=== PATIENT | male | born 1945 | race Caucasian/White ===

== ENCOUNTER 2016-05-15 11:15 | Observation (INO) ==
[2016-05-15] MEDS ORDERED: 0.9 % Sodium Chloride 1,000 ML IVC ONE (13:41)
[2016-05-15] MEDS ORDERED: 0.9 % Sodium Chloride 1,000 ML ONE (13:54)
--- NOTE | 2016-05-15 13:55 | Emergency Department Note ---
Disposition Clinical Impression: Mass of right lung, Dehydration, Elevated troponin Disposition: Admitted As Inpatient Condition: Serious Time of Disposition: 17:16 Nausea/Vomiting/Diarrhea HPI - General Chief complaint: ED Nausea/Vomiting/Diarrhea Stated complaint: Loss of appetite, weakness, vomiting Time Seen by Provider: 05/15/16 12:07 Source: patient, family Limitations: no limitations Nursing Notes Reviewed: Yes Vital Signs Reviewed: Yes - History of Present Illness HPI Narrative: 70-year-old male with history of smoking, previous TIA/stroke in 2015, presents with generalized weakness and 40 pounds weight loss over the last month. Patient reports some cough and congestion, was recently prescribed Augmentin 4 days ago but unable to take it secondary to the pill being too large. Patient denies chest pain but does report nausea and vomiting, denies abdominal pain, Pt Subjective Complaint: nausea, vomiting Associated Abdominal Pain: No Severity: mild Severity scale (1-10): 1 Quality: cramping Improves with: nothing Worsens with: nonthing Associated symptoms: Reports: loss of appetite, weakness - Related Data Home Medications Medication Instructions Recorded Confirmed Atorvastatin [Lipitor] 40 mg PO DAILY 12/02/14 05/15/16 Alprazolam [Xanax 0.25 MG Tablet] 0.25 mg PO HS PRN 05/15/16 05/15/16 Amoxicillin/Clavulanate [Augmentin] 875 mg PO BID 05/15/16 05/15/16 BuPROPion SR (12 HR) [Wellbutrin 150 mg PO BID 05/15/16 05/15/16 SR] Docusate [Colace] 100 mg PO DAILY PRN 05/15/16 05/15/16 Allergies Allergy/AdvReac Type Severity Reaction Status Date / Time No Known Allergies Allergy Verified 11/28/14 20:44 Review of Systems: A 10 point ROS was obtained from the historian. All other systems were reviewed and negative, except as per below, or as documented in the HPI. Constitutional: +chills Denies: fever, chills, weight changes Eyes: Denies: vision changes, eye pain ENT: Denies: nasal congestion, sore throat CV: Denies: chest pain, palpitations, leg swelling Resp: Denies: cough, dyspnea, wheezes, hemoptysis GI: Denies: abdominal pain, N/V/D/C, hematochezia, melena Denies: dysuria, hematuria MSK: Denies: back pain, neck pain, extremity pain Skin: Denies: new rashes, new lesions Neuro: Reports generalized weakness mild right-sided weakness is consistent with his baseline Denies: MEYER sensory changes, gait difficulty Psych: Denies: anxiety, depression All systems ED: reviewed and negative except as stated. Past Medical History - Past Medical History Attestation: Yes The following information was validated with the patient. Source: patient Medical history: Reports: hyperlipidemia, hypertension Psychiatric history: Reports: depression - Social History Smoking Status: Current every day smoker Smokeless Tobacco Status: No Alcohol use: Reports: none Drug use: Reports: none Physical Exam Constitutional: Patient appears weak older stated age, within normal limits HEENT: NCAT, sclera anicteric, PERRLA bilaterally, normal external ears bilaterally, nasal septum nondeviated, average dentition, MMM Neck: normal inspection, neck is supple, trachea midline, no JVD Resp: normal chest inspection, CTA bilaterally, no resp distress, symmetric chest rise CV: RRR, no m/g/r, Pulses +2 Rad, +2 DP/PT bilaterally, no pedal edema GI: normal inspection, Soft, NTND, BS present and normoactive Back: normal inspection, no tenderness to palpation Neuro: A&O3, CN II-XII grossly intact bilaterally, no gross motor or sensory deficits bilaterally MSK: normal inspection, bilateral UE and LE with normal ROM and no deformities Psych: normal mood, normal affect Skin: No rashes, skin warm, dry, intact - General Limitations: no limitations General appearance: alert Course Course Narrative: 70-year-old male with weakness and 40 pounds weight loss over the last month, with a chest pain workup with chest x-ray basic lab work recess, given weight loss concerning for malignant etiology for his symptoms. With her fluid ordered - Reevaluation(s) Reevaluation #1: Patient's x-ray demonstrates right hilar mass with a CT scan to confirm. Reevaluation #2: CTA of chest no pulmonary embolus, new right-sided lung mass suspicious for neoplasm less excluded, 6 x 4 cm with surrounding adenopathy, discussed with the patient this is likely neoplasm, admitting the patient for weakness weight loss, probable new right lung cancer, unknown primary or metastatic, favor primary given history of smoking, accepted by Carlotta MENENDEZ hospitalist. Time: 17:15 Vital Signs Temperature 97.7 F 05/15/16 11:23 Pulse Rate 95 05/15/16 11:23 Respiratory Rate 18 05/15/16 11:23 Blood Pressure 100/61 05/15/16 11:23 O2 Sat by Pulse Oximetry 95 05/15/16 11:23 Temperature 97.7 F 05/15/16 11:23 Pulse Rate 89 05/15/16 16:09 Respiratory Rate 20 05/15/16 17:19 Blood Pressure 145/96 05/15/16 17:19 O2 Sat by Pulse Oximetry 92 L 05/15/16 16:09 Oxygen Delivery Oxygen Delivery Nasal Cannula Nausea/Vomiting/Diarrhea - MDM Narrative Medical decision making narrative: 70-year-old male with new right lung mass, admitted to medicine service for further workup and probable lung cancer, stable at time of ED disposition - Differential Diagnosis Likely: gastroenteritis, dehydration - Medical Records Medical records reviewed: Yes I reviewed the patient's medical records. - Lab Data Lab results reviewed: Yes I reviewed the patient's lab results. Result diagrams: 05/15/16 13:35 05/15/16 13:35 Lab Results 05/15/16 05/15/16 05/15/16 Range/Units 13:35 13:35 13:35 WBC 8.3 (4.3-11.1) K/mcL RBC 4.98 (4.19-5.50) M/mcL Hgb 15.3 (12.9-16.9) g/dL Hct 45.2 (37.5-50.1) % MCV 90.8 (83.0-100.0) fL MCH 30.7 (28.0-33.3) pg MCHC 33.8 (31.6-35.5) g/dL RDW 12.5 (11.5-14.5) % Plt Count 254 (140-400) K/mcL MPV 10.0 (9.4-12.4) fL Immature Gran % 0.5 (0-4) % Seg Neutrophils % 69.4 % Lymphocytes % 20.3 % Monocytes % 7.0 % Eosinophils % 2.3 % Basophils % 0.5 % Neutrophils # 5.8 (1.6-8.9) K/mcL Lymphocytes # 1.7 (0.6-4.6) K/mcL Monocytes # 0.6 (0.0-1.3) K/mcL Eosinophils # 0.2 (0.0-0.6) K/mcL Basophils # 0.0 (0.0-0.2) K/mcL PT (9.4-12.1) Seconds INR APTT (26.0-36.0) Seconds Sodium 136 (136-145) mEq/L Potassium 4.4 (3.5-4.5) mEq/L Chloride 99 (98-109) mEq/L Carbon Dioxide 23 (19-29) mEq/L BUN 24 (8-26) mg/dL Creatinine 1.22 (0.72-1.25) mg/dL Est GFR ( Amer) > 60 (> 60) Est GFR (Non-Af Amer) 58 L (> 60) BUN/Creatinine Ratio 20 (6-26) Glucose 102 H (70-99) mg/dL Calculated Osmolality 286 (280-300) Calcium 9.7 (8.6-10.8) mg/dL Total Bilirubin 0.9 (0.2-1.2) mg/dL AST 39 H (5-34) Units/L ALT 28 (0-55) Units/L Alkaline Phosphatase 164 H (38-126) Units/L Troponin I 0.05 H* (0-0.03) ng/mL B-Natriuretic Peptide (0-100) pg/mL Serum Total Protein 7.4 (6.0-8.3) g/dL Albumin 3.7 (3.5-5.0) g/dL Globulin 3.7 H (2.4-3.5) g/dL Albumin/Globulin Ratio 1.0 L (1.1-2.2) Lipase (8-78) Units/L Urine Color (Yellow) Urine Clarity (Clear) Urine pH (5.0-8.0) pH Units Ur Specific Bryant (1.010-1.025) Urine Protein (Neg-Trace) mg/dL Urine Glucose (UA) (Normal) mg/dL Urine Ketones (Negative) mg/dL Urine Blood (Negative) Urine Nitrite (Negative) Urine Bilirubin (Negative) Urine Urobilinogen (Normal) mg/dL Ur Leukocyte Esterase (Negative) Urine Microscopic RBC (0-3) per hpf Urine Microscopic WBC (0-3) per hpf Ur Squamous Epith Cells (None-Few) per lpf Urine Bacteria (None-Few) per hpf Hyaline Casts Ur Culture Indicated? (NO) 05/15/16 05/15/16 05/15/16 Range/Units 13:35 13:35 13:35 WBC (4.3-11.1) K/mcL RBC (4.19-5.50) M/mcL Hgb (12.9-16.9) g/dL Hct (37.5-50.1) % MCV (83.0-100.0) fL MCH (28.0-33.3) pg MCHC (31.6-35.5) g/dL RDW (11.5-14.5) % Plt Count (140-400) K/mcL MPV (9.4-12.4) fL Immature Gran % (0-4) % Seg Neutrophils % % Lymphocytes % % Monocytes % % Eosinophils % % Basophils % % Neutrophils # (1.6-8.9) K/mcL Lymphocytes # (0.6-4.6) K/mcL Monocytes # (0.0-1.3) K/mcL Eosinophils # (0.0-0.6) K/mcL Basophils # (0.0-0.2) K/mcL PT 12.2 H (9.4-12.1) Seconds INR 1.1 APTT 28.5 (26.0-36.0) Seconds Sodium (136-145) mEq/L Potassium (3.5-4.5) mEq/L Chloride (98-109) mEq/L Carbon Dioxide (19-29) mEq/L BUN (8-26) mg/dL Creatinine (0.72-1.25) mg/dL Est GFR ( Amer) (> 60) Est GFR (Non-Af Amer) (> 60) BUN/Creatinine Ratio (6-26) Glucose (70-99) mg/dL Calculated Osmolality (280-300) Calcium (8.6-10.8) mg/dL Total Bilirubin (0.2-1.2) mg/dL AST (5-34) Units/L ALT (0-55) Units/L Alkaline Phosphatase (38-126) Units/L Troponin I (0-0.03) ng/mL B-Natriuretic Peptide 20 (0-100) pg/mL Serum Total Protein (6.0-8.3) g/dL Albumin (3.5-5.0) g/dL Globulin (2.4-3.5) g/dL Albumin/Globulin Ratio (1.1-2.2) Lipase 77 (8-78) Units/L Urine Color (Yellow) Urine Clarity (Clear) Urine pH (5.0-8.0) pH Units Ur Specific Bryant (1.010-1.025) Urine Protein (Neg-Trace) mg/dL Urine Glucose (UA) (Normal) mg/dL Urine Ketones (Negative) mg/dL Urine Blood (Negative) Urine Nitrite (Negative) Urine Bilirubin (Negative) Urine Urobilinogen (Normal) mg/dL Ur Leukocyte Esterase (Negative) Urine Microscopic RBC (0-3) per hpf Urine Microscopic WBC (0-3) per hpf Ur Squamous Epith Cells (None-Few) per lpf Urine Bacteria (None-Few) per hpf Hyaline Casts Ur Culture Indicated? (NO) 05/15/16 Range/Units 13:58 WBC (4.3-11.1) K/mcL RBC (4.19-5.50) M/mcL Hgb (12.9-16.9) g/dL Hct (37.5-50.1) % MCV (83.0-100.0) fL MCH (28.0-33.3) pg MCHC (31.6-35.5) g/dL RDW (11.5-14.5) % Plt Count (140-400) K/mcL MPV (9.4-12.4) fL Immature Gran % (0-4) % Seg Neutrophils % % Lymphocytes % % Monocytes % % Eosinophils % % Basophils % % Neutrophils # (1.6-8.9) K/mcL Lymphocytes # (0.6-4.6) K/mcL Monocytes # (0.0-1.3) K/mcL Eosinophils # (0.0-0.6) K/mcL Basophils # (0.0-0.2) K/mcL PT (9.4-12.1) Seconds INR APTT (26.0-36.0) Seconds Sodium (136-145) mEq/L Potassium (3.5-4.5) mEq/L Chloride (98-109) mEq/L Carbon Dioxide (19-29) mEq/L BUN (8-26) mg/dL Creatinine (0.72-1.25) mg/dL Est GFR ( Amer) (> 60) Est GFR (Non-Af Amer) (> 60) BUN/Creatinine Ratio (6-26) Glucose (70-99) mg/dL Calculated Osmolality (280-300) Calcium (8.6-10.8) mg/dL Total Bilirubin (0.2-1.2) mg/dL AST (5-34) Units/L ALT (0-55) Units/L Alkaline Phosphatase (38-126) Units/L Troponin I (0-0.03) ng/mL B-Natriuretic Peptide (0-100) pg/mL Serum Total Protein (6.0-8.3) g/dL Albumin (3.5-5.0) g/dL Globulin (2.4-3.5) g/dL Albumin/Globulin Ratio (1.1-2.2) Lipase (8-78) Units/L Urine Color Dark Yellow (Yellow) Urine Clarity Clear (Clear) Urine pH 5.5 (5.0-8.0) pH Units Ur Specific Bryant 1.028 H (1.010-1.025) Urine Protein 30 H (Neg-Trace) mg/dL Urine Glucose (UA) Normal (Normal) mg/dL Urine Ketones 40 H (Negative) mg/dL Urine Blood Negative (Negative) Urine Nitrite Negative (Negative) Urine Bilirubin Moderate H (Negative) Urine Urobilinogen Normal (Normal) mg/dL Ur Leukocyte Esterase Negative (Negative) Urine Microscopic RBC 0-3 (0-3) per hpf Urine Microscopic WBC 0-3 (0-3) per hpf Ur Squamous Epith Cells Many H (None-Few) per lpf Urine Bacteria None Seen (None-Few) per hpf Hyaline Casts Test Not Performed Ur Culture Indicated? NO (NO) - EKG Data EKG attestation: Yes I reviewed and interpreted this EKG. EKG shows normal: sinus rhythm Rate: tachycardia (101 bpm MO over for QRS 86 QTC 397) Interpretation: no acute changes - Core Measures AMI Core Measures Followed: Yes Attestation Statement - Attestation Attestation: For this encounter, I have reviewed the resident, ANESTHESIOLOGY MEDICAL DOCTOR, or PA documentation, treatment plan, and medical decision making; and I have had face to face time with this patient. 70-year-old male presents with concerns of weakness, fatigue, nausea, vomiting over the past week. Patient denies fever, chills, palpitations, diaphoresis. Patient reports intermittent chest pain with coughing only and does not have pain when resting. Patient has had decreased by mouth intake over the past 2 months with significant weight loss. Patient has a mildly elevated troponin. He also has a mass identified on CT. This is possibly a cancerous mass and the patient will be admitted to the hospital for evaluation of his elevated troponin and new diagnosis of mass. pt is comfortable with the plan and agreed to admission to the hospital
[2016-05-15 14:02] LABS: Basophils % 0.5 %; Eosinophils # 0.2 K/mcL (0.0-0.6); Eosinophils % 2.3 %; Hematocrit 45.2 % (37.5-50.1); Hemoglobin 15.3 g/dL (12.9-16.9); Immature Granulocytes % 0.5 % (0-4); Lymphocytes # 1.7 K/mcL (0.6-4.6); Lymphocytes % 20.3 %; Mean Corpuscular HGB Conc 33.8 g/dL (31.6-35.5); Mean Corpuscular Hemoglobin 30.7 pg (28.0-33.3); Mean Corpuscular Volume 90.8 fL (83.0-100.0); Monocytes # 0.6 K/mcL (0.0-1.3); Neutrophils # 5.8 K/mcL (1.6-8.9); Platelet Count 254 K/mcL (140-400); Red Blood Count 4.98 M/mcL (4.19-5.50); Red Cell Distribution Width 12.5 % (11.5-14.5); Segmented Neutrophils % 69.4 %
[2016-05-15 14:09] LABS: Bilirubin,Urine Moderate (Negative); Blood,Urine Negative (Negative); Clarity,Urine Clear (Clear); Color,Urine Dark Yellow (Yellow); Glucose,Urine (UA) Normal (Normal); Ketones,Urine 40 mg/dL (Negative); Leukocyte Esterase,Urine Negative (Negative); Nitrite,Urine Negative (Negative); PH,Urine 5.5 pH Units (5.0-8.0); Protein,Urine 30 mg/dL (Neg-Trace); Specific Gravity,Urine 1.028 (1.010-1.025); Urobilinogen,Urine Normal (Normal)
[2016-05-15 14:12] LABS: Activated Partial Thrombo Time 28.5 Seconds (26.0-36.0); INR 1.1; Prothrombin Time 12.2 Seconds (9.4-12.1)
[2016-05-15 14:12] LABS: Bacteria,Urine None Seen per hpf (None-Few); RBC,Urine 0-3 per hpf (0-3); Squamous Epithelial Cell,Urine Many per lpf (None-Few); WBC,Urine 0-3 per hpf (0-3)
[2016-05-15 14:17] LABS: Alanine Aminotransferase 28 Units/L (0-55); Albumin 3.7 g/dL (3.5-5.0); Alkaline Phosphatase 164 Units/L (38-126); Aspartate Amino Transferase 39 Units/L (5-34); BUN/Creatinine Ratio 20 (6-26); Bilirubin,Total 0.9 mg/dL (0.2-1.2); Blood Urea Nitrogen 24 mg/dL (8-26); Calcium 9.7 mg/dL (8.6-10.8); Carbon Dioxide 23 mEq/L (19-29); Chloride 99 mEq/L (98-109); Globulin 3.7 g/dL (2.4-3.5); Glucose 102 mg/dL (70-99); Osmolality,Calculated 286 (280-300); Potassium 4.4 mEq/L (3.5-4.5); Sodium 136 mEq/L (136-145); Total Protein 7.4 g/dL (6.0-8.3); eGFR For African Americans > 60 (> 60); eGFR For Non-African Americans 58 (> 60)
[2016-05-15] MEDS ORDERED: Aspirin 81 MG TAB.CHEW PO ONE (14:41)
--- NOTE | 2016-05-15 20:46 | Internal Med History&Physical ---
Date of Encounter: 05/15/16 Time of Encounter: 20:42 Assessment and Plan (1) Mass of right lung Current visit: Yes Status: Acute This is a new finding, suspicious for malignancy given size, lymphadenopathy, weight loss and smoking history Will consult pulmonology for possible bronchoscopy; NPO at midnight in case of intervention He certainly dose warrant an Oncology consultation once biopsy obtained (2) H/O cerebral aneurysm repair Current visit: Yes Status: Chronic This was in 2014 and where he underwent emergent surgical repair Will obtain non contrast head CT for further evaluation as it may contribute to his nausea/vomiting (3) Gastroenteritis Current visit: Yes Status: Suspected Patient only had one episode of diarrhea yesterday and has no signs/symptoms of infection, suggesting viral etiology Will continue supportive measures with maintenance IVF hydration (4) Elevated troponin Current visit: Yes Status: Acute Minimal elevation of 0.05 likely demand ischemia in setting of dehydration secondary to nausea/diarrhea Will trend troponin x2 (5) DVT prophylaxis Current visit: Yes Status: Acute Heparin 5000 units BID Internal Medicine - H&P: HPI Chief complaint: nausea, vomiting, diarrhea Admitted From: Home Plans for Post Hospital Care: Home History of present illness: Mr. Wilburn is a 70 year old male who presents to the emergency department with nausea along with one episode of vomiting and diarrhea yesterday. He states that yesterday evening after eating a snack he became suddenly nauseous and had an episode of vomit. He describes it as clear and nonbloody. He also had a nonbloody episodes of diarrhea yesterday but none since then. Denies any abdominal pain during this time. However, he has been experiencing nausea since last night but he is still eating food and drinking liquids. He does describe a 40 pound weight loss in the past month without intention. He denies any history of cancers but did mention having a stroke and brain aneurysm last year, with sequalae of right lower extremity weakness. Patient currently denies any chest pain, shortness of breath, fever, chills, diarrhea. Past Med Surg Social Fam HX - Past Medical History Medical history: hyperlipidemia, hypertension Psychiatric history: depression - Social History Smoking Status: Current every day smoker Packs per day: 0.5 Smokeless Tobacco Status: No Alcohol use: none Drug use: none Internal Medicine - H&P: Meds Atorvastatin [Lipitor] 40 mg PO DAILY 12/02/14 [History] Alprazolam [Xanax 0.25 MG Tablet] 0.25 mg PO HS PRN 05/15/16 [History] Amoxicillin/Clavulanate [Augmentin] 875 mg PO BID 05/15/16 [History] BuPROPion SR (12 HR) [Wellbutrin SR] 150 mg PO BID 05/15/16 [History] Docusate [Colace] 100 mg PO DAILY PRN 05/15/16 [History] Allergies No Known Allergies Allergy (Verified 11/28/14 20:44) All Systems PM: A 10-system review of systems was performed and is negative for pertinent findings except as documented above in the HPI. - Constitutional Constitutional: weight loss, no chills, no fever(s), no night sweats - EENT Eyes: no change in vision, no discharge, no pain, no photophobia Ears: no ear discharge, no ear pain, no tinnitus Nose, mouth and throat: no dysphagia, no nasal discharge, no neck pain, no sore throat - Cardiovascular Cardiovascular ROS IM: no chest pain, no diaphoresis, no dyspnea, no lightheadedness, no palpitations, no syncope - Respiratory Respiratory: no cough, no dyspnea, no wheezing, no excessive phlegm production - Gastrointestinal Gastrointestinal: diarrhea, nausea, vomiting, no abdominal pain, no hematemesis , no hematochezia, no melena - Genitourinary Genitourinary ROS male: urinary hesitancy - Musculoskeletal Musculoskeletal ROS IM: no numbness, no tingling - Integumentary Integumentary IM: no rash, no unusual bruising - Neurological Neurological ROS: focal weakness (right lower extremity s/p stroke), no confusion, no convulsions, no numbness, no tingling, no tremor(s) - Hematologic/Lymphatic Hematologic/Lymphatic: no easy bruising - Constitutional Vitals: Temp Pulse Resp BP Pulse Ox 98.2 F 103 16 110/67 91 L 05/15/16 18:57 05/15/16 18:57 05/15/16 18:57 05/15/16 18:57 05/15/16 18:57 General appearance: Present: cooperative, A&O X 3, pleasant, no acute distress, answers questions appropriately - Head Head exam: Present: atraumatic, normocephalic - Eye Eye exam: Present: PERRL, conjuntiva pink, sclera anicteric - Neck Neck exam general surgery: Present: supple, trachea midline. Absent: lymphadenopathy - Respiratory Respiratory exam: Present: CTAB. Absent: accessory muscle use, rales, rhonchi, wheezes - Cardiovascular Cardiovascular exam: Present: RRR, +S1, +S2. Absent: diastolic murmur, gallop, rubs, systolic murmur - GI/Abdominal GI/Abdominal exam: Present: normal bowel sounds, soft, no peritoneal signs. Absent: distended, tenderness - Extremities Exam Extremities exam: Present: warm, radial pulses palpable and symetrical. Absent : calf tenderness, cyanotic, pedal edema - Neurological Exam Neurological exam: Present: alert, oriented X3, no focal deficits. Absent: strengths equal and symetr throughout (right leg 4/5 strength when flexing at hip; 5/5 on left side), pronater drift, facial droop, speech deficit - Skin Skin exam: Present: dry, intact Internal Med - H&P Results - Labs CBC & Chem 7: 05/15/16 13:35 05/15/16 13:35
[2016-05-15] MEDS ORDERED: Naloxone 0.4 MG/ML INJ IVP PRN (21:38)
[2016-05-15] MEDS ORDERED: Ondansetron ODT 4 MG TAB.RAPDIS SL PRN (21:38)
[2016-05-15] MEDS ORDERED: Acetaminophen 325 MG TABLET PO PRN (21:38)
[2016-05-15] MEDS ORDERED: ALPRAZolam 0.25 MG TABLET PO PRN (21:45)
[2016-05-15] MEDS: 0.9 % Sodium Chloride 1,000 ML IVC SCH (22:40)
[2016-05-16 05:53] LABS: Basophils % 0.4 %; Eosinophils # 0.5 K/mcL (0.0-0.6); Eosinophils % 6.3 %; Hematocrit 40.9 % (37.5-50.1); Immature Granulocytes % 0.7 % (0-4); Lymphocytes # 1.7 K/mcL (0.6-4.6); Lymphocytes % 22.4 %; Mean Corpuscular HGB Conc 33.3 g/dL (31.6-35.5); Mean Corpuscular Hemoglobin 30.7 pg (28.0-33.3); Mean Corpuscular Volume 92.3 fL (83.0-100.0); Monocytes # 0.5 K/mcL (0.0-1.3); Monocytes % 7.3 %; Neutrophils # 4.7 K/mcL (1.6-8.9); Platelet Count 244 K/mcL (140-400); Red Blood Count 4.43 M/mcL (4.19-5.50); Red Cell Distribution Width 12.6 % (11.5-14.5); Segmented Neutrophils % 62.9 %
[2016-05-16 05:57] LABS: Hemoglobin 13.6 g/dL (12.9-16.9)
[2016-05-16 06:02] LABS: BUN/Creatinine Ratio 17 (6-26); Blood Urea Nitrogen 16 mg/dL (8-26); Calcium 8.7 mg/dL (8.6-10.8); Carbon Dioxide 23 mEq/L (19-29); Chloride 103 mEq/L (98-109); Glucose 59 mg/dL (70-99); Osmolality,Calculated 283 (280-300); Sodium 137 mEq/L (136-145); eGFR For African Americans > 60 (> 60); eGFR For Non-African Americans > 60 (> 60)
[2016-05-16] MEDS: *HR* Heparin 5,000 UNIT/ML VIAL SQ SCH ×2 (06:06→17:45)
[2016-05-16] MEDS ORDERED: Ipratropium/Albuterol Neb 3 ML IH PRN (08:40)
--- NOTE | 2016-05-16 09:39 | Internal Med Progress Note ---
Date of Encounter: 05/16/16 Time of Encounter: 09:37 - Assessment and plan (1) Dehydration Current Visit: Yes Status: Acute Assessment and plan: Dehydration secondary to possibly viral gastroenteritis Continue IV fluids, resume diet as the patient is not a scheduled to have any bronchoscopy today (2) Mass of right lung Current Visit: Yes Status: Acute Assessment and plan: Newly diagnosed right lung mass CT scan shows a right suprahilar 6.5 x 4 cm mass with mediastinal and right heel or lymphadenopathy. 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, small old infarction in bilateral cingulate gyri (5) Gastroenteritis Current Visit: Yes Status: Suspected Assessment and plan: as state above (6) CVA (cerebral infarction) Current Visit: No Status: Acute Qualifiers: Cerebral infarction mechanism: vascular occlusion Precerebral and cerebral artery: unspecified precerebral artery Qualified Code(s): I63.20 - Cerebral infarction due to unspecified occlusion or stenosis of unspecified precerebral arteries (7) Tobacco abuse Current Visit: Yes Status: Acute Assessment and plan: smoking cessation counseling for 5 min . Nicotine patch offered - Time Spent With Patient Greater than 35 minutes - Subjective Interval history: had very loose BMs yesterday, not today, was dehydrated and his daughter brought him here as he has been loosing weight, had a respiratory infection last week treate for just a couple of days with amoxicillin but he was not able to keep taking his pills. Denies CP , feels slightly SOB, no fever, no abdominal pain , no dysuria - Constitutional Vitals: Temp Pulse Resp BP Pulse Ox 97.8 F 100 16 116/77 93 L 05/16/16 06:58 05/16/16 06:58 05/16/16 06:58 05/16/16 06:58 05/16/16 06:58 General appearance: Present: cachectic, cooperative, A&O X 3, pleasant, no acute distress, answers questions appropriately - Head Head exam: Present: atraumatic, normocephalic - Eye Eye exam: Present: PERRL, conjuntiva pink, sclera anicteric Pupils: Present: PERRL - Neck Neck exam general surgery: Present: supple, trachea midline. Absent: lymphadenopathy - Respiratory Respiratory exam: Present: decreased breath sounds, CTAB. Absent: accessory muscle use, rales, rhonchi, wheezes - Cardiovascular Cardiovascular exam: Present: RRR, +S1, +S2. Absent: diastolic murmur, gallop, rubs, systolic murmur - GI/Abdominal GI/Abdominal exam: Present: normal bowel sounds, soft, no peritoneal signs. Absent: distended, tenderness - Extremities Exam Extremities exam: Present: warm, radial pulses palpable and symetrical. Absent : calf tenderness, cyanotic, pedal edema - Neurological Exam Neurological exam: Present: CN II-XII intact, oriented X3, no focal deficits. Absent: pronater drift, facial droop, speech deficit - Skin Skin exam: Present: dry, intact Internal Medicine: Result - Labs CBC & Chem 7: 05/16/16 04:50 05/16/16 04:50 Labs: Short CBC 05/16/16 Range/Units 04:50 WBC 7.4 (4.3-11.1) K/mcL Hgb 13.6 D (12.9-16.9) g/dL Hct 40.9 (37.5-50.1) % Plt Count 244 (140-400) K/mcL Neutrophils # 4.7 (1.6-8.9) K/mcL BMP 05/16/16 04:50 Sodium 137 Potassium 4.0 Chloride 103 Carbon Dioxide 23 BUN 16 Creatinine 0.92 Glucose 59 L Calcium 8.7 Cardiac Enzymes 05/16/16 Range/Units 04:50 Troponin I 0.04 H* (0-0.03) ng/mL - ABG Interpretation ABG results: PT/INR, D-dimer PT 12.2 Seconds (9.4-12.1) H 05/15/16 13:35 Consult Discharge Plan - Plan Referrals: Bonita Xavier MD [Primary Care Provider] -
[2016-05-16] MEDS: BuPROPion SR (12 HR) 150 MG TABLET PO SCH ×2 (09:46→22:38)
[2016-05-16] MEDS: Famotidine 20 MG TABLET PO SCH ×2 (09:46→22:38)
--- NOTE | 2016-05-16 09:47 | Pulmonology Consult Note ---
Date of Encounter: 05/16/16 Time of Encounter: 08:00 History of Present Illness Consult date: 05/16/16 Chief complaint: Cough, dyspnea and fatigue History of present illness: Is pleasant 70-year-old male extensive smoker who has no well-established history of significant occupational exposures that would increase his risk of malignancy, presented to the hospital with the outlined complaints. Imaging was obtained which revealed a right suprahilar mass in conjunction with concurrent hilar mediastinal adenopathy and hence pulmonary consultation requested. The patient admits to nonelective 10-12 pound weight loss, progressive fatigue, progressive breathlessness and anorexia. Past Med Surg Social Fam HX - Past Medical History Medical history: hyperlipidemia, hypertension Psychiatric history: depression - Social History Smoking Status: Current every day smoker Packs per day: 0.5 Smokeless Tobacco Status: No Alcohol use: none Drug use: none Medications and Allergies Atorvastatin [Lipitor] 40 mg PO DAILY 12/02/14 [History] Alprazolam [Xanax 0.25 MG Tablet] 0.25 mg PO HS PRN 05/15/16 [History] Amoxicillin/Clavulanate [Augmentin] 875 mg PO BID 05/15/16 [History] BuPROPion SR (12 HR) [Wellbutrin SR] 150 mg PO BID 05/15/16 [History] Docusate [Colace] 100 mg PO DAILY PRN 05/15/16 [History] Allergies No Known Allergies Allergy (Verified 11/28/14 20:44) All Systems: A 10-system review of systems was performed and is negative for pertinent findings except as documented above in the HPI. - Constitutional Constitutional: as per HPI - Cardiovascular Cardiovascular: as per HPI - Respiratory Respiratory: as per HPI Physical Examination Vital Signs: Vital Signs, Last 4 Hours Temp Pulse Resp BP Pulse Ox 05/16/16 06:58 97.8 F 100 16 116/77 93 L General appearance: no acute distress, other (Cachectic appearing male) Eyes: nonicteric Neck: supple, no lymphadenopathy Effort: normal Auscultation: bilateral: diminished breath sounds Cardiovascular: regular rate and rhythm Gastrointestinal: normoactive bowel sounds, non-distended Integumentary: normal Extremities: no cyanosis, no edema, other (Tobacco staining of fingers) Musculoskeletal: no deformities normal mental status, non-focal exam Results - Laboratory Findings CBC and BMP: 05/16/16 04:50 05/16/16 04:50 PT/INR, D-dimer PT 12.2 Seconds (9.4-12.1) H 05/15/16 13:35 Abnormal lab findings: Abnormal lab results PT 12.2 Seconds (9.4-12.1) H 05/15/16 13:35 Glucose 59 mg/dL (70-99) L 05/16/16 04:50 AST 39 Units/L (5-34) H 05/15/16 13:35 Alkaline Phosphatase 164 Units/L (38-126) H 05/15/16 13:35 Troponin I 0.04 ng/mL (0-0.03) H* 05/16/16 04:50 Globulin 3.7 g/dL (2.4-3.5) H 05/15/16 13:35 Albumin/Globulin Ratio 1.0 (1.1-2.2) L 05/15/16 13:35 Ur Specific [place] 1.028 (1.010-1.025) H 05/15/16 13:58 Urine Protein 30 mg/dL (Neg-Trace) H 05/15/16 13:58 Urine Ketones 40 mg/dL (Negative) H 05/15/16 13:58 Urine Bilirubin Moderate (Negative) H 05/15/16 13:58 Ur Squamous Epith Cells Many per lpf (None-Few) H 05/15/16 13:58 - Clinical Findings Intake & Output: Intake & Output 05/15/16 05/16/16 05/16/16 23:59 07:59 15:59 Intake Total 0 / 0 Balance 0 / 0 Consult Discharge Plan - Plan Referrals: Bonita Xavier MD [Primary Care Provider] -
--- NOTE | 2016-05-16 09:53 | Event Note ---
Date of Encounter: 05/16/16 Time of Encounter: 08:00 Please see the consultation which for unclear reasons did not allow me to place and assessment and plan hence this is the assessment and plan. Abnormal chest CT scan. The findings of the chest CT scan are consistent with advanced stage lung cancer likely non-small cell and for further evaluation EBUS will be performed tomorrow. I reviewed this with the patient and he is agreeable. Given the patient's smoking history physical examination findings and findings from review of CT scan. He also has COPD. Side from smoking cessation, I recommended bronchodilator therapy.
[2016-05-16] MEDS: 0.9 % Sodium Chloride 1,000 ML IVC SCH (12:25)
[2016-05-17] MEDS: 0.9 % Sodium Chloride 1,000 ML IVC SCH ×2 (04:48→06:15)
[2016-05-17] MEDS: *HR* Heparin 5,000 UNIT/ML VIAL SQ SCH ×2 (06:14→17:57)
[2016-05-17] MEDS: BuPROPion SR (12 HR) 150 MG TABLET PO SCH ×2 (07:29→20:17)
[2016-05-17] MEDS: Famotidine 20 MG TABLET PO SCH ×2 (07:29→20:16)
--- NOTE | 2016-05-17 08:38 | Pulmonology Progress Note ---
Date of Encounter: 05/17/16 Time of Encounter: 08:34 Assessment and Plan (1) Mass of right lung Current Visit: Yes Status: Acute Based upon patient's risk factors for malignancy as well as the radiographic findings as previously outlined, more likely, the patient has advanced stage non -small cell or small cell lung cancer. Patient does have supraclavicular adenopathy and if for some reason bronchoscopy is nondiagnostic then the right supraclavicular lymph node can be biopsied. The patient is scheduled for endobronchial ultrasound guided sampling later today. A short course of steroids has been ordered in order to enhance the patient's tolerance of the procedure given COPD. I reviewed the indications with the patient in reference to the procedure and he has agreed to proceed as outlined. Code(s): R91.8 - Other nonspecific abnormal finding of lung field SNOMED Code( s): 588632069 Subjective Principal diagnosis: lung mass, abnormal chest CT Interval history: The patient denies any significant systemic or respiratory complaints at this time. He does note mild exertional breathlessness but denies cough sputum production or hemoptysis. Objective PUL Vital signs: Last Vital Signs Temp 97.9 F 05/17/16 07:10 Pulse 92 05/17/16 07:10 Resp 15 05/17/16 07:10 BP 124/62 05/17/16 07:10 Pulse Ox 94 L 05/17/16 07:10 General appearance: no acute distress Eyes: nonicteric ENT: oropharynx moist Neck: supple, other (Note right supra-clavicular lymphadenopathy) Effort: normal Auscultation: bilateral: diminished breath sounds Cardiovascular: regular rate and rhythm Gastrointestinal: normoactive bowel sounds, non-distended Integumentary: normal Extremities: no cyanosis Musculoskeletal: no deformities normal mental status, non-focal exam mood appropriate Results - Laboratory Findings CBC and BMP: 05/16/16 04:50 05/16/16 04:50 PT/INR, D-dimer PT 12.2 Seconds (9.4-12.1) H 05/15/16 13:35 Abnormal lab findings: Abnormal lab results PT 12.2 Seconds (9.4-12.1) H 05/15/16 13:35 Glucose 59 mg/dL (70-99) L 05/16/16 04:50 AST 39 Units/L (5-34) H 05/15/16 13:35 Alkaline Phosphatase 164 Units/L (38-126) H 05/15/16 13:35 Troponin I 0.04 ng/mL (0-0.03) H* 05/16/16 04:50 Globulin 3.7 g/dL (2.4-3.5) H 05/15/16 13:35 Albumin/Globulin Ratio 1.0 (1.1-2.2) L 05/15/16 13:35 Ur Specific [place] 1.028 (1.010-1.025) H 05/15/16 13:58 Urine Protein 30 mg/dL (Neg-Trace) H 05/15/16 13:58 Urine Ketones 40 mg/dL (Negative) H 05/15/16 13:58 Urine Bilirubin Moderate (Negative) H 05/15/16 13:58 Ur Squamous Epith Cells Many per lpf (None-Few) H 05/15/16 13:58 - Clinical Findings Intake & Output: Intake & Output 05/16/16 05/17/16 05/17/16 23:59 07:59 15:59 Intake Total 240 / 240 1000 / 1000 Balance 240 / 240 1000 / 1000 Weight 58.287 kg Consult Discharge Plan - Plan Referrals: Bonita Xavier MD [Primary Care Provider] - 05/23/16 1:45 pm
--- NOTE | 2016-05-17 10:15 | ECHO - Doppler Report ---
Echo with Saline Contrast Name: Ilan Wilburn Date of Study: 05/16/2016 Date: 1945 Ht: 66.0 in Medical Record#: [id number] Age: 70 Wt: 130.0 lb Gender: Male BSA: 1.67 Order #: [id number] Location: [facility] Room #: 3B22 Reading Physician: Orin Saucedo DO Stationary Engineer Supervisor: Edilma Jiménez Ordering Physician: Charbel Ramsey MD Primary Physician: Bonita Xavier MD Indications: Elevated troponin Impressions: LVEF 60%. Normal left ventricular size and systolic function. There is evidence of mild diastolic dysfunction of the left ventricle. Normal right ventricular size and function. Suboptimal Doppler evaluation of the aortic valve. Moderately calcified aortic valve leaflets. No pulmonary hypertension. Left Ventricular Wall Motion: Rest Echo Findings All wall segments showed normal motion. Findings: Study Quality * Technically adequate exam. ECG Findings * Normal sinus rhythm. Left Ventricle * Normal LV chamber size, wall thickness and function. * LVEF 60%. * Basal sigmoid septum. * Mild left ventricular diastolic dysfunction. Aortic Valve * No aortic regurgitation. * Trileaflet aortic valve. * Moderately calcified aortic valve leaflets. * Suboptimal Doppler evaluation. Mitral Valve * No mitral regurgitation. * No mitral stenosis. * Mild mitral annular calcification * Mildly calcified mitral valve leaflets. Tricuspid Valve * Tricuspid valve not well visualized. * Trace tricuspid regurgitation. * Estimated RA pressure is 3 mmHg. * Estimated RVSP is 31 mmHg. * No pulmonary hypertension. Pulmonic Valve * Pulmonic valve is not well visualized. * No pulmonic stenosis. * No pulmonic regurgitation. Pulmonary Artery * Pulmonary artery not well visualized. Right Ventricle * Normal right ventricular structure and function. Left Atrium * Normal left atrial size. Right Atrium * Normal right atrial size. Interatrial Septum * No evidence of PFO by color Doppler. * No evidence of PFO with agitated saline contrast. IVC * The IVC is not dilated. Pericardium * There is no pericardial effusion present. Aorta * Not well visualized. History Hypercholesteremia History of Smoking Years 30 Packs 1 Family History of CAD 08/27/2015 a Previous Echo was performed. Contrast: Agitated saline 20 ml. Measurements: BP: 124/ 82 2D Normal Values IVSd: 1.10 cm 0.6 - 1.0 cm LVIDd: 3.10 cm 3.7 - 5.6 cm LVPWd: 1.10 cm 0.6 - 1.1 cm LVIDs: 2.20 cm 1.5 - 3.6 cm AO: 2.60 cm < 4.0 cm LA: 3.50 cm 2.0 - 4.0cm %FS: 29.00 cm >25 % LVOT Diam: 2.00 cm LA volume: 41 Mitral Valve Peak E:.71 m/sec Peak A:1.05 m/sec E/A Ratio:0.7 Peak E' Lat Sen:6.46 cm/s Peak E' Med Sen:4.68 cm/s E/E' Lat Ratio:11 E/E' Med Ratio:15.2 Aortic Valve Peak Sen:1.86 m/sec Mean Sen:1.28 m/sec Peak Grad:14.00 mmHg Mean Grad:8.00 mmHg Tricuspid Valve TV Regurg Peak Grad: 28.00mmHg TV Regurg Peak Sen: 2.63m/sec Updated by Orin Saucedo on 05/17/2016 10:07:50 AM electronically signed on 05/17/2016 10:08:48 AM with status of Final Wall Motion [place]: 1=Normal, 2=Hypokinesis, 3=Akinesis, 4=Dyskinesis, 5=Aneurysmal, 6=Hyperkinetic, X=Not Visualized (Blank)=Missing
[2016-05-17] MEDS: MethylPREDNISolone 40 MG/ML VIAL IVP SCH ×2 (12:34→17:57)
--- NOTE | 2016-05-17 13:52 | Internal Med Progress Note ---
Date of Encounter: 05/17/16 Time of Encounter: 13:51 - Assessment and plan (1) Mass of right lung Current Visit: Yes Status: Acute Assessment and plan: Newly diagnosed right lung mass CT scan shows a right suprahilar 6.5 x 4 cm mass with mediastinal and right heel or lymphadenopathy. No pulmonary emboli was evidenced s/p EBUS, with bronchoscopy revealing obstructing lesion RUL, extensive mediastinal adenopathy, pathology is ending, suspicion is high for non-small cell Lung CA stage III B Will consult oncology Pulmonology input appreciated (2) Dehydration Current Visit: Yes Status: Acute Assessment and plan: Dehydration secondary to possibly viral gastroenteritis Continue IV fluids, resume diet after EBUS and d/c IVF for tmrw a.m (3) Elevated troponin Current Visit: Yes Status: Acute Assessment and plan: Likely secondary to demand ischemia (4) Tobacco abuse Current Visit: Yes Status: Acute Assessment and plan: smoking cessation counseling for 5 min . 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, small old infarction in bilateral cingulate gyri (6) Gastroenteritis Current Visit: Yes Status: Resolved Assessment and plan: resolved - Subjective Interval history: 70 Y/O M admitted for management and work up of R lung mass, suspected metastatic lung CA, dehydration secodnary to gastroenteritis At my time of review, was awaiting EBUS Has no new complains, ambulatory - Constitutional Vitals: Temp Pulse Resp BP Pulse Ox 97.6 F 78 15 154/94 97 05/17/16 10:57 05/17/16 10:57 05/17/16 10:57 05/17/16 10:57 05/17/16 10:57 General appearance: Present: cachectic, cooperative, A&O X 3, pleasant, no acute distress, answers questions appropriately - Head Head exam: Present: atraumatic, normocephalic - Eye Eye exam: Present: PERRL, conjuntiva pink, sclera anicteric Pupils: Present: PERRL - Neck Neck exam general surgery: Present: supple, trachea midline. Absent: lymphadenopathy - Respiratory Respiratory exam: Present: decreased breath sounds. Absent: accessory muscle use, rales, rhonchi, wheezes - Cardiovascular Cardiovascular exam: Present: RRR, +S1, +S2. Absent: diastolic murmur, gallop, rubs, systolic murmur - GI/Abdominal GI/Abdominal exam: Present: normal bowel sounds, soft, no peritoneal signs. Absent: distended, tenderness - Extremities Exam Extremities exam: Present: warm, radial pulses palpable and symetrical. Absent : calf tenderness, cyanotic, pedal edema - Neurological Exam Neurological exam: Present: CN II-XII intact, normal gait, oriented X3, no focal deficits. Absent: pronater drift, facial droop, speech deficit - Skin Skin exam: Present: dry, intact Internal Medicine: Result - Labs CBC & Chem 7: 05/16/16 04:50 05/16/16 04:50 - ABG Interpretation ABG results: PT/INR, D-dimer PT 12.2 Seconds (9.4-12.1) H 05/15/16 13:35 Consult Discharge Plan - Plan Referrals: Bonita Xavier MD [Primary Care Provider] - 05/23/16 1:45 pm
[2016-05-17] MEDS ORDERED: *HR* Midazolam HCl 5 MG/5 ML VIAL IVP ONE (15:10)
[2016-05-17] MEDS ORDERED: *HR* FentaNYL (PF) 100 MCG/2 ML VIAL ONE (15:10)
[2016-05-17] MEDS ORDERED: Lidocaine Viscous Oral Soln 15 ML SOLUTION ONE ×2 (15:11→15:50)
[2016-05-17] MEDS: *HR* FentaNYL (PF) 100 MCG/2 ML VIAL IVP PRN ×2 (15:48→15:55)
[2016-05-17] MEDS ORDERED: Lidocaine Viscous Oral Soln 15 ML SOLUTION MM ONE (16:06)
[2016-05-17] MEDS ORDERED: *HR* Midazolam HCl 5 MG/5 ML VIAL IVP PRN (16:06)
--- NOTE | 2016-05-17 16:45 | Event Note ---
Date of Encounter: 05/17/16 Time of Encounter: 16:42 Bronchscopy revealed obstructing lesion right upper lobe, extensive mediastinal adneopathy (plus palpable suprclavicular lymph node right ). The pathology is pending nbut suspect non small cell lung cancer stage IIIB. I reviewed results with the family (2 daughters, ). Oncology to be consulted for further evaluation, management. Nothing further to add. [facility] [phone]
--- NOTE | 2016-05-17 17:42 | Electrocardiograph Report ---
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
[2016-05-18] MEDS: MethylPREDNISolone 40 MG/ML VIAL IVP SCH ×2 (01:10→06:52)
[2016-05-18 04:21] LABS: Hematocrit 40.4 % (37.5-50.1); Immature Granulocytes % 0.3 % (0-4); Lymphocytes # 0.6 K/mcL (0.6-4.6); Lymphocytes % 9.4 %; Mean Corpuscular HGB Conc 34.7 g/dL (31.6-35.5); Mean Corpuscular Volume 89.4 fL (83.0-100.0); Mean Platelet Volume 10.1 fL (9.4-12.4); Monocytes # 0.1 K/mcL (0.0-1.3); Monocytes % 2.1 %; Neutrophils # 5.8 K/mcL (1.6-8.9); Platelet Count 257 K/mcL (140-400); Red Blood Count 4.52 M/mcL (4.19-5.50); Red Cell Distribution Width 12.3 % (11.5-14.5); Segmented Neutrophils % 88.2 %
[2016-05-18 04:38] LABS: BUN/Creatinine Ratio 14 (6-26); Blood Urea Nitrogen 11 mg/dL (8-26); Calcium 9.1 mg/dL (8.6-10.8); Carbon Dioxide 22 mEq/L (19-29); Chloride 105 mEq/L (98-109); Glucose 116 mg/dL (70-99); Osmolality,Calculated 288 (280-300); Potassium 4.3 mEq/L (3.5-4.5); Sodium 139 mEq/L (136-145); eGFR For African Americans > 60 (> 60); eGFR For Non-African Americans > 60 (> 60)
[2016-05-18] MEDS: *HR* Heparin 5,000 UNIT/ML VIAL SQ SCH ×2 (06:51→20:32)
--- NOTE | 2016-05-18 09:43 | Internal Med Progress Note ---
Date of Encounter: 05/18/16 Time of Encounter: 09:25 - Assessment and plan (1) Mass of right lung Current Visit: Yes Status: Acute Assessment and plan: Newly diagnosed right lung mass CT scan shows a right suprahilar 6.5 x 4 cm mass with mediastinal and right heel or lymphadenopathy. No pulmonary emboli was evidenced s/p EBUS, with bronchoscopy revealing obstructing lesion RUL, extensive mediastinal adenopathy, pathology is ending, suspicion is high for non-small cell Lung CA stage III B oncology consulted, awaiting review Pulmonology input appreciated (2) Dehydration Current Visit: Yes Status: Acute Assessment and plan: Dehydration secondary to possibly viral gastroenteritis [place] dinesh intake, d/c IVF (3) Elevated troponin Current Visit: Yes Status: Acute Assessment and plan: Likely secondary to demand ischemia (4) Tobacco abuse Current Visit: Yes Status: Acute Assessment and plan: smoking cessation counseling for 5 min . 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, small old infarction in bilateral cingulate gyri (6) Gastroenteritis Current Visit: Yes Status: Resolved Assessment and plan: resolved - Subjective Interval history: 70 Y/O M admitted for management and work up of R lung mass, preliminary biopsy Stage III B NOn-small cell Lung CA, dehydration secondary to gastroenteritis Gastroenteritis has resolved Has no new complains, ambulatory Awaiting Oncology review - Constitutional Vitals: Temp Pulse Resp BP Pulse Ox 98.4 F 88 15 130/68 92 L 05/18/16 07:17 05/18/16 07:17 05/18/16 07:17 05/18/16 07:17 05/18/16 07:17 General appearance: Present: cachectic, cooperative, A&O X 3, pleasant, no acute distress, answers questions appropriately - Head Head exam: Present: atraumatic, normocephalic - Eye Eye exam: Present: PERRL, conjuntiva pink, sclera anicteric Pupils: Present: PERRL - Neck Neck exam general surgery: Present: supple, trachea midline. Absent: lymphadenopathy - Respiratory Respiratory exam: Present: decreased breath sounds - Cardiovascular Cardiovascular exam: Present: RRR, +S1, +S2. Absent: diastolic murmur, gallop, rubs, systolic murmur - GI/Abdominal GI/Abdominal exam: Present: normal bowel sounds, soft, no peritoneal signs. Absent: distended, tenderness - Extremities Exam Extremities exam: Present: warm, radial pulses palpable and symetrical. Absent : calf tenderness, cyanotic, pedal edema - Neurological Exam Neurological exam: Present: CN II-XII intact, oriented X3, no focal deficits. Absent: pronater drift, facial droop, speech deficit - Skin Skin exam: Present: dry, intact Internal Medicine: Result - Labs CBC & Chem 7: 05/18/16 03:44 05/18/16 03:44 Labs: Short CBC 05/18/16 Range/Units 03:44 WBC 6.6 (4.3-11.1) K/mcL Hgb 14.0 (12.9-16.9) g/dL Hct 40.4 (37.5-50.1) % Plt Count 257 (140-400) K/mcL Neutrophils # 5.8 (1.6-8.9) K/mcL BMP 05/18/16 03:44 Sodium 139 Potassium 4.3 Chloride 105 Carbon Dioxide 22 BUN 11 Creatinine 0.77 Glucose 116 H Calcium 9.1 - ABG Interpretation ABG results: PT/INR, D-dimer PT 12.2 Seconds (9.4-12.1) H 05/15/16 13:35 Consult Discharge Plan - Plan Referrals: Bonita Xavier MD [Primary Care Provider] - 05/23/16 1:45 pm
[2016-05-18] MEDS: BuPROPion SR (12 HR) 150 MG TABLET PO SCH ×2 (09:51→20:36)
[2016-05-18] MEDS: Famotidine 20 MG TABLET PO SCH ×2 (09:51→20:36)
[2016-05-18] MEDS ORDERED: Sennosides 8.6 MG TABLET PO PRN (13:01)
[2016-05-18] MEDS: amLODIPine 5 MG TABLET PO SCH (20:37)
[2016-05-19] MEDS: *HR* Heparin 5,000 UNIT/ML VIAL SQ SCH (05:15)
--- NOTE | 2016-05-19 07:55 | Discharge Summary ---
Date of Encounter: 05/19/16 Time of Encounter: 07:54 - Discharge Diagnosis (1) Hypertension Priority: Primary Status: Chronic Qualifiers: Hypertension type: essential hypertension Qualified Code(s): I10 - Essential (primary) hypertension (2) Mass of right lung Priority: Primary Status: Acute (3) Dehydration Priority: Primary Status: Acute (4) Elevated troponin Priority: Primary Status: Acute (5) Tobacco abuse Priority: Secondary Status: Chronic (6) H/O cerebral aneurysm repair Priority: Secondary Status: Chronic (7) Gastroenteritis Priority: Primary Status: Resolved - Discharge Medications Prescriptions: Amlodipine [Norvasc] 5 mg PO DAILY #30 tablet Home Medications: Atorvastatin [Lipitor] 40 mg PO DAILY 12/02/14 [History] Alprazolam [Xanax 0.25 MG Tablet] 0.25 mg PO HS PRN 05/15/16 [History] Amoxicillin/Clavulanate [Augmentin] 875 mg PO BID 05/15/16 [History] BuPROPion SR (12 HR) [Wellbutrin SR] 150 mg PO BID 05/15/16 [History] Docusate [Colace] 100 mg PO DAILY PRN 05/15/16 [History] Amlodipine [Norvasc] 5 mg PO DAILY #30 tablet 05/19/16 [Rx] Allergies/Adverse Reactions: Allergies No Known Allergies Allergy (Verified 11/28/14 20:44) Date of admission: 05/15/16 16:33 Primary care physician: Bonita [facility] Consults: 05/15/16 21:43 Consult to Pulmonology [CONS] Routine Consulting Provider: [facility] Reason for Consult: new right perihilar mass on CT, possible bronch Call Completed: No 05/17/16 11:27 Consult to Diabetes Specialist [CONS] Routine Reason for SW Consult: discharge planning 05/17/16 11:28 Consult to Occupational Therapy [CONS] Routine Comment: Evaluate, develop and implement POC Consult to Physical Therapy [CONS] Routine Comment: Evaluate, develop and implement POC 05/17/16 17:57 Consult to Oncology [CONS] Routine Consulting Provider: Oncology [facility] Reason for Consult: Newly diagnosed Stage IIIb Lung CA Call Completed: No Discharging clinician: Landon Hart Anticipated date of discharge: 05/19/16 - Patient Status Disposition: Home Health Service Condition: Serious - Discharge Instructions Instructions: Pulmonary Nodules (GEN) Follow Up With: Bonita Xavier MD [Primary Care Provider] - 05/23/16 1:45 pm Stephane Sherman MD [Partnered Physician] - - Diet and Activity Activity: resume usual activities as tolerated Diet: low salt diet Interval History: See below Hospital course: Mr. Wilburn is a 70 year old male admitted for work up of R lung mass, gastroenteritis, dehydration secondary to diarrhea, elevated troponin. He has a PMH of cerebral aneurysm repair, HLD, Tobacco abuse,depression, HTN Work up on admission revealed CT scan shows a right suprahilar 6.5 x 4 cm mass with mediastinal and right heel or lymphadenopathy. No pulmonary emboli was evidenced. Adynamic, Troponin elevated at 0.04 with no chest pain or EKG changes Pulmonolgy was consulted, he is s/p EBUS, with bronchoscopy revealing obstructing lesion RUL, extensive mediastinal adenopathy, pathology is ending, suspicion is high for non-small cell Lung CA stage III B Oncology consulted, Dr. Dillard states he will follow up with patient as out- patient after final pathology result Gastroenteritis has resolved Patient seen at bedside with his daughter, he has no new complains Vital signs are stable He is ambulatory, tolerating orally and stable to be discharged home today with follow ups with PCP and Oncology He has been started on amlodipine for blood pressure, other home meds remain the same Counselled for 5 minutes on tobacco cessation, decides to self-quit Immunization is up to date Plan of care discussed with patient and daughter at bedside, verbalized understanding Time spent discussing smoking cessation with patient: 3 to 10 minutes (5 minutes spent education about smoking cesation) - Time Spent with Patient Total time spent providing and/or coordinating discharge services: - Constitutional Vitals: Temp Pulse Resp BP Pulse Ox 98.1 F 94 17 148/90 93 L 05/18/16 23:12 05/18/16 23:12 05/18/16 23:12 05/18/16 23:12 05/18/16 23:12 General appearance: Present: cachectic, cooperative, A&O X 3, pleasant, no acute distress, answers questions appropriately - Head Head exam: Present: atraumatic, normocephalic - Eye Eye exam: Present: PERRL, conjuntiva pink, sclera anicteric Pupils: Present: PERRL - Neck Neck exam general surgery: Present: supple, trachea midline. Absent: lymphadenopathy - Respiratory Respiratory exam: Present: decreased breath sounds - Cardiovascular Cardiovascular exam: Present: RRR, +S1, +S2. Absent: diastolic murmur, gallop, rubs, systolic murmur - GI/Abdominal GI/Abdominal exam: Present: normal bowel sounds, soft, no peritoneal signs. Absent: distended, tenderness - Extremities Exam Extremities exam: Present: warm, radial pulses palpable and symetrical. Absent : calf tenderness, cyanotic, pedal edema - Neurological Exam Neurological exam: Present: CN II-XII intact, oriented X3, no focal deficits. Absent: pronater drift, facial droop, speech deficit - Skin Skin exam: Present: dry, intact
[2016-05-19] MEDS: BuPROPion SR (12 HR) 150 MG TABLET PO SCH (08:24)
[2016-05-19] MEDS: amLODIPine 5 MG TABLET PO SCH (08:24)
[2016-05-19] MEDS: Famotidine 20 MG TABLET PO SCH (08:24)
[2016-05-19 11:37] VITALS: BP 142/87
--- NOTE | 2016-05-19 15:09 | Oncology Inp Consult Note ---
Date of Encounter: 05/18/16 Time of Encounter: 19:00 - Data of Consult Requesting Physician: Landon Hart MD Primary Care Provider: Bonita Mayberry-[facility] - Consult Narrative Reason for consult: Right lung mass History of present illness: Mr. Wilburn is a 70 year old male treated with nausea and vomiting. 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 Otherwise negative CT chest on 05/15/2016 showed right suprahilar mass posteriorly located 6.5 cm craniocaudal by 4 cm. There are some adjoining satellite nodule close to the mass. Left Hilar adenopathy. The mass does constrict the pulmonary artery left side Diffuse thickening left adrenal gland. Also palpable right supraclavicular lymph node Evaluated by pulmonary and had a bronchoscopy biopsy of the mass and biopsy results pending He is fairly asymptomatic with no shortness of breath. His nausea and vomiting did improve after admission and he smoked from before 8 years of age till now. I advised to quit smoking Past Med Surg Social Fam HX - Past Medical History Medical history: hyperlipidemia, hypertension Psychiatric history: depression - Social History Smoking Status: Current every day smoker Packs per day: 0.5 Smokeless Tobacco Status: No Alcohol use: none Drug use: none Medications and Allergies Atorvastatin [Lipitor] 40 mg PO DAILY 12/02/14 [History] Alprazolam [Xanax 0.25 MG Tablet] 0.25 mg PO HS PRN 05/15/16 [History] Amoxicillin/Clavulanate [Augmentin] 875 mg PO BID 05/15/16 [History] BuPROPion SR (12 HR) [Wellbutrin SR] 150 mg PO BID 05/15/16 [History] Docusate [Colace] 100 mg PO DAILY PRN 05/15/16 [History] Amlodipine [Norvasc] 5 mg PO DAILY #30 tablet 05/19/16 [Rx] Allergies No Known Allergies Allergy (Verified 11/28/14 20:44) Review of systems: Nausea vomiting improved. Denied any headache. No neurological deficits Oncology - Exam - Constitutional Vitals: Temp Pulse Resp BP Pulse Ox 97.9 F 104 16 142/87 93 L 05/19/16 11:36 05/19/16 11:36 05/19/16 11:36 05/19/16 11:36 05/19/16 11:36 Exam: GENERAL: Alert and oriented, well appearing. Mental Status: Affect appropriate for circumstances HEENT: Sclerae anicteric. No mucositis or thrush. No other oral or pharyngeal lesions or erythema. Skin: No rashes or petechiae. No evidence of skin malignancy Lymph nodes: No cervical, supraclavicular, axillary, or inguinal adenopathy. Lungs: Air entry mildly decreased on the right side. Cardiovascular: Regular rate and rhythm. No gallops, murmurs, or rubs. Abdomen: Soft, nontender; no organomegaly or masses palpable. Extremities: No edema. No calf swelling or tenderness. No joint deformity. Neurologic: Alert, cranial nerves II-XII intact; normal gait; no focal weakness or sensory abnormalities. Oncology - Results - Impressions Assessment and plan Right lung mass with mediastinal adenopathy palpable right supraclavicular adenopathy at this is concerning for lung cancer small cell versus non-small cell. Briefly looked at his image at the lung conference 05/19/2016. We will await pathology report We will order a PET scan as an outpatient. 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 I am not sure if he would be a candidate for MRI brain because of that Also enlarged left adrenal gland Treatment recommendation after completing staging. Strongly advised to quit smoking May have to start with chemotherapy and consider chemoradiation if feasible Consult Discharge Plan - Plan Instructions: Pulmonary Nodules (GEN) Referrals: Bonita Xavier MD [Primary Care Provider] - 05/23/16 1:45 pm Prescriptions: Amlodipine [Norvasc] 5 mg PO DAILY #30 tablet
--- NOTE | 2016-05-19 15:21 | Physician Discharge Referral ---
Home Health/Hosp Referral Info Transfer to: Home Health Attending Provider: Hailey Provider in Charge Post Discharge: PCP - Diagnosis (1) Hypertension Priority: Secondary Status: Chronic (2) Mass of right lung Priority: Primary Status: Acute (3) Dehydration Priority: Primary Status: Resolved (4) Elevated troponin Priority: Primary Status: Acute (5) Tobacco abuse Priority: Secondary Status: Chronic (6) H/O cerebral aneurysm repair Priority: Secondary Status: Chronic (7) Gastroenteritis Priority: Primary Status: Resolved - Respiratory Orders Smoking Cessation: Smoking cessation has been advised. For more information, call the [place] Tobacco Quit Line at 2-283-MGSD-NOW. - Diet/Nutrition Diet/Nutrition Orders: Cardiac - Activity Activity Orders: Up ad smith - Services Needed Following services are medically necessary services: Home Health Aide - Transfer Medications Prescriptions: Amlodipine [Norvasc] 5 mg PO DAILY #30 tablet Home Medications: Atorvastatin [Lipitor] 40 mg PO DAILY 12/02/14 [History] Alprazolam [Xanax 0.25 MG Tablet] 0.25 mg PO HS PRN 05/15/16 [History] Amoxicillin/Clavulanate [Augmentin] 875 mg PO BID 05/15/16 [History] BuPROPion SR (12 HR) [Wellbutrin SR] 150 mg PO BID 05/15/16 [History] Docusate [Colace] 100 mg PO DAILY PRN 05/15/16 [History] Amlodipine [Norvasc] 5 mg PO DAILY #30 tablet 05/19/16 [Rx] Allergies/Adverse Reactions: Allergies No Known Allergies Allergy (Verified 11/28/14 20:44) Certification: Further, I certify that my clinical findings support that this patient is homebound (i.e. absences from home require considerable and taxing effort and are for medical reasons or christian services or infrequently or short duration when for other reasons) because: Homebound Reason: Leaving home requires considerable and taxing effort due to condition Attestation: My signature below is to certify that this patient is under my care and that I, or nurse practitioner, or a physician's home health assistant working with me, has a face-to -face encounter with this patient.
== END 2016-05-19 12:30 | disposition home health service (06) ==
LOC: EMEROO 11:15 → 3BNU 11:15 → SUATTDRO 16:33 → 3BNU 17:22
PROVIDERS: ADMIT Registered Nurse; ATTEND Internal Medicine

== ENCOUNTER 2016-05-30 10:56 | Inpatient (IN) ==
[2016-05-30] MEDS ORDERED: 0.9 % Sodium Chloride 1,000 ML IVC ONE (11:12)
[2016-05-30] MEDS ORDERED: 0.9 % Sodium Chloride 1,000 ML ONE ×2 (11:16→15:00)
--- NOTE | 2016-05-30 11:18 | Emergency Department Note ---
Disposition Clinical Impression: Acute renal insufficiency, Dehydration, Narrow complex tachycardia Disposition: Admitted As Inpatient Condition: Fair Arrhythmia/Palpitations HPI - General Chief Complaint: ED General Medical Stated Complaint: [facility] center Time Seen by Provider: 05/30/16 11:11 Source: EMS Limitations: no limitations Nursing Notes Reviewed: Yes Vital Signs Reviewed: Yes - History of Present Illness HPI Narrative: 70-year-old male with a history of metastatic lung cancer presents emergency department with a rapid heart rate. He was seen at the cancer center today and was going to start his chemotherapy for the first time. When they checked his heart rate they noticed it was in the 180s and sent him directly to the ER. Patient reports not eating or drinking anything for the last 3-4 days. He denies any chest pain, abdominal pain, nausea or vomiting. He does report some palpitations in his chest. No history of cardiac disease and he has never had an LA. 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 He had vein stripping surgery of his lower extremity many years ago. Denies any new lower extremity swelling or calf pain. No history of DVT/PE. He is not on any anticoagulants. - Related Data Home Medications Medication Instructions Recorded Confirmed Atorvastatin [Lipitor] 40 mg PO DAILY 12/02/14 05/30/16 Alprazolam [Xanax 0.25 MG Tablet] 0.25 mg PO HS PRN 05/15/16 05/30/16 BuPROPion SR (12 HR) [Wellbutrin 150 mg PO BID 05/15/16 05/30/16 SR] Docusate [Colace] 100 mg PO DAILY PRN 05/15/16 05/30/16 Previous Rx's Medication Instructions Recorded Amlodipine [Norvasc] 5 mg PO DAILY #30 tablet 05/19/16 Allopurinol [Zyloprim 300 MG] 300 mg PO DAILY #30 tablet 05/27/16 Lidocaine/Prilocaine CREAM [Emla] 1 appl TP PRN PRN #1 tube 05/27/16 Megestrol Acetate [Megace] 10 ml PO DAILY #300 mls 05/27/16 Omeprazole [PriLOSEC] 20 mg PO DAILY #30 cap 05/27/16 Ondansetron HCl [Zofran] 4 mg PO Q6H PRN #30 tablet 05/27/16 Prochlorperazine Maleate 10 mg PO Q6HR PRN #60 tablet 05/27/16 [Compazine] Allergies Allergy/AdvReac Type Severity Reaction Status Date / Time No Known Allergies Allergy Verified 11/28/14 20:44 All systems ED: reviewed and negative except as stated. Constitutional: Denies: fever Cardiovascular: Reports: palpitations. Denies: chest pain, edema, syncope Respiratory: Denies: cough, dyspnea Gastrointestinal: Denies: abdominal pain, nausea, vomiting Musculoskeletal: Denies: back pain, neck pain Integumentary: Denies: rash Neurological: Denies: headache, weakness, numbness Past Medical History - Past Medical History Medical history: Reports: cancer, CVA, hyperlipidemia, hypertension Psychiatric history: Reports: depression - Social History Smoking Status: Current every day smoker Smokeless Tobacco Status: No Alcohol use: Reports: none Drug use: Reports: none Physical Exam General: Patient is a thin, chronically ill-appearing male but he is awake, talkative and appropriate Cardiovascular: Regular tachycardic. No murmurs, rubs or gallops. No JVD. Respiratory: Breath sounds clear bilaterally. No wheezing, rales or rhonchi. No resp distress Abdomen: Soft, nontender. No guarding, rebound or rigidity. No pulsatile abdominal mass Eyes: Pupils equally round and reactive to light, extraocular muscles intact, conjunctiva clear HENT: Normocephalic, no signs of head injury. No oral mucosal lesions. Moist mucous membranes Neuro: Alert and oriented 3, no motor or sensory deficits Musculoskeletal: There is no redness, swelling, edema, tenderness, asymmetry, pain along the venous system or any other sign of DVT. Skin: No lesions. No diaphoresis. Normal turgor. Normal color Psych: Appropriate - General Limitations: no limitations General appearance: alert Course Course Narrative: Patient presents with a narrow complex tachycardia. On exam he does have P waves and it appears quite regular and our first concern was sinus tachycardia. He was given IV fluids which did not bring down his heart rate down as expected. I spoke with the on-call pit operator, Dr. Rivera who reviewed the EKG and there is some concern for an atypical flutter. We will initiate a Cardizem drip and bolus of tolerated for rate control and to better evaluate the underlying rhythm. His blood pressure has been about 110/75. To be noted, about 200mL of NS infiltrated into the left arm. The IV was restarted in the right arm with good flow. 1455: Cardizem drip was started, blood pressure was adequate, but rate remailed elevated. Dr. Ramsey, hospitalist at bedside and verbally ordered a 10 mg Cardizem bolus. Rate paradoxically increased and BP dropped. While hospitalist was at bedside he was deemed unstable possible SVT versus flutter and under his direct supervision synchronized cardioversion was performed. Pads were placed, charged to 100 J and patient was cardioverted. Prior to the cardioversion he was given 2 mg of IV Ativan. After cardioversion his rate became irregular and in the 80s. Patient's symptoms began resolving and he was feeling much better. After the cardioversion patient's rate has remained in the 80s and 90s. His blood pressure has been holding around 110 systolic. He did become restless and confused which at this time I feel is due to the Ativan administration. He has no focal weakness. Vital Signs Temperature 97.2 F L 05/30/16 10:58 Pulse Rate 184 05/30/16 10:58 Respiratory Rate 26 05/30/16 10:58 Blood Pressure 117/93 05/30/16 10:58 O2 Sat by Pulse Oximetry 98 05/30/16 10:58 Temperature 97.5 F L 05/30/16 16:30 Pulse Rate 86 05/30/16 16:30 Respiratory Rate 18 05/30/16 16:30 Blood Pressure 96/79 05/30/16 16:30 O2 Sat by Pulse Oximetry 100 05/30/16 16:30 Oxygen Delivery Oxygen Delivery Nasal Cannula Arrhythmia/Palpitations - Lab Data Result diagrams: 05/30/16 12:07 05/30/16 12:07 Lab Results 05/30/16 05/30/16 05/30/16 Range/Units 12:07 12:07 12:07 WBC 11.9 H (4.3-11.1) K/mcL RBC 5.08 (4.19-5.50) M/mcL Hgb 15.6 (12.9-16.9) g/dL Hct 45.6 (37.5-50.1) % MCV 89.8 (83.0-100.0) fL MCH 30.7 (28.0-33.3) pg MCHC 34.2 (31.6-35.5) g/dL RDW 12.9 (11.5-14.5) % Plt Count 260 (140-400) K/mcL MPV 10.1 (9.4-12.4) fL Immature Gran % 0.8 (0-4) % Seg Neutrophils % 82.9 % Lymphocytes % 11.9 % Monocytes % 4.0 % Eosinophils % 0.2 % Basophils % 0.2 % Neutrophils # 9.9 H (1.6-8.9) K/mcL Lymphocytes # 1.4 (0.6-4.6) K/mcL Monocytes # 0.5 (0.0-1.3) K/mcL Eosinophils # 0.0 (0.0-0.6) K/mcL Basophils # 0.0 (0.0-0.2) K/mcL PT 12.6 H (9.4-12.1) Seconds INR 1.2 APTT 25.5 L (26.0-36.0) Seconds Sodium (136-145) mEq/L Potassium (3.5-4.5) mEq/L Chloride (98-109) mEq/L Carbon Dioxide (19-29) mEq/L BUN (8-26) mg/dL Creatinine (0.72-1.25) mg/dL Est GFR ( Amer) (> 60) Est GFR (Non-Af Amer) (> 60) BUN/Creatinine Ratio (6-26) Glucose (70-99) mg/dL Calculated Osmolality (280-300) Lactic Acid (0.5-2.2) mmol/L Calcium (8.6-10.8) mg/dL Magnesium (1.6-2.6) mg/dL Troponin I (0-0.03) ng/mL B-Natriuretic Peptide 137 H (0-100) pg/mL 05/30/16 05/30/16 05/30/16 Range/Units 12:07 12:07 12:07 WBC (4.3-11.1) K/mcL RBC (4.19-5.50) M/mcL Hgb (12.9-16.9) g/dL Hct (37.5-50.1) % MCV (83.0-100.0) fL MCH (28.0-33.3) pg MCHC (31.6-35.5) g/dL RDW (11.5-14.5) % Plt Count (140-400) K/mcL MPV (9.4-12.4) fL Immature Gran % (0-4) % Seg Neutrophils % % Lymphocytes % % Monocytes % % Eosinophils % % Basophils % % Neutrophils # (1.6-8.9) K/mcL Lymphocytes # (0.6-4.6) K/mcL Monocytes # (0.0-1.3) K/mcL Eosinophils # (0.0-0.6) K/mcL Basophils # (0.0-0.2) K/mcL PT (9.4-12.1) Seconds INR APTT (26.0-36.0) Seconds Sodium 138 (136-145) mEq/L Potassium 4.4 (3.5-4.5) mEq/L Chloride 98 (98-109) mEq/L Carbon Dioxide 21 (19-29) mEq/L BUN 56 H (8-26) mg/dL Creatinine 1.28 H (0.72-1.25) mg/dL Est GFR ( Amer) > 60 (> 60) Est GFR (Non-Af Amer) 55 L (> 60) BUN/Creatinine Ratio 44 H (6-26) Glucose 79 (70-99) mg/dL Calculated Osmolality 300 (280-300) Lactic Acid (0.5-2.2) mmol/L Calcium 9.4 (8.6-10.8) mg/dL Magnesium 2.2 (1.6-2.6) mg/dL Troponin I 0.03 (0-0.03) ng/mL B-Natriuretic Peptide (0-100) pg/mL 05/30/16 Range/Units 13:19 WBC (4.3-11.1) K/mcL RBC (4.19-5.50) M/mcL Hgb (12.9-16.9) g/dL Hct (37.5-50.1) % MCV (83.0-100.0) fL MCH (28.0-33.3) pg MCHC (31.6-35.5) g/dL RDW (11.5-14.5) % Plt Count (140-400) K/mcL MPV (9.4-12.4) fL Immature Gran % (0-4) % Seg Neutrophils % % Lymphocytes % % Monocytes % % Eosinophils % % Basophils % % Neutrophils # (1.6-8.9) K/mcL Lymphocytes # (0.6-4.6) K/mcL Monocytes # (0.0-1.3) K/mcL Eosinophils # (0.0-0.6) K/mcL Basophils # (0.0-0.2) K/mcL PT (9.4-12.1) Seconds INR APTT (26.0-36.0) Seconds Sodium (136-145) mEq/L Potassium (3.5-4.5) mEq/L Chloride (98-109) mEq/L Carbon Dioxide (19-29) mEq/L BUN (8-26) mg/dL Creatinine (0.72-1.25) mg/dL Est GFR ( Amer) (> 60) Est GFR (Non-Af Amer) (> 60) BUN/Creatinine Ratio (6-26) Glucose (70-99) mg/dL Calculated Osmolality (280-300) Lactic Acid 2.3 H (0.5-2.2) mmol/L Calcium (8.6-10.8) mg/dL Magnesium (1.6-2.6) mg/dL Troponin I (0-0.03) ng/mL B-Natriuretic Peptide (0-100) pg/mL Critical Care Time Critical Care Time: Yes Total Critical Care Time: 35 Attestation: Critical care time 35 minutes exclusive of any procedures. Attestation Statement - Attestation Attestation: Patient was seen with resident physician. I reviewed the history, physical, assessment and plan, and agree with the findings. I also personally evaluated this patient and had [id number] time with this patient. 70-year-old male presents to the emergency room with rapid heart rate and hypotension. Patient was seen over the cancer center he has metastatic lung cancer was supposed to start chemotherapy today, but he was too sick to begin treatment. Patient states that his heart rate has been going very fast and he attributes this to not having eaten or had anything to drink that is significant in the last 3-4 days. He denies fevers or chills, he does have a continuous cough. No significant chest pain or shortness of breath. On examination ENT is unremarkable heart tachycardic with a regular rhythm. Lungs crackles throughout. Abdomen is soft and nontender extremities there is no peripheral edema. We will do workup for both cardiac and for blood pressure, unclear if this is a sinus tach or A. fib. Seems to have P waves on EKG the machine read it as atrial fibrillation. We will start with IV hydration and see how that impacts his rate and blood pressure. Fluids unfortunately had minimal impact. Labs are essentially unremarkable. Cardiology was called to discuss the case as was the hospitalist service. Cardiology was also unsure what the specific problem was in terms of the EKG whether was a atypical A flutter or in A. fib. Suggested trying Cardizem. This was attempted unfortunately made the patient somewhat hypotensive and unstable. Hospitalist service was at the bedside at this time and they were uncomfortable taking patient to the floor with the decreased blood pressure and still had elevated heart rate. At that point Ativan was administered and the patient received a synchronized cardioversion which returned his rate into the 80s. Eventually improving his blood pressure as well. Patient was then given amiodarone to try and keep his rate under control. Hemodynamically he was improved at that point though still in fair condition. Will admit patient for further evaluation and treatment. Critical care time 35 minutes of this patient. I agree with resident physician assessment point.
[2016-05-30 12:14] LABS: Hematocrit 45.6 % (37.5-50.1); Hemoglobin 15.6 g/dL (12.9-16.9); Immature Granulocytes % 0.8 % (0-4); Lymphocytes % 11.9 %; Mean Corpuscular HGB Conc 34.2 g/dL (31.6-35.5); Mean Corpuscular Hemoglobin 30.7 pg (28.0-33.3); Mean Corpuscular Volume 89.8 fL (83.0-100.0); Mean Platelet Volume 10.1 fL (9.4-12.4); Platelet Count 260 K/mcL (140-400); Red Blood Count 5.08 M/mcL (4.19-5.50); Red Cell Distribution Width 12.9 % (11.5-14.5); Segmented Neutrophils % 82.9 %
[2016-05-30 12:15] LABS: Basophils % 0.2 %; Eosinophils % 0.2 %; Lymphocytes # 1.4 K/mcL (0.6-4.6); Monocytes # 0.5 K/mcL (0.0-1.3); Neutrophils # 9.9 K/mcL (1.6-8.9)
[2016-05-30 12:20] LABS: INR 1.2; Prothrombin Time 12.6 Seconds (9.4-12.1)
[2016-05-30 12:22] LABS: Activated Partial Thrombo Time 25.5 Seconds (26.0-36.0)
[2016-05-30] MEDS ORDERED: 0.9 % Sodium Chloride 500 ML IV ONE ×2 (12:22→12:48)
[2016-05-30 12:26] LABS: BUN/Creatinine Ratio 44 (6-26); Blood Urea Nitrogen 56 mg/dL (8-26); Calcium 9.4 mg/dL (8.6-10.8); Carbon Dioxide 21 mEq/L (19-29); Chloride 98 mEq/L (98-109); Glucose 79 mg/dL (70-99); Osmolality,Calculated 300 (280-300); Potassium 4.4 mEq/L (3.5-4.5); Sodium 138 mEq/L (136-145); eGFR For African Americans > 60 (> 60); eGFR For Non-African Americans 55 (> 60)
[2016-05-30] MEDS ORDERED: *HR* Metoprolol 5 MG/5 ML VIAL IVP SCH (12:30)
[2016-05-30] MEDS ORDERED: Amiodarone Premix 150 MG/100 ML BAG IVPB ONE (14:43)
[2016-05-30] MEDS ORDERED: *HR* LORazepam 2 MG/ML VIAL ONE (14:49)
[2016-05-30] MEDS ORDERED: *HR* LORazepam 2 MG/ML VIAL IVP ONE ×2 (15:01→15:24)
--- NOTE | 2016-05-30 15:13 | Cardiology Consult Note ---
Date of Encounter: 05/30/16 Time of Encounter: 15:00 Assessment and Plan (1) Small cell carcinoma of right lung Current Visit: No Status: Chronic Per Cardiology: Recent diagnosis of non-small cell lung cancer stage IIIB with a 6 x 4 cm suprahilar lung mass on CT recently. Presented today to oncology for first round of chemotherapy treatment, however postponed due to a flutter with RVR. Suspect contribute factor to atrial flutter with RVR. Recommend addressed long- term CODE STATUS during hospital stay. (2) Atrial flutter with rapid ventricular response Current Visit: Yes Status: Acute Per Cardiology: Presented with atypical A flutter with RVR in the 180s. IV Cardizem drip started by primary service with subsequent hypotension. Patient seen status post synchronized DC cardioversion 1 with one shock 100 J with successful conversion to sinus rhythm. Amiodarone drip initiated. Patient denies any past history of A. fib. Potassium stable. Recommend check magnesium and TSH. Troponin negative 1. Regarding long-term anticoagulation, recent diagnosis of lung cancer with initial chemotherapy treatment awaiting. Has hx of CVA with reported brain aneursym clipping-- will attempt to obtain medical records. Will need to address prison AC, but suspect will not be an ideal candidate. Patient and family evaluating code status, currently full code. (3) Dehydration Current Visit: Yes Status: Acute Per Cardiology: Suspected d/t poor PO intake recently. On IVF per primary team. (4) Hypotension Current Visit: No Status: Acute Per Cardiology: Suspect in relation to dehydration and flutter with RVR. Continue to monitor. Anticipate will improve with conversion to sinus rhythm and IV fluids. Qualifiers: Hypotension type: unspecified hypotension type Qualified Code(s): I95.9 - Hypotension, unspecified (5) Acute renal insufficiency Current Visit: Yes Status: Acute Per Cardiology: Mild HAN. Suspect relation to dehydration. Continue to monitor closely. Management per primary service. Discussion w patient/family: The assessment and plan as outlined above was discussed with the patient and/or family members who expressed understanding and agreement. All questions were answered. Thank you for involving us in the care of your patient. Please call with any questions. Discussed and reviewed with Dr. Rivera. History of Present Illness Consult date: 05/30/16 Requesting physician: Charbel Ramsey Consult reason: Aflutter RVR Chief complaint: Rapid HR in Cancer center History of present illness: Mr. Wilburn is a 70 year old male with a relevant past medical history of nicotine abuse, GERD, hyperlipidemia, CVA October 2014, reported brain aneurysm clipping around time of CVA, recent diagnosis of lung cancer with scheduled first round of chemotherapy today. Patient seen today in the ER status post fibrillation with 100 J for symptomatically atypical A flutter with RVR and hypotension. Patient denies any chest pain. Has expressed decreased appetite with decreased food and by mouth liquid intake over the past few days. Denies any known past history of A. fib. Denies any current active bleeding or blood loss. Denies any recent falls. Discussed with and daughter at this point patient prefers to be a full code. Denies any known history of CAD. Past Med Surg Social Fam HX - Past Medical History Attestation: Yes The following information was validated with the patient. Source: patient, old records reviewed, obtained from family Medical history: cancer (Recent diagnosis of lung cancer), CVA (Family reports aneurysm clipping), hyperlipidemia, hypertension Psychiatric history: depression - Social History Smoking Status: Current every day smoker Packs per day: About one pack per day for 30 years Smokeless Tobacco Status: No Alcohol use: none Drug use: none Medications and Allergies Atorvastatin [Lipitor] 40 mg PO DAILY 12/02/14 [History] Alprazolam [Xanax 0.25 MG Tablet] 0.25 mg PO HS PRN 05/15/16 [History] BuPROPion SR (12 HR) [Wellbutrin SR] 150 mg PO BID 05/15/16 [History] Docusate [Colace] 100 mg PO DAILY PRN 05/15/16 [History] Amlodipine [Norvasc] 5 mg PO DAILY #30 tablet 05/19/16 [Rx] Allopurinol [Zyloprim 300 MG] 300 mg PO DAILY #30 tablet 05/27/16 [Rx] Lidocaine/Prilocaine CREAM [Emla] 1 appl TP PRN PRN #1 tube 05/27/16 [Rx] Megestrol Acetate [Megace] 10 ml PO DAILY #300 mls 05/27/16 [Rx] Omeprazole [PriLOSEC] 20 mg PO DAILY #30 cap 05/27/16 [Rx] Ondansetron HCl [Zofran] 4 mg PO Q6H PRN #30 tablet 05/27/16 [Rx] Prochlorperazine Maleate [Compazine] 10 mg PO Q6HR PRN #60 tablet 05/27/16 [Rx] Allergies No Known Allergies Allergy (Verified 11/28/14 20:44) All Systems Review: A 10-system review of systems was performed and is negative for pertinent findings except as documented above in the HPI. - Constitutional Constitutional: fatigue, weakness - Cardiovascular Cardiovascular: as per HPI, rapid heart rate - Gastrointestinal Gastrointestinal: other (Decreased appetite) Physical Examination Vital Signs, Last 4 Hours Pulse Resp BP Pulse Ox 05/30/16 14:59 84 20 120/50 99 General: Conversant HEENT: Atraumatic, Normocephaly Cardiac: Reg Rate and Rhythm, Normal S1 and S2, No Murmur Lungs: Other (Diminished anteriorly) Neuro: Alert and responsive, No focal deficits noted Skin: No rashes noted on visualized skin, Other (Pale in appearance) Musculoskeletal: No Chest Wall Tenderness Extremities: No Edema Results 05/30/16 12:07 05/30/16 12:07 Laboratory Tests 05/18/16 05/30/16 05/30/16 03:44 12:07 12:07 INR 1.2 Creatinine 0.77 Est GFR (Non-Af Amer) > 60 Troponin I B-Natriuretic Peptide 137 H 05/30/16 05/30/16 12:07 12:07 INR Creatinine 1.28 H Est GFR (Non-Af Amer) 55 L Troponin I 0.03 B-Natriuretic Peptide ITS Impressions Chest X-Ray 05/30/16 11:12 IMPRESSION: Stable chest, with right hilar and peritracheal soft tissue prominence related to underlying metastatic lymphadenopathy, and similar appearing lung parenchyma with known lung cancer. No acute infiltrate. D/ / Luis Daniel Bermudez MD / Luis Daniel Bermudez MD Interpreting Provider: Luis Daniel Bermudez MD Active Medications Diltiazem HCl 125 mg/ Dextrose 125 mls @ 5 mls/hr IVC .Q24H MICHEL PRN Reason: 5 MG/HR Stop: 11/29/16 14:01 Last Infusion: 05/30/16 14:43 Dose: 0 mg/hr, 0 mls/hr Lorazepam (Ativan) 1 mg IVP ONCE ONE Stop: 05/30/16 15:25 Metoprolol Tartrate (Lopressor) 2.5 mg IVP Q5MIN MICHEL Stop: 06/01/16 12:31 Last Admin: 05/30/16 12:51 Dose: 2.5 mg Morphine Sulfate (Morphine Sulfate) 2 mg IVP ONCE ONE Stop: 05/30/16 15:26 - Imaging and Cardiology Chest Xray: report reviewed - EKG Interpretation EKG results cardiology: personally reviewed (atypical aflutter 180's), other (s/ p synchronized DC cardioversion with 100J-- now sinus rhythm in the 80s on tele and ECG) Consult Discharge Plan - Plan Referrals: Bonita Xavier MD [Primary Care Provider] -
[2016-05-30] MEDS ORDERED: Ondansetron 4 MG/2 ML VIAL IVP ONE (15:25)
[2016-05-30] MEDS ORDERED: *HR* Morphine 2 MG/ML SYRINGE IVP ONE (15:25)
[2016-05-30] MEDS ORDERED: Ondansetron 4 MG/2 ML VIAL ONE (15:28)
[2016-05-30] MEDS ORDERED: *HR* Morphine 2 MG/ML SYRINGE ONE (15:28)
[2016-05-30] MEDS ORDERED: Amiodarone Premix 360 MG/200 ML BAG IVC ONE (16:22)
[2016-05-30] MEDS ORDERED: Ondansetron ODT 4 MG TAB.RAPDIS PO PRN (16:23)
[2016-05-30] MEDS ORDERED: Naloxone 0.4 MG/ML INJ IVP PRN (16:27)
[2016-05-30] MEDS ORDERED: Acetaminophen 325 MG TABLET PO PRN (16:27)
[2016-05-30] MEDS ORDERED: Ondansetron 4 MG/2 ML VIAL IVP PRN (16:27)
[2016-05-30] MEDS ORDERED: *HR* Morphine 2 MG/ML SYRINGE IVP PRN (16:27)
[2016-05-30] MEDS: 0.9 % Sodium Chloride 1,000 ML IVC SCH (17:17)
--- NOTE | 2016-05-30 17:19 | Internal Med History&Physical ---
Date of Encounter: 05/30/16 Time of Encounter: 14:30 Internal Medicine - H&P: HPI Chief complaint: Referred fron [facility] with hypotension and TACHYCARDIA Admitted From: Emergency Dept Plans for Post Hospital Care: Home History of present illness: Mr. Wilburn is a 70 year old male with medical history significant for recently diagnosed metastatic lung cancer was referred from the [facility] with unrecordable blood pressure and tachycardia. In the ED, he was found in atrial flutter with RVR, he received low dose Motoprolol, and later cardizem bolus which did not reduce the rate, he became hemodynamically unstable and required emergency cardioversion. Sinus rhythm was achieved with 100J synchronized current. He was evaluated at the [facility] TODAY FOR CHEMOTHERAPY EDUCATION. He is a poor historian. The family reports he was diagnosed of lung cancer 2 weeks ago. He had not been feeling well in the past weeks, he failed out-patient treatment for respitatory tract infection/pneumonia. It was work-up for this that lead to the diagnosis of lung cancer. He reports he has been lethargic. Family report he has not been eating or drinking for nearly 1 week. He report a poor appetite. He reoorts palpitation and nausea at the time of my interview. In fact, he had becme uncomfortable, requesting I take of his belt and pair of trousers. I discontinued Cardizem drip as he had become hypotensive and called for the crash cart, sedated him and charged and administered 100J of synchronized current, achieving sinus rhythm. He remained borderlinee hypotensive for a while but quickly achieved normotension with IVF bolus. He denies any chest pain, abdominal pain, nausea or vomiting. He does report some palpitations in his chest. No history of CAD/NV. 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 He denies lower extremity swelling or pain or cramps. He had venous stripping. no history of DVT /pe. He denies fever, change in cough pattern and productiveness. No diarrhea or constipation. No new onset neurological symptoms. He reports dizziness now. No new -onset focal neuological changes. He rports his urine is darker than usal and agrees to reduced urine output. Family report he is FULL CODE, he does not want to be maintained in prolonged vegetative state. His is his NOK/ POA. She was at his bedside ROS: A 10-point ROS was performed, positives and relevnat negatives are detailed , system-symptom not mentioned are assumed negative unless otherwise stated. Family Hx: Father: myelofibrosis, [id number]-[id number] HIV, mother: DM2, BOTHER AND SISTERS: DM2, brother: lung cancer, daughter: HTN, depression, irregular heart beat. son: atrial fibrillation, depression. Vital Signs Temperature 97.2 F L 05/30/16 10:58 Pulse Rate 184 05/30/16 10:58 Respiratory Rate 26 05/30/16 10:58 Blood Pressure 117/93 05/30/16 10:58 O2 Sat by Pulse Oximetry 98 05/30/16 10:58 Temperature 97.5 F L 05/30/16 16:30 Pulse Rate 86 05/30/16 16:30 Respiratory Rate 18 05/30/16 16:30 Blood Pressure 96/79 05/30/16 16:30 O2 Sat by Pulse Oximetry 100 05/30/16 16:30 He is in distress, he is ill or toxic looking. he lethargic. Diaphoretic, very uncomfortable Not pale, anicteric, afebrile, acyanotic. Moist mucosa, HEENT: No JVD, no cervical lymphadenopathy, no JVD Chest : CTAB, reduced air entry in the lung bases. Heart: Tachycardia (180-200) on telemetry, , HS1/2, no m/r/g. Abdomen: soft, non-tender, no guarding, no rebound, no masses, BS+ : no suprapubic tenderness QUALITY CONTROL MICROBIOLOGIST: AAO x 3, no focal neurological deficits. Skin: No active skin lesion Extremities: No pedal edema, normal pedal pulses, no calf tenderness. Lab Results 05/30/16 05/30/16 05/30/16 Range/Units 12:07 12:07 12:07 WBC 11.9 H (4.3-11.1) K/mcL RBC 5.08 (4.19-5.50) M/mcL Hgb 15.6 (12.9-16.9) g/dL Hct 45.6 (37.5-50.1) % MCV 89.8 (83.0-100.0) fL MCH 30.7 (28.0-33.3) pg MCHC 34.2 (31.6-35.5) g/dL RDW 12.9 (11.5-14.5) % Plt Count 260 (140-400) K/mcL MPV 10.1 (9.4-12.4) fL Immature Gran % 0.8 (0-4) % Seg Neutrophils % 82.9 % Lymphocytes % 11.9 % Monocytes % 4.0 % Eosinophils % 0.2 % Basophils % 0.2 % Neutrophils # 9.9 H (1.6-8.9) K/mcL Lymphocytes # 1.4 (0.6-4.6) K/mcL Monocytes # 0.5 (0.0-1.3) K/mcL Eosinophils # 0.0 (0.0-0.6) K/mcL Basophils # 0.0 (0.0-0.2) K/mcL PT 12.6 H (9.4-12.1) Seconds INR 1.2 APTT 25.5 L (26.0-36.0) Seconds Sodium (136-145) mEq/L Potassium (3.5-4.5) mEq/L Chloride (98-109) mEq/L Carbon Dioxide (19-29) mEq/L BUN (8-26) mg/dL Creatinine (0.72-1.25) mg/dL Est GFR ( Amer) (> 60) Est GFR (Non-Af Amer) (> 60) BUN/Creatinine Ratio (6-26) Glucose (70-99) mg/dL Calculated Osmolality (280-300) Lactic Acid (0.5-2.2) mmol/L Calcium (8.6-10.8) mg/dL Magnesium (1.6-2.6) mg/dL Troponin I (0-0.03) ng/mL B-Natriuretic Peptide 137 H (0-100) pg/mL 05/30/16 05/30/16 05/30/16 Range/Units 12:07 12:07 12:07 WBC (4.3-11.1) K/mcL RBC (4.19-5.50) M/mcL Hgb (12.9-16.9) g/dL Hct (37.5-50.1) % MCV (83.0-100.0) fL MCH (28.0-33.3) pg MCHC (31.6-35.5) g/dL RDW (11.5-14.5) % Plt Count (140-400) K/mcL MPV (9.4-12.4) fL Immature Gran % (0-4) % Seg Neutrophils % % Lymphocytes % % Monocytes % % Eosinophils % % Basophils % % Neutrophils # (1.6-8.9) K/mcL Lymphocytes # (0.6-4.6) K/mcL Monocytes # (0.0-1.3) K/mcL Eosinophils # (0.0-0.6) K/mcL Basophils # (0.0-0.2) K/mcL PT (9.4-12.1) Seconds INR APTT (26.0-36.0) Seconds Sodium 138 (136-145) mEq/L Potassium 4.4 (3.5-4.5) mEq/L Chloride 98 (98-109) mEq/L Carbon Dioxide 21 (19-29) mEq/L BUN 56 H (8-26) mg/dL Creatinine 1.28 H (0.72-1.25) mg/dL Est GFR ( Amer) > 60 (> 60) Est GFR (Non-Af Amer) 55 L (> 60) BUN/Creatinine Ratio 44 H (6-26) Glucose 79 (70-99) mg/dL Calculated Osmolality 300 (280-300) Lactic Acid (0.5-2.2) mmol/L Calcium 9.4 (8.6-10.8) mg/dL Magnesium 2.2 (1.6-2.6) mg/dL Troponin I 0.03 (0-0.03) ng/mL B-Natriuretic Peptide (0-100) pg/mL 05/30/16 Range/Units 13:19 WBC (4.3-11.1) K/mcL RBC (4.19-5.50) M/mcL Hgb (12.9-16.9) g/dL Hct (37.5-50.1) % MCV (83.0-100.0) fL MCH (28.0-33.3) pg MCHC (31.6-35.5) g/dL RDW (11.5-14.5) % Plt Count (140-400) K/mcL MPV (9.4-12.4) fL Immature Gran % (0-4) % Seg Neutrophils % % Lymphocytes % % Monocytes % % Eosinophils % % Basophils % % Neutrophils # (1.6-8.9) K/mcL Lymphocytes # (0.6-4.6) K/mcL Monocytes # (0.0-1.3) K/mcL Eosinophils # (0.0-0.6) K/mcL Basophils # (0.0-0.2) K/mcL PT (9.4-12.1) Seconds INR APTT (26.0-36.0) Seconds Sodium (136-145) mEq/L Potassium (3.5-4.5) mEq/L Chloride (98-109) mEq/L Carbon Dioxide (19-29) mEq/L BUN (8-26) mg/dL Creatinine (0.72-1.25) mg/dL Est GFR ( Amer) (> 60) Est GFR (Non-Af Amer) (> 60) BUN/Creatinine Ratio (6-26) Glucose (70-99) mg/dL Calculated Osmolality (280-300) Lactic Acid 2.3 H (0.5-2.2) mmol/L Calcium (8.6-10.8) mg/dL Magnesium (1.6-2.6) mg/dL Troponin I (0-0.03) ng/mL B-Natriuretic Peptide (0-100) pg/mL EKG: Atrial flutter with RVR (184) CXR: Stable findings, lno new infiltrates, right upper lobe mass, soft tissue mediastinal disease suggestive of lymphadenopathy, consistent with metastatic lung cancer. CTA chest of April 2016 demonstrated metastatic lung disease, no pulmonary embolism. IM Hemodynamically unstable atrial flutter with RVR. Atrial flutter likely related to lung cancer, CTA did not show pulmonary embolism in April 2016. I cannot not exclude new embolism, but it is less likely. Hypotension Dehydration Acute renal injury Lactic acidosis related to tissue hypoperfusion and or cancer Metastatic lung cancer, non-small cell lung cancer stage IIIB Chronic morbidities HTN HLD CVA s/p coiling of cerebral aneurysm PLAN Admit Consult cardiology Continue IV amiodarone drip for now, anticipate short term use, due to risk of pulmonary toxicity, in the setting of back-ground COPD/lung cancer. Defere to cardiology to decide on anti-arrythmic agent when the acute phase is over. IVF Hold Lisinopril Monitor and correct electrolyte. Keep potassium>4 and magnesium .2, Obtain TSH Lovenox 30mg SC BID Continue essential medications of chronic morbidities Obtain urinalysis. Consult palliative care I discussed my assessment with the patient, his family was at bedside, they verbalized understanding and are agreeable to admission. I will discuss code status with the family again. Consult palliative care. He is high risk due to new-onset of symptomatic arrythmia, dehydration for poor oral intake and acute renal injury. Past Med Surg Social Fam HX - Past Medical History Medical history: cancer, CVA, hyperlipidemia, hypertension Psychiatric history: depression - Social History Smoking Status: Current every day smoker Packs per day: About one pack per day for 30 years Smokeless Tobacco Status: No Alcohol use: none Drug use: none Internal Medicine - H&P: Meds Atorvastatin [Lipitor] 40 mg PO DAILY 12/02/14 [History] Alprazolam [Xanax 0.25 MG Tablet] 0.25 mg PO HS PRN 05/15/16 [History] BuPROPion SR (12 HR) [Wellbutrin SR] 150 mg PO BID 05/15/16 [History] Docusate [Colace] 100 mg PO DAILY PRN 05/15/16 [History] Amlodipine [Norvasc] 5 mg PO DAILY #30 tablet 05/19/16 [Rx] Allopurinol [Zyloprim 300 MG] 300 mg PO DAILY #30 tablet 05/27/16 [Rx] Lidocaine/Prilocaine CREAM [Emla] 1 appl TP PRN PRN #1 tube 05/27/16 [Rx] Megestrol Acetate [Megace] 10 ml PO DAILY #300 mls 05/27/16 [Rx] Omeprazole [PriLOSEC] 20 mg PO DAILY #30 cap 05/27/16 [Rx] Ondansetron HCl [Zofran] 4 mg PO Q6H PRN #30 tablet 05/27/16 [Rx] Prochlorperazine Maleate [Compazine] 10 mg PO Q6HR PRN #60 tablet 05/27/16 [Rx] Allergies No Known Allergies Allergy (Verified 11/28/14 20:44) All Systems PM: A 10-system review of systems was performed and is negative for pertinent findings except as documented above in the HPI. - Constitutional Vitals: Temp Pulse Resp BP Pulse Ox 97.5 F L 87 18 96/79 100 05/30/16 16:30 05/30/16 16:53 05/30/16 16:30 05/30/16 16:30 05/30/16 16:30 Internal Med - H&P Results - Labs CBC & Chem 7: 05/30/16 12:07 05/30/16 12:07
[2016-05-30 18:44] LABS: Thyroid Stimulating Hormone 1.097 mcIU/mL (0.350-4.840)
[2016-05-30] MEDS: Famotidine 20 MG TABLET PO SCH (21:13)
[2016-05-30] MEDS: BuPROPion SR (12 HR) 150 MG TABLET PO SCH (21:13)
[2016-05-30] MEDS: *HR* Enoxaparin 40 MG/0.4 ML SYRINGE SQ SCH (21:41)
[2016-05-30] MEDS: Amiodarone Premix 360 MG/200 ML BAG IVC SCH (23:31)
--- NOTE | 2016-05-31 03:58 | Electrocardiograph Report ---
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
[2016-05-31] MEDS: 0.9 % Sodium Chloride 1,000 ML IVC SCH ×2 (06:02→17:31)
[2016-05-31 08:14] LABS: Basophils % 0.1 %; Eosinophils % 0.2 %; Lymphocytes # 1.2 K/mcL (0.6-4.6); Lymphocytes % 9.2 %; Mean Corpuscular HGB Conc 34.1 g/dL (31.6-35.5); Mean Corpuscular Volume 90.9 fL (83.0-100.0); Mean Platelet Volume 10.7 fL (9.4-12.4); Monocytes # 0.7 K/mcL (0.0-1.3); Monocytes % 5.1 %; Neutrophils # 10.7 K/mcL (1.6-8.9); Platelet Count 219 K/mcL (140-400); Red Blood Count 4.07 M/mcL (4.19-5.50); Red Cell Distribution Width 13.1 % (11.5-14.5); Segmented Neutrophils % 84.4 %
[2016-05-31 08:16] LABS: Hemoglobin 12.6 g/dL (12.9-16.9)
--- NOTE | 2016-05-31 08:26 | Cardiology Progress Note ---
Date of Encounter: 05/31/16 Time of Encounter: 08:30 Assessment and Plan (1) Small cell carcinoma of right lung Current Visit: No Status: Chronic Per Cardiology: Recent diagnosis of non-small cell lung cancer stage IIIB with a 6 x 4 cm suprahilar lung mass on CT recently. Presented yesterday to oncology for first round of chemotherapy treatment, however postponed due to a flutter with RVR. Suspect contributing factor to atrial flutter with RVR. Recommend addressed long -term CODE STATUS during hospital stay. (2) Atrial flutter with rapid ventricular response Current Visit: Yes Status: Acute Per Cardiology: Patient denies any past history of A. fib. Presented with atypical A flutter with RVR in the 180s. IV Cardizem drip started by primary service with subsequent hypotension-- s/p synchronized DC cardioversion 1 with one shock 100 J with successful conversion to sinus rhythm. On Amiodarone gtt. Telemetry reviewed with average heart rate 86 and remains sinus rhythm since cardioversion. Magnesium and TSH stable. We'll add Cardizem 30 mg by mouth every 6 hours. Assuming blood pressure tolerate will convert to long-acting. Will DC IV Amio gtt today once load completed. Regarding long-term anticoagulation, recent diagnosis of lung cancer with initial chemotherapy treatment awaiting. Has hx of CVA with reported brain aneursym clipping-- will attempt to obtain medical records. Discussed and reviewed with Dr. Rivera, and aspirin only for anticoagulation due to history of aneurysm clipping. (3) Dehydration Current Visit: Yes Status: Acute Per Cardiology: Suspected d/t poor PO intake recently. Management per primary service. (4) Hypotension Current Visit: No Status: Acute Per Cardiology: Suspect in relation to dehydration and flutter with RVR. Improved with systolic blood pressure 110s to 120s. We'll monitor closely with addition of Cardizem 30 mg by mouth every 6 hours.. Qualifiers: Hypotension type: unspecified hypotension type Qualified Code(s): I95.9 - Hypotension, unspecified (5) Acute renal insufficiency Current Visit: Yes Status: Acute Per Cardiology: Mild HAN. Suspect relation to dehydration. Continue to monitor closely. Management per primary service. (6) Elevated troponin I measurement Current Visit: Yes Status: Acute Per Cardiology: Initial troponin negative, mild troponin elevation of 0.04 in setting of a flutter with RVR, dehydration, hypotension, and mild HAN. Chest pain-free. Suspect demand ischemia. No cardiac rehabilitation consult warranted. Can consider echo if any changes, but upon discussion with family he is set to undergo palliative chemo and was reportedly given a prognosis of 6 months. Palliative care consult pending. Discussion w patient/family: The assessment and plan as outlined above was discussed with the patient and/or family members who expressed understanding and agreement. All questions were answered. Thank you for involving us in the care of your patient. Please call with any questions. Discussed and reviewed with Dr. Rivera. Subjective Principal diagnosis: Aflutter with RVR Interval history: Patient reports he feels better this morning. Denies any further palpitations. He reports is short of breath has improved. He denies any chest pain. Objective Vital Signs, Last 4 Hours Temp Pulse Resp BP Pulse Ox 05/31/16 07:18 98.1 F 84 14 129/82 94 L General: Conversant HEENT: Atraumatic, Normocephaly Cardiac: Reg Rate and Rhythm, Normal S1 and S2, No Murmur Lungs: Other (diminished breath sounds throughout, slightly labored at rest) Neuro: Alert and responsive, No focal deficits noted Extremities: No Edema Results 05/31/16 05:42 05/31/16 09:03 Lab Results Laboratory Tests 05/30/16 05/30/16 05/30/16 12:07 12:07 12:07 Magnesium 2.2 Troponin I 0.03 TSH 1.097 05/31/16 05:42 Magnesium Troponin I 0.04 H* TSH ITS Impressions Chest X-Ray 05/30/16 11:12 IMPRESSION: Stable chest, with right hilar and peritracheal soft tissue prominence related to underlying metastatic lymphadenopathy, and similar appearing lung parenchyma with known lung cancer. No acute infiltrate. D/ / Luis Daniel Bermudez MD / Luis Daniel Bermudez MD Interpreting Provider: Luis Daniel Bermudez MD Active Medications Acetaminophen (Tylenol) 650 mg PO Q6HR PRN PRN Reason: Mild Pain (1-3) Stop: 11/29/16 16:28 Acetaminophen/Hydrocodone Bitart (Roe 5-325 Mg) 1 tab PO Q4HR PRN PRN Reason: Moderate Pain (4-6) Stop: 11/29/16 16:28 Allopurinol (Zyloprim) 300 mg PO DAILY [facility] Stop: 11/30/16 09:01 Alprazolam (Xanax) 0.25 mg PO HS PRN; Protocol PRN Reason: Anxiety Stop: 11/29/16 16:24 Atorvastatin Calcium (Lipitor) 40 mg PO DAILY [facility] Stop: 11/30/16 09:01 Bupropion HCl (Wellbutrin Sr) 150 mg PO BID [facility] Stop: 11/29/16 21:01 Last Admin: 05/30/16 21:13 Dose: Not Given Docusate Sodium (Colace) 100 mg PO DAILY PRN; Protocol PRN Reason: Constipation Stop: 11/29/16 16:24 Enoxaparin Sodium (Lovenox) 30 mg SQ BID MICHEL PRN Reason: Protocol Stop: 11/29/16 21:01 Last Admin: 05/30/16 21:41 Dose: 30 mg Famotidine (Pepcid) 20 mg PO BID [facility] Stop: 11/29/16 21:01 Last Admin: 05/30/16 21:13 Dose: Not Given Amiodarone HCl/Dextrose (Amiodarone 360mg/200ml Drip Premix) 360 mg in 200 mls @ 16.667 mls/hr IVC CONT MICHEL PRN Reason: 0.5 MG/MIN Stop: 11/29/16 16:31 Last Admin: 05/30/16 23:31 Dose: 0.5 mg/min, 16.667 mls/hr Sodium Chloride (0.9 % Sodium Chloride) 1,000 mls @ 75 mls/hr IVC .[id number] [facility] Stop: 11/29/16 16:31 Last Admin: 05/31/16 06:02 Dose: 75 mls/hr Lidocaine/Prilocaine (Emla) 1 gm TP AD PRN PRN Reason: Pain Stop: 11/29/16 16:24 Megestrol Acetate (Megace) 10 mg PO DAILY MICHEL PRN Reason: Protocol Stop: 11/30/16 09:01 Morphine Sulfate (Morphine Sulfate) 2 mg IVP Q4HR PRN PRN Reason: Severe Pain (7-10) Stop: 11/29/16 16:28 Naloxone HCl (Narcan) 0.4 mg IVP Q2MIN PRN PRN Reason: Opioid Reversal Stop: 11/29/16 16:28 Omeprazole (Prilosec) 20 mg PO DAILY MICHEL PRN Reason: Protocol Stop: 11/30/16 09:01 Ondansetron HCl (Zofran Odt) 4 mg PO Q6H PRN PRN Reason: Nausea Ondansetron HCl (Zofran) 4 mg IVP Q8HR PRN PRN Reason: Nausea And Vomiting Stop: 11/29/16 16:28 Prochlorperazine Maleate (Compazine) 10 mg PO Q6HR PRN PRN Reason: Nausea Stop: 11/29/16 16:24 - Imaging and Cardiology Chest Xray: report reviewed - EKG Interpretation EKG results cardiology: other (24-hour telemetry reviewed with average heart rate 86, remains sinus rhythm) Consult Discharge Plan - Plan Referrals: Bonita Xavier MD [Primary Care Provider] -
[2016-05-31] MEDS: Famotidine 20 MG TABLET PO SCH (08:29)
[2016-05-31] MEDS: *HR* Enoxaparin 40 MG/0.4 ML SYRINGE SQ SCH (08:30)
[2016-05-31] MEDS: Megestrol Acetate 400 MG/10 ML UDC PO SCH (08:32)
[2016-05-31] MEDS: BuPROPion SR (12 HR) 150 MG TABLET PO SCH ×2 (09:05→20:38)
[2016-05-31] MEDS: Aspirin 81 MG TAB.CHEW PO SCH (09:06)
[2016-05-31 09:30] LABS: BUN/Creatinine Ratio 36 (6-26); Calcium 8.1 mg/dL (8.6-10.8); Carbon Dioxide 24 mEq/L (19-29); Chloride 106 mEq/L (98-109); Glucose 103 mg/dL (70-99); Magnesium 1.6 mg/dL (1.6-2.6); Osmolality,Calculated 300 (280-300); Phosphorous 2.8 mg/dL (2.3-4.7); Potassium 4.5 mEq/L (3.5-4.5); Sodium 140 mEq/L (136-145); eGFR For African Americans > 60 (> 60); eGFR For Non-African Americans > 60 (> 60)
[2016-05-31 09:32] LABS: Blood Urea Nitrogen 39 mg/dL (8-26)
[2016-05-31] MEDS: Amiodarone Premix 360 MG/200 ML BAG IVC SCH (09:55)
[2016-05-31 10:29] LABS: Bilirubin,Urine Small (Negative); Blood,Urine Negative (Negative); Clarity,Urine Clear (Clear); Color,Urine Yellow (Yellow); Glucose,Urine (UA) Normal (Normal); Ketones,Urine Trace mg/dL (Negative); Leukocyte Esterase,Urine Negative (Negative); Nitrite,Urine Negative (Negative); Protein,Urine 30 mg/dL (Neg-Trace); Urobilinogen,Urine Normal (Normal)
[2016-05-31 10:30] LABS: Bacteria,Urine None Seen per hpf (None-Few); Hyaline Casts,Urine None Seen per lpf (None-Few); Squamous Epithelial Cell,Urine Many per lpf (None-Few); WBC,Urine 0-3 per hpf (0-3)
--- NOTE | 2016-05-31 12:26 | Electrocardiograph Report ---
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
[2016-05-31] MEDS: *HR* HYDROcodone/Acet 5/325 mg TABLET PO PRN ×2 (13:10→20:38)
--- NOTE | 2016-05-31 13:28 | Palliative - Consult Note ---
Date of Encounter: 05/31/16 Time of Encounter: 12:50 - Assessment and Plan (1) Cancer associated pain Current Visit: Yes Status: Acute Assessment and plan: Mr. Wilburn complains of bilateral shoulder pain rated as an 8/10. The pain is described as a deep ache without radiation. He has not used pain medications on a regular basis. Encouraged use of pain medications while in the hospital. Will continue to follow. (2) Constipation by delayed colonic transit Current Visit: Yes Status: Acute Assessment and plan: Mr. Wilburn reports chronic constipation at home with his last BM being 05/29/16. He typically uses colace at night to assist with symptoms. Will continue to follow. (3) Goals of care, counseling/discussion Current Visit: Yes Status: Acute Assessment and plan: Plan for family meeting with Mr. Wilburn, his , and 2 daughters tomorrow () at 11:00. Topics of discussion include discharge planning and goals of care. Discussed meeting topics with Mr. Wilburn's daughter-Abby- so that she may prepare questions for conversation. (4) Atrial flutter with rapid ventricular response Current Visit: Yes Status: Acute Assessment and plan: Cardiology following. 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 Palliative-CN HPI - Data of Consult Patient: new to practice Consult date: 05/31/16 Requesting Physician: Eleanor Guevara MD Primary Care Provider: Bonita Mayberry-[facility] - Consult Narrative Palliative Care/Comfort Measures: Palliative care Reason for consult: Goals of care History of present illness: Mr. Wilburn is a 70 year old male admitted to [facility] from the [facility]. Mr. Wilburn was diagnosed with small cell lung cancer after a recent admission for difficulty breathing. He was at the cancer center receiveing chemotherapy education when he could no longer tolerate his symptoms. Mr. Wilburn reports feeling "bad", and symptoms included palpitations, weakness/fatigue, and dizziness. He was transferred to the emergency department for further work-up and treatment. Mr. Wilburn was found to be in atrial flutter. Initial treatments included medications, but his condition became increasingly more symptomatic and he was cardioverted. Mr. Wilburn was admitted to the hospital for further work-up and review. Cardiology was consulted. Palliative care was consulted to assist with goals of care planning. Mr. Wilburn lives at home and is the primary caregiver of his spouse. He does not have home health of oxygen requirements. Mr. Wilburn has a heavy smoking history and continues to smoke despite his recent diagnosis. He has a strong spiritual background and has been receiving regular visits from his primary Chamfering Machine Operator. 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 He finds manpreet in playing and attending to his pets. CC: Eleanor Guevara MD Past Med Surg Social Fam HX - Past Medical History Medical history: cancer, CVA, hyperlipidemia, hypertension Psychiatric history: depression - Social History Smoking Status: Current every day smoker Packs per day: About one pack per day for 30 years Smokeless Tobacco Status: No Alcohol use: none Drug use: none Medications and Allergies Atorvastatin [Lipitor] 40 mg PO DAILY 12/02/14 [History] Alprazolam [Xanax 0.25 MG Tablet] 0.25 mg PO HS PRN 05/15/16 [History] BuPROPion SR (12 HR) [Wellbutrin SR] 150 mg PO BID 05/15/16 [History] Docusate [Colace] 100 mg PO DAILY PRN 05/15/16 [History] Amlodipine [Norvasc] 5 mg PO DAILY #30 tablet 05/19/16 [Rx] Allopurinol [Zyloprim 300 MG] 300 mg PO DAILY #30 tablet 05/27/16 [Rx] Lidocaine/Prilocaine CREAM [Emla] 1 appl TP PRN PRN #1 tube 05/27/16 [Rx] Megestrol Acetate [Megace] 10 ml PO DAILY #300 mls 05/27/16 [Rx] Omeprazole [PriLOSEC] 20 mg PO DAILY #30 cap 05/27/16 [Rx] Ondansetron HCl [Zofran] 4 mg PO Q6H PRN #30 tablet 05/27/16 [Rx] Prochlorperazine Maleate [Compazine] 10 mg PO Q6HR PRN #60 tablet 05/27/16 [Rx] Allergies No Known Allergies Allergy (Verified 11/28/14 20:44) - Constitutional Constitutional ROS PAL: decreased appetite, fatigue, weight loss - EENT Eyes: no change in vision Ears: no decreased hearing Ears, nose, mouth, throat: no dysphagia, no mouth pain, no sore throat - Cardiovascular Cardiovascular ROS: dyspnea on exertion (breathing is at baseline), palpitations , no chest pain, no chest pain with activity, no pedal edema - Respiratory Respiratory: cough, dyspnea on exertion (baseline) - Gastrointestinal Gastrointestinal: constipation (chronic), no abdominal pain, no diarrhea, no nausea, no vomiting - Genitourinary Genitourinary ROS male: no difficulty urinating, no dysuria - Musculoskeletal Musculoskeletal ROS IM: arthralgias (bilateral shoulder pain) - Integumentary ROS Integumentary: no sores, no wounds - Neurological Neurological ROS: confusion, weakness (global), no focal weakness, no numbness - Psychiatric Psychiatric general PM: change in appetite Palliative Care-Exam - Constitutional Vitals: Temp Pulse Resp BP Pulse Ox 98.1 F 84 16 124/71 94 L 05/31/16 11:28 05/31/16 12:18 05/31/16 11:28 05/31/16 11:28 05/31/16 11:28 General appearance: Present: cooperative, thin Exam: 70 year old male appearing chronically ill. Alert and oriented, appears fatigued. - Head Head Exam: Present: atraumatic - Eye Eye exam: Present: EOMI Pupils: Present: PERRL - ENT ENT exam: Present: mucous membranes dry - Respiratory Respiratory exam: Present: decreased breath sounds (shallow). Absent: accessory muscle use, respiratory distress, rhonchi, wheezes - Cardiovascular Cardiovascular exam: Present: RRR. Absent: systolic murmur, tachycardia - GI/Abdominal Exam GI/Abdominal exam: Present: normal bowel sounds, soft. Absent: guarding, tenderness - Rectal Rectal Exam: Present: deferred - Neurological Exam Neurological exam: Present: alert, no focal deficits, strengths equal and symetr throughout (global weakness) - Skin Skin exam: Present: dry, warm Internal Medicine - CN: Reslt - Labs CBC & Chem 7: 05/31/16 05:42 05/31/16 09:03 Labs: Short CBC 05/31/16 Range/Units 05:42 WBC 12.6 H (4.3-11.1) K/mcL Hgb 12.6 L D (12.9-16.9) g/dL Hct 37.0 L (37.5-50.1) % Plt Count 219 (140-400) K/mcL Neutrophils # 10.7 H (1.6-8.9) K/mcL BMP 05/31/16 09:03 Sodium 140 Potassium 4.5 Chloride 106 Carbon Dioxide 24 BUN 39 H D Creatinine 1.09 Glucose 103 H Calcium 8.1 L Cardiac Enzymes 05/31/16 Range/Units 05:42 Troponin I 0.04 H* (0-0.03) ng/mL Urine 05/31/16 Range/Units 10:07 Urine Color Yellow (Yellow) Urine Clarity Clear (Clear) Urine pH 6.0 (5.0-8.0) pH Units Ur Specific [place] 1.030 H (1.010-1.025) Urine Protein 30 H (Neg-Trace) mg/dL Urine Glucose (UA) Normal (Normal) mg/dL - ABG Interpretation ABG results: PT/INR, D-dimer PT 12.6 Seconds (9.4-12.1) H 05/30/16 12:07 Consult Discharge Plan - Plan Referrals: Bonita Xavier MD [Primary Care Provider] - Palliative Quality Palliative Quality: Screen for Code Status: No (will address 06/01/16 in family meeting), Screen for Goals of Care: Yes, Screen for Pain: Yes, If Pain Regimen Started, Initiate Bowel Regimen: Yes, Screen for Nausea/Vomitting: Yes
--- NOTE | 2016-05-31 14:03 | Internal Med Progress Note ---
Date of Encounter: 05/31/16 Time of Encounter: 13:00 - Subjective Interval history: Patient seen and examined with daughter present at bedside. Patient resting comfortably in bed and states he feels a lot better compared to yesterday. States he does not have palpitations or chest pain at this time. As per daughter, patient's mental status waxes and wanes. At this time patient is AAO 3. Patient denies any shortness of breath or discomfort at this time. Assessment/Plan: 1. Atrial Flutter with RVR S/P synchronized cardioversion in the ER Currently rate controlled and in NSR Discontinued Amiodarone drip and started Cardizem 120mg PO QD Patient not a candidate for technician terminal and repeater anticoagulation given history of intracranial hemorrhage secondary to aneurysm Cardiology consultation appreciated 2. Leukocytosis Likely reactive given the cardioversion from previous day No clinical signs of infectious eitiology present CXR negative for infiltrates, UA negative, Afebrile Will monitor off antibiotics at this time 3. Elevated TNI Likely secondary to aflutter No chest pain reported at this time will trend TNI continue ASA, Lipitor 4. Metastatic Lung cancer, non small cell lung cancer stage III Palliative care consultation requested in regards to goals of care and intermediate treatment plan/Code status 5. Hypertension Noted to be hypotensive in the ER, resolved at this time BP within acceptable range off antihypertensive medications Will continue to closely monitor BP 6. HLD continue home medications 7. DVT ppx Heparin SQ - Constitutional Vitals: Temp Pulse Resp BP Pulse Ox 98.1 F 84 16 124/71 94 L 05/31/16 11:28 05/31/16 12:18 05/31/16 11:28 05/31/16 11:28 05/31/16 11:28 General appearance: Present: A&O X 3 (Weak, frail), no acute distress, underweight, answers questions appropriately - Head Head exam: Present: atraumatic, normocephalic - Respiratory Respiratory exam: Present: CTAB. Absent: respiratory distress, wheezes - Cardiovascular Cardiovascular exam: Present: RRR, +S1, +S2 - GI/Abdominal GI/Abdominal exam: Present: normal bowel sounds, soft. Absent: distended, tenderness - Extremities Exam Extremities exam: Present: warm, radial pulses palpable and symetrical. Absent : calf tenderness, cyanotic, pedal edema - Neurological Exam Neurological exam: Present: alert, oriented X3 - Psychiatric Psychiatric exam: Present: normal affect, normal mood Internal Medicine: Result - Labs CBC & Chem 7: 05/31/16 05:42 05/31/16 09:03 Labs: Short CBC 05/31/16 Range/Units 05:42 WBC 12.6 H (4.3-11.1) K/mcL Hgb 12.6 L D (12.9-16.9) g/dL Hct 37.0 L (37.5-50.1) % Plt Count 219 (140-400) K/mcL Neutrophils # 10.7 H (1.6-8.9) K/mcL BMP 05/31/16 09:03 Sodium 140 Potassium 4.5 Chloride 106 Carbon Dioxide 24 BUN 39 H D Creatinine 1.09 Glucose 103 H Calcium 8.1 L Cardiac Enzymes 05/31/16 Range/Units 05:42 Troponin I 0.04 H* (0-0.03) ng/mL Urine 05/31/16 Range/Units 10:07 Urine Color Yellow (Yellow) Urine Clarity Clear (Clear) Urine pH 6.0 (5.0-8.0) pH Units Ur Specific [place] 1.030 H (1.010-1.025) Urine Protein 30 H (Neg-Trace) mg/dL Urine Glucose (UA) Normal (Normal) mg/dL - ABG Interpretation ABG results: PT/INR, D-dimer PT 12.6 Seconds (9.4-12.1) H 05/30/16 12:07 Consult Discharge Plan - Plan Referrals: Bonita Xavier MD [Primary Care Provider] -
--- NOTE | 2016-05-31 15:08 | Event Note ---
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 Heart rate remains in the 80s and systolic blood pressure 120s. Palliative care involved with patient. Per discussion Dr. Rivera, cardiology signoff, reconsult as needed.
[2016-05-31] MEDS: *HR* Heparin 5,000 UNIT/ML VIAL SQ SCH (17:30)
[2016-06-01] MEDS: *HR* HYDROcodone/Acet 5/325 mg TABLET PO PRN ×2 (04:21→21:23)
[2016-06-01] MEDS: *HR* Heparin 5,000 UNIT/ML VIAL SQ SCH ×2 (05:18→18:06)
[2016-06-01 05:36] LABS: Basophils % 0.2 %; Eosinophils % 0.4 %; Hematocrit 35.4 % (37.5-50.1); Hemoglobin 12.2 g/dL (12.9-16.9); Immature Granulocytes % 0.6 % (0-4); Lymphocytes % 11.4 %; Mean Corpuscular HGB Conc 34.5 g/dL (31.6-35.5); Mean Corpuscular Hemoglobin 31.4 pg (28.0-33.3); Mean Corpuscular Volume 91.2 fL (83.0-100.0); Mean Platelet Volume 10.4 fL (9.4-12.4); Monocytes # 0.5 K/mcL (0.0-1.3); Neutrophils # 7.5 K/mcL (1.6-8.9); Platelet Count 184 K/mcL (140-400); Red Blood Count 3.88 M/mcL (4.19-5.50); Red Cell Distribution Width 13.2 % (11.5-14.5); Segmented Neutrophils % 82.4 %
[2016-06-01 06:00] LABS: BUN/Creatinine Ratio 31 (6-26); Calcium 7.6 mg/dL (8.6-10.8); Carbon Dioxide 22 mEq/L (19-29); Chloride 109 mEq/L (98-109); Glucose 62 mg/dL (70-99); Magnesium 1.6 mg/dL (1.6-2.6); Osmolality,Calculated 290 (280-300); Phosphorous 2.1 mg/dL (2.3-4.7); Potassium 3.5 mEq/L (3.5-4.5); Sodium 139 mEq/L (136-145); eGFR For African Americans > 60 (> 60); eGFR For Non-African Americans > 60 (> 60)
[2016-06-01 06:04] LABS: Blood Urea Nitrogen 24 mg/dL (8-26)
[2016-06-01] MEDS ORDERED: *HR* Dextrose 50 % in Water (Syg) 50 ML SYRINGE IVP ONE (06:42)
[2016-06-01] MEDS ORDERED: *HR* Dextrose 50 % in Water (Syg) 50 ML SYRINGE ONE (06:44)
[2016-06-01] MEDS: Megestrol Acetate 400 MG/10 ML UDC PO SCH (08:44)
[2016-06-01] MEDS: 0.9 % Sodium Chloride 1,000 ML IVC SCH ×2 (08:45→21:33)
[2016-06-01] MEDS: Famotidine 20 MG TABLET PO SCH (08:46)
[2016-06-01] MEDS: Aspirin 81 MG TAB.CHEW PO SCH (08:47)
[2016-06-01] MEDS: BuPROPion SR (12 HR) 150 MG TABLET PO SCH ×2 (08:47→21:23)
--- NOTE | 2016-06-01 11:44 | Internal Med Progress Note ---
Date of Encounter: 06/01/16 Time of Encounter: 10:30 - Subjective Interval history: Patient seen and examined at bedside. Patient resting comfortably in bed and states he feels a lot better compared to yesterday. Denies any discomfort at this time. Patient and family is to have a palliative care/social insurance adviser meeting at 11 to discuss goals of care and CODE STATUS. Assessment/Plan: 1. 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 Leukocytosis Resolved Likely reactive given the cardioversion 3. Elevated TNI Likely secondary to aflutter No chest pain reported at this time will trend TNI continue ASA, Lipitor 4. Metastatic Lung cancer, non small cell lung cancer stage III Palliative care consultation requested in regards to goals of care and mcc treatment plan/Code status As per oncology, patient is to get chemo port placed in am (06/02/16) 5. Hypertension BP within acceptable range even while being off antihypertensive medications Will continue to closely monitor BP restart home antihypertensive medications as needed 6. HLD continue home medications 7. DVT ppx Heparin SQ 8. Electrolyte abnormality Hypokalemia and hypophosphatemia Potassium and phosphorus supplemented Continue to monitor electrolytes and replace as needed - Constitutional Vitals: Temp Pulse Resp BP Pulse Ox 97.9 F 89 18 137/84 97 06/01/16 11:06 06/01/16 11:06 06/01/16 11:06 06/01/16 11:06 06/01/16 11:06 General appearance: Present: A&O X 3 (Weak), no acute distress, underweight, answers questions appropriately - Head Head exam: Present: atraumatic, normocephalic - Eye Eye exam: Present: normal appearance, conjuntiva pink, sclera anicteric - Respiratory Respiratory exam: Present: CTAB. Absent: accessory muscle use, rales, rhonchi, wheezes - Cardiovascular Cardiovascular exam: Present: RRR, +S1, +S2 - GI/Abdominal GI/Abdominal exam: Present: normal bowel sounds, soft. Absent: distended, tenderness - Extremities Exam Extremities exam: Present: warm, radial pulses palpable and symetrical. Absent : calf tenderness, pedal edema - Neurological Exam Neurological exam: Present: alert, oriented X3 Internal Medicine: Result - Labs CBC & Chem 7: 06/01/16 05:20 06/01/16 05:20 Labs: Short CBC 06/01/16 Range/Units 05:20 WBC 9.1 (4.3-11.1) K/mcL Hgb 12.2 L (12.9-16.9) g/dL Hct 35.4 L (37.5-50.1) % Plt Count 184 (140-400) K/mcL Neutrophils # 7.5 (1.6-8.9) K/mcL BMP 06/01/16 05:20 Sodium 139 Potassium 3.5 D Chloride 109 Carbon Dioxide 22 BUN 24 D Creatinine 0.78 Glucose 62 L Calcium 7.6 L Cardiac Enzymes 05/31/16 Range/Units 14:07 Troponin I 0.04 H* (0-0.03) ng/mL - ABG Interpretation ABG results: PT/INR, D-dimer PT 12.6 Seconds (9.4-12.1) H 05/30/16 12:07 - Impressions Impressions Brain MRI 05/31/16 16:48 IMPRESSION: Old hemorrhagic products along the falx anteriorly and posteriorly as well as within the corpus callosum. There is a additionally encephalomalacia within the posteromedial aspect of the left frontal lobe. 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 Anterior cerebral artery aneurysm coiling. Moderate chronic microvascular disease within the periventricular white matter. No evidence of acute intracranial abnormality. No abnormal enhancement to suggest intracranial metastatic disease. D/ / 05/31/2016 19:52:02 Jt Epps MD [facility] Inter[facility] Provider: Jt Epps MD Consult Discharge Plan - Plan Referrals: Bonita Xavier MD [Primary Care Provider] -
[2016-06-01] MEDS ORDERED: MOM Conc 10 ML UD.LIQ PO PRN (12:10)
--- NOTE | 2016-06-01 13:18 | Palliative Progress Note ---
Date of Encounter: 06/01/16 Time of Encounter: 11:00 - Assessment and plan (1) Goals of care, counseling/discussion Current Visit: Yes Status: Acute Assessment and plan: Conducted family meeting with Anna, daughters Abby and Rosy. Ta Helton SS and Rich Helton, Motorcycle Builder. Patient alert and oriented and agrees to having conversation. Patient brought in copies of living will and DPOA. Forms copied and placed in file to be added to EMR. Reviewed directives and agree to documented desires. Discussion related to Code Status. Follow-up on yesterdays discussions. Explained code status definitions to daughter Rosy as she was not present at yesterdays discussion. Patient verbalized understanding of code definitions and desires to remain full code for now. Patient meets qualifications for rehab per P&T and desires to go to [facility] or [facility]. Patient reports feeling weak and desires to get back on his feet. Patient is scheduled for aport insertion for tomorrow. Provided education on disease process related to palliative chemo. Family and patient verbalize understanding. (2) Cancer associated pain Current Visit: No Status: Acute Assessment and plan: Patient currently denies pain or discomfort. Currently taking [place]. Requested 3 doses in past 24 hrs. Also has morphine PRN but did not request any in past 24hrs. (3) Nutrient intake below expected requirement Current Visit: Yes Status: Acute Assessment and plan: Patient reports not feeling hungry and no desire to consume food. Recent weight loss and only consumed 10% breakfast, 5% lunch, dinner 10% dinner in past 24hrs. Megace started on 05/31/16. Discussed desire for possible insertion of PEG tube to facilitate supplemental eating. Patient unsure about his desire for this if need ever arises. I did discuss this as the patient has failed to thrive over past month. Dietary consult pending. (4) Constipation by delayed colonic transit Current Visit: No Status: Acute Assessment and plan: Patient with poor po intake. Current regimen includes Colace and Senna. No BM to date. Abdomen soft and reports passing flatus. (5) Tobacco abuse Current Visit: No Status: Chronic Assessment and plan: Patient on Xanax and Wellbutrin for control. Denies desire for nicotine patch. - Time Spent With Patient Total time spent is greater than 50% in coordination of care (as documented) at patient's floor/unit and/or counseling patient: - Subjective Interval history: Patient sitting up in chair. Alert and oriented x 3. Denies complaints of pain but reports feeling weak. Family at bedside. Chart reviewed and family meeting conducted. - Constitutional Vitals: Abnormal lab results RBC 3.88 M/mcL (4.19-5.50) L 06/01/16 05:20 Hgb 12.2 g/dL (12.9-16.9) L 06/01/16 05:20 Hct 35.4 % (37.5-50.1) L 06/01/16 05:20 PT 12.6 Seconds (9.4-12.1) H 05/30/16 12:07 APTT 25.5 Seconds (26.0-36.0) L 05/30/16 12:07 BUN/Creatinine Ratio 31 (6-26) H 06/01/16 05:20 Glucose 62 mg/dL (70-99) L 06/01/16 05:20 Calcium 7.6 mg/dL (8.6-10.8) L 06/01/16 05:20 Phosphorus 2.1 mg/dL (2.3-4.7) L 06/01/16 05:20 Troponin I 0.04 ng/mL (0-0.03) H* 05/31/16 14:07 B-Natriuretic Peptide 137 pg/mL (0-100) H 05/30/16 12:07 Prealbumin 9.0 mg/dL (18.0-45.0) L 06/01/16 05:20 Ur Specific [place] 1.030 (1.010-1.025) H 05/31/16 10:07 Urine Protein 30 mg/dL (Neg-Trace) H 05/31/16 10:07 Urine Ketones Trace mg/dL (Negative) H 05/31/16 10:07 Urine Bilirubin Small (Negative) H 05/31/16 10:07 Urine Microscopic RBC 3-5 per hpf (0-3) H 05/31/16 10:07 Ur Squamous Epith Cells Many per lpf (None-Few) H 05/31/16 10:07 - Head Head exam: Present: atraumatic, normal inspection, normocephalic - Eye Eye exam: Present: PERRL Pupils: Present: PERRL - ENT ENT exam: Present: mucous membranes moist - Neck Neck exam: Present: full ROM - Respiratory Respiratory exam: Present: CTAB - Cardiovascular Cardiovascular exam: Present: RRR (NSR om telemetry), +S1, +S2 - Expanded Cardiovascular Exam Peripheral pulses: 1+: Femoral (L) PM, Femoral (R) PM, Posterior Tibialis (L), Posterior Tibialis (R), 2+: Carotid (L) PM, Carotid (R) PM, Radial (L), Radial ( R), Dorsalis Pedis (L) PM, Dorsalis Pedis (R) PM - GI/Abdominal GI/Abdominal exam: Present: normal bowel sounds, soft (reports no appetite) - Rectal Rectal exam: Present: deferred - Extremities Exam Extremities exam: Present: full ROM (general weakness) - Expanded Lower Extremity Exam Hip exam: Present: full ROM Upper Leg exam: Present: full ROM Knee exam: Present: full ROM Lower leg exam: Present: full ROM Ankle exam: Present: full ROM - Back Exam Back exam: Present: full ROM - Neurological Exam Neurological exam: Present: alert, CN II-XII intact, oriented X3 - Psychiatric Psychiatric exam: Present: normal affect - Skin Skin exam: Present: pallor, warm Palliative Quality Palliative Quality: Screen for Code Status: Yes, Screen for Goals of Care: Yes, Screen for Pain: Yes, If Pain Regimen Started, Initiate Bowel Regimen: Yes, Screen for Nausea/Vomitting: Yes - Labs CBC & Chem 7: 06/01/16 05:20 06/01/16 05:20 Labs: Laboratory Results - last 24 hr 05/31/16 06/01/16 06/01/16 14:07 05:20 05:20 WBC 9.1 RBC 3.88 L Hgb 12.2 L Hct 35.4 L MCV 91.2 MCH 31.4 MCHC 34.5 RDW 13.2 Plt Count 184 MPV 10.4 Immature Gran % 0.6 Seg Neutrophils % 82.4 Lymphocytes % 11.4 Monocytes % 5.0 Eosinophils % 0.4 Basophils % 0.2 Neutrophils # 7.5 Lymphocytes # 1.0 Monocytes # 0.5 Eosinophils # 0.0 Basophils # 0.0 Sodium 139 Potassium 3.5 D Chloride 109 Carbon Dioxide 22 BUN 24 D Creatinine 0.78 Est GFR ( Amer) > 60 Est GFR (Non-Af Amer) > 60 BUN/Creatinine Ratio 31 H Glucose 62 L Calculated Osmolality 290 Calcium 7.6 L Phosphorus 2.1 L Magnesium 1.6 Troponin I 0.04 H* Prealbumin 06/01/16 05:20 WBC RBC Hgb Hct MCV MCH MCHC RDW Plt Count MPV Immature Gran % Seg Neutrophils % Lymphocytes % Monocytes % Eosinophils % Basophils % Neutrophils # Lymphocytes # Monocytes # Eosinophils # Basophils # Sodium Potassium Chloride Carbon Dioxide BUN Creatinine Est GFR ( Amer) Est GFR (Non-Af Amer) BUN/Creatinine Ratio Glucose Calculated Osmolality Calcium Phosphorus Magnesium Troponin I Prealbumin 9.0 L - Impressions Impressions Brain MRI 05/31/16 16:48 IMPRESSION: Old hemorrhagic products along the falx anteriorly and posteriorly as well as within the corpus callosum. There is a additionally encephalomalacia within the posteromedial aspect of the left frontal lobe. 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 Anterior cerebral artery aneurysm coiling. Moderate chronic microvascular disease within the periventricular white matter. No evidence of acute intracranial abnormality. No abnormal enhancement to suggest intracranial metastatic disease. D/ / 05/31/2016 19:52:02 Jt Epps MD / [facility] Interpreting Provider: Jt Epps MD - ABG Interpretation ABG results: PT/INR, D-dimer PT 12.6 Seconds (9.4-12.1) H 05/30/16 12:07 Consult Discharge Plan - Plan Referrals: Bonita Xavier MD [Primary Care Provider] -
[2016-06-01] MEDS: Sennosides/Docusate Sodium TABLET PO SCH (21:23)
[2016-06-01] MEDS ORDERED: Furosemide 40 MG/4 ML VIAL IVP ONE (23:09)
[2016-06-01] MEDS: ALPRAZolam 0.25 MG TABLET PO PRN (23:37)
[2016-06-01] MEDS: methylPREDNISolone 125 MG/2 ML VIAL IVP SCH (23:37)
[2016-06-02] MEDS: Ipratropium/Albuterol Neb 3 ML IH SCH ×6 (00:05→20:25)
[2016-06-02] MEDS: Vancomycin 750 MG in D5% in Water 250 ML IVPB SCH ×3 (00:41→23:42)
[2016-06-02] MEDS ORDERED: Vancomycin 750 MG in D5% in Water 250 ML IVPB SCH (01:00)
[2016-06-02] MEDS: *HR* Heparin 5,000 UNIT/ML VIAL SQ SCH ×2 (04:35→17:41)
[2016-06-02] MEDS: methylPREDNISolone 125 MG/2 ML VIAL IVP SCH ×4 (06:24→23:39)
[2016-06-02] MEDS: Megestrol Acetate 400 MG/10 ML UDC PO SCH (07:59)
[2016-06-02] MEDS: Piperacillin/Tazobactam 3.375 GM in D5% in Water (Mini-Bag+) 100 ML IVPB SCH ×3 (07:59→23:41)
[2016-06-02] MEDS: Famotidine 20 MG TABLET PO SCH (08:00)
[2016-06-02] MEDS: BuPROPion SR (12 HR) 150 MG TABLET PO SCH ×2 (08:00→19:40)
[2016-06-02] MEDS: Aspirin 81 MG TAB.CHEW PO SCH (08:01)
[2016-06-02] MEDS: Sennosides/Docusate Sodium TABLET PO SCH ×2 (08:01→19:40)
--- NOTE | 2016-06-02 09:34 | Pre-Sedation Evaluation ---
Pre-sedation evaluation - Pre-sedation checklist Recent Vitals: Last Vital Signs Temp 98.4 F 06/02/16 07:10 Pulse 97 06/02/16 07:10 Resp 20 06/02/16 07:45 BP 128/67 06/02/16 07:10 Pulse Ox 92 L 06/02/16 07:45 Airway Assessment: Patient can open mouth completely, TMJ function normal, Micrognathia (under-bite, receding chin) absent, Neck with adequate range of motion Dentition: No loose teeth or bridges Possible difficult airway: No ASA Classification *see protocol: CLASS II-Mild systemic disease Plan of Care: Pt appropriate candidate for procedure/moderate/conscious sedation , Risks/benefits of procedure/sedation discussed w/ patient/family
[2016-06-02] MEDS ORDERED: *HR* FentaNYL (PF) 100 MCG/2 ML VIAL IV PRN (09:35)
[2016-06-02] MEDS ORDERED: *HR* Midazolam HCl 2 MG/2 ML VIAL IV PRN (09:35)
[2016-06-02] MEDS ORDERED: ceFAZolin 1,000 MG in D5% in Water (Mini-Bag+) 100 ML IVPB ONE (09:35)
--- NOTE | 2016-06-02 09:57 | Palliative Progress Note ---
Date of Encounter: 06/02/16 Time of Encounter: 09:40 - Assessment and plan (1) Cancer associated pain Current Visit: No Status: Acute Assessment and plan: Continue [place] PRN. Has utilized x3 last 24 hours. (2) Constipation by delayed colonic transit Current Visit: No Status: Acute Assessment and plan: Continue Senokot 2 tabs BID. Will add Miralax PRN. He does not want additional laxatives until further procedures completed today. (3) Nutrient intake below expected requirement Current Visit: Yes Status: Acute Assessment and plan: Continue Megace and monitor intake. Male Model following. Patient doesn't like supplements. Currently NPO for port placement. (4) Goals of care, counseling/discussion Current Visit: Yes Status: Acute Assessment and plan: Meeting completed yesterday. Advanced directives have been complete. Desires to remain full code. D/C plan to rehab - Time Spent With Patient Total time spent is greater than 50% in coordination of care (as documented) at patient's floor/unit and/or counseling patient: 25 - 35 minutes - Subjective Interval history: Patient awake and alert. States dyspneic last night but now improved. Denies pain at this time, states pain medication is effective for him. Did not eat much yesterday, but now NPO for port placement. No BM yet. No visitors present , was speaking with on phone. - Constitutional Vitals: Abnormal lab results RBC 3.88 M/mcL (4.19-5.50) L 06/01/16 05:20 Hgb 12.2 g/dL (12.9-16.9) L 06/01/16 05:20 Hct 35.4 % (37.5-50.1) L 06/01/16 05:20 PT 12.6 Seconds (9.4-12.1) H 05/30/16 12:07 APTT 25.5 Seconds (26.0-36.0) L 05/30/16 12:07 BUN/Creatinine Ratio 31 (6-26) H 06/01/16 05:20 Glucose 62 mg/dL (70-99) L 06/01/16 05:20 POC Glucose 92 (58-89) H 06/01/16 07:37 Calcium 7.6 mg/dL (8.6-10.8) L 06/01/16 05:20 Phosphorus 2.1 mg/dL (2.3-4.7) L 06/01/16 05:20 B-Natriuretic Peptide 137 pg/mL (0-100) H 05/30/16 12:07 Prealbumin 9.0 mg/dL (18.0-45.0) L 06/01/16 05:20 Ur Specific [place] 1.030 (1.010-1.025) H 05/31/16 10:07 Urine Protein 30 mg/dL (Neg-Trace) H 05/31/16 10:07 Urine Ketones Trace mg/dL (Negative) H 05/31/16 10:07 Urine Bilirubin Small (Negative) H 05/31/16 10:07 Urine Microscopic RBC 3-5 per hpf (0-3) H 05/31/16 10:07 Ur Squamous Epith Cells Many per lpf (None-Few) H 05/31/16 10:07 General appearance: Present: no acute distress - Respiratory Respiratory exam: Present: decreased breath sounds, CTAB - Cardiovascular Cardiovascular exam: Present: +S1, +S2 - GI/Abdominal GI/Abdominal exam: Present: normal bowel sounds, soft - Additional comments: Voiding per urinal, urine clear yellow - Extremities Exam Extremities exam: Present: normal capillary refill, normal inspection - Neurological Exam Neurological exam: Present: alert, oriented X3, strengths equal and symetr throughout Additional comments: Generalized weakness - Skin Skin exam: Present: dry, pallor Palliative Quality Palliative Quality: Screen for Code Status: Yes, Screen for Goals of Care: Yes, Screen for Pain: Yes, If Pain Regimen Started, Initiate Bowel Regimen: Yes, Screen for Nausea/Vomitting: Yes - Labs CBC & Chem 7: 06/01/16 05:20 06/01/16 05:20 Labs: Laboratory Results - last 24 hr 06/01/16 06/01/16 06/01/16 06:30 06:32 07:37 POC Glucose 56 L 59 92 H Troponin I 06/02/16 08:44 POC Glucose Troponin I 0.02 - Impressions Impressions Brain MRI 05/31/16 16:48 IMPRESSION: Old hemorrhagic products along the falx anteriorly and posteriorly as well as within the corpus callosum. There is a additionally encephalomalacia within the posteromedial aspect of the left frontal lobe. 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 Anterior cerebral artery aneurysm coiling. Moderate chronic microvascular disease within the periventricular white matter. No evidence of acute intracranial abnormality. No abnormal enhancement to suggest intracranial metastatic disease. D/ / 05/31/2016 19:52:02 Jt Epps MD / earnold Interpreting Provider: Jt Epps MD Chest X-Ray 06/01/16 23:07 IMPRESSION: New right-sided airspace disease with volume loss compatible with atelectasis. Superimposed pneumonia or radiation pneumonitis if there is history of recent radiation therapy are also considerations D/ / Tiago Vasquez MD / Tiago Vasquez MD Interpreting Provider: Tiago Vasquez MD - ABG Interpretation ABG results: PT/INR, D-dimer PT 12.6 Seconds (9.4-12.1) H 05/30/16 12:07 Consult Discharge Plan - Plan Referrals: Bonita Xavier MD [Primary Care Provider] -
[2016-06-02] MEDS ORDERED: Heparin 1,000 UNITS/500 mL NS 500 ML ONE (10:49)
[2016-06-02] MEDS ORDERED: 0.9 % Sodium Chloride 500 ML ONE (11:27)
--- NOTE | 2016-06-02 11:38 | Internal Med Progress Note ---
Date of Encounter: 06/02/16 Time of Encounter: 11:33 - Subjective Interval history: Patient seen and examined at bedside. Patient resting comfortably in bed and states he feels a lot better compared to yesterday. Denies any discomfort at this time. Patient seen and examined at bedside. Pt is to get chemotherapy port today. I spoke with patient's oncologist's office in regards to initiating chemotherapy. Patient's oncologist is to communicate with the patient in regards to when the chemotherapy can be initiated. After the family meeting with the palliative care team, patient decided to undergo placement of chemoport and discharge to rehab. Code status to remain Full Code Pt reported of significant smoking history and currently requiring continuous nasal cannula oxygen. Will obtain a O2 qualification test and patient will likely be discharged to rehab with oxygen therapy. Assessment/Plan: 1. 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 Leukocytosis Resolved Likely reactive given the cardioversion 3. Elevated TNI Likely secondary to aflutter No chest pain reported at this time will trend TNI continue ASA, Lipitor 4. Metastatic Lung cancer, non small cell lung cancer stage III chemo port placed today (06/02/16) Oncologist to have discussion with the patient in regards to one to start the chemotherapy. Likely DC to rehabilitation facility in the morning pending rehabilitation placement 5. Hypertension BP within acceptable range even while being off antihypertensive medications Will continue to closely monitor BP restart home antihypertensive medications as needed 6. HLD continue home medications 7. DVT ppx Heparin SQ 8. Malnutrition Likely secondary to underlying malignancy Nutrition consult requested Patient already on Megace - Constitutional Vitals: Temp Pulse Resp BP Pulse Ox 98.4 F 90 20 128/67 92 L 06/02/16 07:10 06/02/16 11:00 06/02/16 11:25 06/02/16 07:10 06/02/16 07:45 General appearance: Present: A&O X 3 (Weak), no acute distress, underweight, answers questions appropriately - Head Head exam: Present: atraumatic, normocephalic - Eye Eye exam: Present: normal appearance, conjuntiva pink, sclera anicteric - Respiratory Respiratory exam: Absent: respiratory distress, wheezes - Cardiovascular Cardiovascular exam: Present: RRR, +S1, +S2. Absent: diastolic murmur, gallop, rubs, systolic murmur - GI/Abdominal GI/Abdominal exam: Present: normal bowel sounds, soft, no peritoneal signs. Absent: distended, tenderness - Extremities Exam Extremities exam: Present: warm, radial pulses palpable and symetrical. Absent : calf tenderness, cyanotic, pedal edema - Neurological Exam Neurological exam: Present: alert, oriented X3 - Psychiatric Psychiatric exam: Present: normal affect, normal mood Internal Medicine: Result - Labs CBC & Chem 7: 06/01/16 05:20 06/01/16 05:20 Labs: Cardiac Enzymes 06/02/16 Range/Units 08:44 Troponin I 0.02 (0-0.03) ng/mL - ABG Interpretation ABG results: PT/INR, D-dimer PT 12.6 Seconds (9.4-12.1) H 05/30/16 12:07 - Impressions Impressions Brain MRI 05/31/16 16:48 IMPRESSION: Old hemorrhagic products along the falx anteriorly and posteriorly as well as within the corpus callosum. There is a additionally encephalomalacia within the posteromedial aspect of the left frontal lobe. 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 Anterior cerebral artery aneurysm coiling. Moderate chronic microvascular disease within the periventricular white matter. No evidence of acute intracranial abnormality. No abnormal enhancement to suggest intracranial metastatic disease. D/ / 05/31/2016 19:52:02 Jt Epps MD / earnold Interpreting Provider: Jt Epps MD Chest X-Ray 06/01/16 23:07 IMPRESSION: New right-sided airspace disease with volume loss compatible with atelectasis. Superimposed pneumonia or radiation pneumonitis if there is history of recent radiation therapy are also considerations D/ / Tiago Vasquez MD / Tiago Vasquez MD Interpreting Provider: Tiago Vasquez MD Consult Discharge Plan - Plan Referrals: Bonita Xavier MD [Primary Care Provider] - 06/23/16 10:30 am
[2016-06-02] MEDS: ALPRAZolam 0.25 MG TABLET PO PRN (19:40)
[2016-06-03] MEDS: Ipratropium/Albuterol Neb 3 ML IH SCH ×4 (00:49→11:42)
[2016-06-03 05:24] LABS: Basophils % 0.1 %; Hematocrit 39.8 % (37.5-50.1); Immature Granulocytes % 0.5 % (0-4); Lymphocytes # 0.2 K/mcL (0.6-4.6); Lymphocytes % 2.2 %; Mean Corpuscular HGB Conc 35.7 g/dL (31.6-35.5); Mean Corpuscular Hemoglobin 31.5 pg (28.0-33.3); Mean Corpuscular Volume 88.2 fL (83.0-100.0); Mean Platelet Volume 10.4 fL (9.4-12.4); Monocytes # 0.4 K/mcL (0.0-1.3); Monocytes % 3.8 %; Neutrophils # 8.8 K/mcL (1.6-8.9); Platelet Count 229 K/mcL (140-400); Red Blood Count 4.51 M/mcL (4.19-5.50); Red Cell Distribution Width 12.9 % (11.5-14.5); Segmented Neutrophils % 93.4 %
[2016-06-03 05:40] LABS: Hemoglobin 14.2 g/dL (12.9-16.9)
[2016-06-03 05:43] LABS: BUN/Creatinine Ratio 13 (6-26); Carbon Dioxide 23 mEq/L (19-29); Chloride 98 mEq/L (98-109); Glucose 200 mg/dL (70-99); Magnesium 1.5 mg/dL (1.6-2.6); Osmolality,Calculated 287 (280-300); Phosphorous 1.6 mg/dL (2.3-4.7); Potassium 3.1 mEq/L (3.5-4.5); Sodium 136 mEq/L (136-145); eGFR For African Americans > 60 (> 60); eGFR For Non-African Americans > 60 (> 60)
[2016-06-03 05:44] LABS: Blood Urea Nitrogen 11 mg/dL (8-26)
[2016-06-03] MEDS: methylPREDNISolone 125 MG/2 ML VIAL IVP SCH ×2 (06:22→11:16)
[2016-06-03] MEDS: *HR* Heparin 5,000 UNIT/ML VIAL SQ SCH (06:24)
[2016-06-03] MEDS: Piperacillin/Tazobactam 3.375 GM in D5% in Water (Mini-Bag+) 100 ML IVPB SCH (07:22)
[2016-06-03] MEDS: Megestrol Acetate 400 MG/10 ML UDC PO SCH (07:25)
[2016-06-03] MEDS: Aspirin 81 MG TAB.CHEW PO SCH (07:25)
[2016-06-03] MEDS: Famotidine 20 MG TABLET PO SCH (07:25)
[2016-06-03] MEDS: BuPROPion SR (12 HR) 150 MG TABLET PO SCH (07:26)
[2016-06-03] MEDS: Sennosides/Docusate Sodium TABLET PO SCH (07:26)
[2016-06-03] MEDS ORDERED: Potassium Phosphate 44 MEQ in 0.9 % Sodium Chloride 250 ML IVPB ONE (07:51)
[2016-06-03] MEDS ORDERED: Magnesium Sulfate 1 GM in D5% in Water 100 ML IVPB ONE (07:52)
[2016-06-03] MEDS ORDERED: GuaiFENesin/Codeine Oral Soln 5 ML UDC PO PRN (08:19)
--- NOTE | 2016-06-03 10:27 | Palliative Progress Note ---
Date of Encounter: 06/03/16 Time of Encounter: 10:25 - Assessment and plan (1) Cancer associated pain Current Visit: No Status: Acute Assessment and plan: Continue with [place] 5/325 mg as needed for pain. His last dose was on 06/01/16. Educated on the associated side effects of opioid use including drowsiness and constipation. Continue to monitor. (2) Constipation by delayed colonic transit Current Visit: No Status: Acute Assessment and plan: Mr. Wilburn is currently taking Senna Plus two tablets BID and Miralax. He also had an enema yesterday. Mr. Wilburn reports having a BM this morning, but the nursing staff states that is was just flatus. Continue to monitor. (3) Goals of care, counseling/discussion Current Visit: Yes Status: Acute Assessment and plan: Goals of care discussed and established yesterday. Plan for possible discharge to [facility] for rehab later today per hospitalist. information services assistant following for discharge needs. (4) Atrial flutter with rapid ventricular response Current Visit: Yes Status: Acute (5) Metastatic small cell carcinoma to liver Current Visit: No Status: Acute Assessment and plan: Oncology following. A-Port placed yesterday. - Time Spent With Patient Total time spent is greater than 50% in coordination of care (as documented) at patient's floor/unit and/or counseling patient: - Subjective Interval history: Mr. Wilburn is resting in bed with the television on. He denies pain, and last used pain medications on 06/01/16. Mr. Wilburn informed me this morning that his bowels have moved, although the nursing staff reports only flatus. He is compliant with his bowel regimen. - Constitutional Vitals: Abnormal lab results MCHC 35.7 g/dL (31.6-35.5) H 06/03/16 05:04 Lymphocytes # 0.2 K/mcL (0.6-4.6) L 06/03/16 05:04 PT 12.6 Seconds (9.4-12.1) H 05/30/16 12:07 APTT 25.5 Seconds (26.0-36.0) L 05/30/16 12:07 Potassium 3.1 mEq/L (3.5-4.5) L 06/03/16 05:04 Glucose 200 mg/dL (70-99) H 06/03/16 05:04 POC Glucose 92 (58-89) H 06/01/16 07:37 Calcium 8.0 mg/dL (8.6-10.8) L 06/03/16 05:04 Phosphorus 1.6 mg/dL (2.3-4.7) L 06/03/16 05:04 Magnesium 1.5 mg/dL (1.6-2.6) L 06/03/16 05:04 B-Natriuretic Peptide 137 pg/mL (0-100) H 05/30/16 12:07 Prealbumin 9.0 mg/dL (18.0-45.0) L 06/01/16 05:20 Ur Specific Pr[place] 1.030 (1.010-1.025) H 05/31/16 10:07 Urine Protein 30 mg/dL (Neg-Trace) H 05/31/16 10:07 Urine Ketones Trace mg/dL (Negative) H 05/31/16 10:07 Urine Bilirubin Small (Negative) H 05/31/16 10:07 Urine Microscopic RBC 3-5 per hpf (0-3) H 05/31/16 10:07 Ur Squamous Epith Cells Many per lpf (None-Few) H 05/31/16 10:07 General appearance: Present: cooperative, no acute distress Exam: 70 year old male patient appearing chronically ill. He is cooperative with exam. - ENT ENT exam: Present: mucous membranes dry - Respiratory Respiratory exam: Present: CTAB. Absent: accessory muscle use, respiratory distress, rhonchi - Cardiovascular Cardiovascular exam: Present: RRR - GI/Abdominal GI/Abdominal exam: Present: normal bowel sounds, soft. Absent: tenderness - Extremities Exam Extremities exam: Present: normal inspection - Neurological Exam Neurological exam: Present: alert, oriented X3, no focal deficits, strengths equal and symetr throughout (global weakness) - Skin Skin exam: Present: dry, warm Palliative Quality Palliative Quality: Screen for Code Status: Yes, Screen for Goals of Care: Yes, Screen for Pain: Yes, If Pain Regimen Started, Initiate Bowel Regimen: Yes, Screen for Nausea/Vomitting: Yes - Labs CBC & Chem 7: 06/03/16 05:04 06/03/16 05:04 Labs: Laboratory Results - last 24 hr 06/03/16 06/03/16 05:04 05:04 WBC 9.4 RBC 4.51 Hgb 14.2 D Hct 39.8 MCV 88.2 MCH 31.5 MCHC 35.7 H RDW 12.9 Plt Count 229 MPV 10.4 Immature Gran % 0.5 Seg Neutrophils % 93.4 Lymphocytes % 2.2 Monocytes % 3.8 Eosinophils % 0.0 Basophils % 0.1 Neutrophils # 8.8 Lymphocytes # 0.2 L Monocytes # 0.4 Eosinophils # 0.0 Basophils # 0.0 Sodium 136 Potassium 3.1 L Chloride 98 Carbon Dioxide 23 BUN 11 D Creatinine 0.85 Est GFR ( Amer) > 60 Est GFR (Non-Af Amer) > 60 BUN/Creatinine Ratio 13 Glucose 200 H Calculated Osmolality 287 Calcium 8.0 L Phosphorus 1.6 L Magnesium 1.5 L - Impressions Impressions Guidance Needle Placement Ultrasound 06/02/16 00:00 IMPRESSION: Successful ultrasound and fluoroscopy guided Port-A-Cath placement D/ / Rubin Chan MD / Rubin Chan MD Interpreting Provider: Rubin Chan MD Insertion Tunneled Catheter 06/02/16 00:00 IMPRESSION: Successful ultrasound and fluoroscopy guided Port-A-Cath placement D/ / Rubin Chan MD / Rubin Chan MD Interpreting Provider: Rubin Chan MD - ABG Interpretation ABG results: PT/INR, D-dimer PT 12.6 Seconds (9.4-12.1) H 05/30/16 12:07 Consult Discharge Plan - Plan Referrals: Stephane Sherman MD [Partnered Physician] - 06/07/16 9:30 am Bonita Xavier MD [Primary Care Provider] - 06/23/16 10:30 am
[2016-06-03 11:30] VITALS: BP 129/78
--- NOTE | 2016-06-03 11:49 | Discharge Summary ---
Date of Encounter: 06/03/16 Time of Encounter: 11:36 - Discharge Diagnosis (1) Metastatic primary lung cancer Priority: Primary Status: Acute Qualifiers: Laterality: unspecified laterality Qualified Code(s): C34.90 - Malignant neoplasm of unspecified part of unspecified bronchus or lung (2) Malnutrition Priority: Secondary Status: Acute (3) Atrial flutter with rapid ventricular response Priority: Primary Status: Acute (4) Elevated troponin I measurement Priority: Secondary Status: Acute (5) Goals of care, counseling/discussion Priority: Secondary Status: Acute (6) Hypertension Priority: Secondary Status: Chronic Qualifiers: Hypertension type: essential hypertension Qualified Code(s): I10 - Essential (primary) hypertension (7) Pneumonia Priority: Secondary Status: Acute Qualifiers: Pneumonia type: due to unspecified organism Laterality: unspecified laterality Lung location: unspecified part of lung Qualified Code(s): J18.9 - Pneumonia, unspecified organism - Discharge Medications Prescriptions: GuaiFENesin/Codeine [ROBITUSSIN w/CODEINE] 5 ml PO Q6HR PRN #30 udc PRN Reason: Cough Alprazolam [Xanax 0.25 MG Tablet] 0.25 mg PO HS PRN #20 tablet PRN Reason: Anxiety HYDROcodone/Acet 5/325 mg [[place] 5-325 mg] 1 tab PO Q6H PRN #20 tablet PRN Reason: Pain Levofloxacin [Levaquin] 500 mg PO DAILY #5 tablet MOM Conc [Milk of Magnesia Conc] 10 ml PO DAILY PRN #30 mls PRN Reason: Constipation PredniSONE 40 mg PO DAILY #7 tablet Home Medications: Atorvastatin [Lipitor] 40 mg PO DAILY 12/02/14 [History] BuPROPion SR (12 HR) [Wellbutrin SR] 150 mg PO BID 05/15/16 [History] Amlodipine [Norvasc] 5 mg PO DAILY #30 tablet 05/19/16 [Rx] Allopurinol [Zyloprim 300 MG] 300 mg PO DAILY #30 tablet 05/27/16 [Rx] Lidocaine/Prilocaine CREAM [Emla] 1 appl TP PRN PRN #1 tube 05/27/16 [Rx] Megestrol Acetate [Megace] 10 ml PO DAILY #300 mls 05/27/16 [Rx] Omeprazole [PriLOSEC] 20 mg PO DAILY #30 cap 05/27/16 [Rx] Ondansetron HCl [Zofran] 4 mg PO Q6H PRN #30 tablet 05/27/16 [Rx] Prochlorperazine Maleate [Compazine] 10 mg PO Q6HR PRN #60 tablet 05/27/16 [Rx] Acetaminophen [Tylenol] 650 mg PO Q6HR PRN #0 tablet 06/03/16 [Rx] Alprazolam [Xanax 0.25 MG Tablet] 0.25 mg PO HS PRN #20 tablet 06/03/16 [Rx] Aspirin 81 mg PO DAILY tab.chew 06/03/16 [Rx] Diltiazem [Cardizem] 30 mg PO Q6HR tablet 06/03/16 [Rx] GuaiFENesin/Codeine [ROBITUSSIN w/CODEINE] 5 ml PO Q6HR PRN #30 udc 06/03/16 [Rx ] HYDROcodone/Acet 5/325 mg [[place] 5-325 mg] 1 tab PO Q6H PRN #20 tablet 06/03/16 [Rx] Ipratropium/Albuterol Neb [Duoneb] 3 ml IH [id number] inhsol 06/03/16 [Rx] Levofloxacin [Levaquin] 500 mg PO DAILY #5 tablet 06/03/16 [Rx] MOM Conc [Milk of Magnesia Conc] 10 ml PO DAILY PRN #30 mls 06/03/16 [Rx] PredniSONE 40 mg PO DAILY #7 tablet 06/03/16 [Rx] Sennosides/Docusate Sodium [Senna Plus] 2 each PO BID tablet 06/03/16 [Rx] Allergies/Adverse Reactions: Allergies No Known Allergies Allergy (Verified 11/28/14 20:44) Procedures/tests Complete & Pending: Procedures Performed prior 72 hours Category Date Time Status IR cvc insert with port [IR] Routine IR 06/02/16 Completed IR us guide needle place [IR] Routine IR 06/02/16 Completed MR head/brain wo/w con [MR] Routine MRI 05/31/16 16:48 Completed Date of admission: 05/30/16 16:59 Primary care physician: Bonita [facility] Consults: 05/30/16 18:00 Consult to Palliative Care [CONS] Routine Comment: Consulting Provider: Palliative Care [place] 05/31/16 09:28 Consult to Occupational Therapy [CONS] Routine Comment: Evaluate, develop and implement POC Consult to Physical Therapy [CONS] Routine Comment: Evaluate, develop and implement POC 05/31/16 17:02 Consult to Oncology [CONS] Routine Consulting Provider: On[facility] Reason for Consult: Dr Anthony to call. Spoke with Kate at Cancer [facility]. Would like MRI of head and port placement. Call Completed: No Discharging clinician: Shari Anthony Anticipated date of discharge: 06/03/16 - Patient Status Disposition: Transfer SNF Condition: Fair Functional capacity at discharge: uses cane/walker Overall status at discharge: patient is back to baseline - Discharge Instructions Follow Up With: Stephane Sherman MD [Partnered Physician] - 06/07/16 9:30 am Bonita Xavier MD [Primary Care Provider] - 06/23/16 10:30 am Additional Instructions: Please follow up with your primary care physician within one week after your discharge from the hospital. Please follow up with your oncologist within five days after your discharge from the hospital. Please continue oral antibiotics and steroids as prescribed. Please continue to take cardizem for Heart RAte control as prescribed. Please take all your home medications as prescribed by your primary care physician. Please continue to use Oxygen therapy as needed. Goal O2 saturation>89%. Please seek medical help immediately if you have difficulty breathing or have chest pain. - Diet and Activity Activity: as per physical therapy, other (wear oxygen as needed) Diet: advance to your usual diet Hospital course: Mr. Wilburn is a 70 year old male medical history significant for recently diagnosed metastatic lung cancer was referred from the cancer center with unrecordable blood pressure and tachycardia. In the ED, he was found in atrial flutter with RVR, he received low dose Motoprolol, and later cardizem bolus which did not reduce the rate, he became hemodynamically unstable and required emergency cardioversion. Patient was further seen by cardiology and cardizem was recommended for rate control and given patient's history of subarachanoid hemorrhage, he was not started on anticoagulation. He was also noted to have respiratory distress and was found to have underlying PNA for which he was started on Vanco and Zosyn, and steroids. Pt responded well to therapy. Palliative care team and social work team had a discussion with the patient and family in regards to patient's code status and goals of care. Patient is to remain full code. He received a chemo port during this hospitalization and will be discharged to rehab facility and will follow up with Oncologist for initiation of chemotherapy. Patient's mental status waxes and wanes as per family with episodes of complete confusion. At this time pt is hemodynamically stable and will be discharged to SNF with follow up with PCP and oncology. He is to continue abx and steroid therapy. - Time Spent with Patient Total time spent providing and/or coordinating discharge services: Greater than 30 minutes - Constitutional Vitals: Temp Pulse Resp BP Pulse Ox 98.0 F 104 22 129/78 95 06/03/16 11:28 06/03/16 11:28 06/03/16 11:28 06/03/16 11:28 06/03/16 11:28 General appearance: Present: A&O X 3 (Weak), no acute distress, underweight, answers questions appropriately - Head Head exam: Present: atraumatic, normocephalic - Eye Eye exam: Present: normal appearance, conjuntiva pink, sclera anicteric - Respiratory Respiratory exam: Present: CTAB. Absent: respiratory distress, wheezes - Cardiovascular Cardiovascular exam: Present: RRR, +S1, +S2. Absent: diastolic murmur, gallop, rubs, systolic murmur Additional comments: right chest wall chemoport in place - GI/Abdominal GI/Abdominal exam: Present: normal bowel sounds, soft. Absent: distended, tenderness - Extremities Exam Extremities exam: Present: warm, radial pulses palpable and symetrical. Absent : calf tenderness, cyanotic, pedal edema - Neurological Exam Neurological exam: Present: alert - Psychiatric Psychiatric exam: Present: normal affect, normal mood
--- NOTE | 2016-06-03 11:59 | Physician Discharge Referral ---
ExtendedCare Referral Info Transfer To: F Provider in Charge after Transfer: PCP - Diagnosis (1) Metastatic primary lung cancer Priority: Primary Status: Acute (2) Malnutrition Priority: Secondary Status: Acute (3) Atrial flutter with rapid ventricular response Priority: Primary Status: Acute (4) Elevated troponin I measurement Priority: Secondary Status: Acute (5) Goals of care, counseling/discussion Priority: Secondary Status: Acute (6) Hypertension Priority: Secondary Status: Chronic (7) Pneumonia Priority: Secondary Status: Acute - Transfer Medications Prescriptions: GuaiFENesin/Codeine [ROBITUSSIN w/CODEINE] 5 ml PO Q6HR PRN #30 udc PRN Reason: Cough Alprazolam [Xanax 0.25 MG Tablet] 0.25 mg PO HS PRN #20 tablet PRN Reason: Anxiety HYDROcodone/Acet 5/325 mg [[place] 5-325 mg] 1 tab PO Q6H PRN #20 tablet PRN Reason: Pain Levofloxacin [Levaquin] 500 mg PO DAILY #5 tablet MOM Conc [Milk of Magnesia Conc] 10 ml PO DAILY PRN #30 mls PRN Reason: Constipation PredniSONE 40 mg PO DAILY #7 tablet Home Medications: Atorvastatin [Lipitor] 40 mg PO DAILY 12/02/14 [History] BuPROPion SR (12 HR) [Wellbutrin SR] 150 mg PO BID 05/15/16 [History] Amlodipine [Norvasc] 5 mg PO DAILY #30 tablet 05/19/16 [Rx] Allopurinol [Zyloprim 300 MG] 300 mg PO DAILY #30 tablet 05/27/16 [Rx] Lidocaine/Prilocaine CREAM [Emla] 1 appl TP PRN PRN #1 tube 05/27/16 [Rx] Megestrol Acetate [Megace] 10 ml PO DAILY #300 mls 05/27/16 [Rx] Omeprazole [PriLOSEC] 20 mg PO DAILY #30 cap 05/27/16 [Rx] Ondansetron HCl [Zofran] 4 mg PO Q6H PRN #30 tablet 05/27/16 [Rx] Prochlorperazine Maleate [Compazine] 10 mg PO Q6HR PRN #60 tablet 05/27/16 [Rx] Acetaminophen [Tylenol] 650 mg PO Q6HR PRN #0 tablet 06/03/16 [Rx] Alprazolam [Xanax 0.25 MG Tablet] 0.25 mg PO HS PRN #20 tablet 06/03/16 [Rx] Aspirin 81 mg PO DAILY tab.chew 06/03/16 [Rx] Diltiazem [Cardizem] 30 mg PO Q6HR tablet 06/03/16 [Rx] GuaiFENesin/Codeine [ROBITUSSIN w/CODEINE] 5 ml PO Q6HR PRN #30 udc 06/03/16 [Rx ] HYDROcodone/Acet 5/325 mg [[place] 5-325 mg] 1 tab PO Q6H PRN #20 tablet 06/03/16 [Rx] Ipratropium/Albuterol Neb [Duoneb] 3 ml IH [id number] inhsol 06/03/16 [Rx] Levofloxacin [Levaquin] 500 mg PO DAILY #5 tablet 06/03/16 [Rx] MOM Conc [Milk of Magnesia Conc] 10 ml PO DAILY PRN #30 mls 06/03/16 [Rx] PredniSONE 40 mg PO DAILY #7 tablet 06/03/16 [Rx] Sennosides/Docusate Sodium [Senna Plus] 2 each PO BID tablet 06/03/16 [Rx] Allergies/Adverse Reactions: Allergies No Known Allergies Allergy (Verified 11/28/14 20:44) - Respiratory Orders Oxygen / L per min (2l/min nasal cannula as needed. Maintain O2 saturation above 89%.) Smoking Cessation: Smoking cessation has been advised. For more information, call the [place] Tobacco Quit Line at 1-002-BSKZ-NOW. - Treatments List/Other: Please follow up with your primary care physician within one week after your discharge from the hospital. Please follow up with your oncologist within five days after your discharge from the hospital. Please continue oral antibiotics and steroids as prescribed. Please continue to take cardizem for Heart RAte control as prescribed. Please take all your home medications as prescribed by your primary care physician. Please continue to use Oxygen therapy as needed. Goal O2 saturation>89%. Please seek medical help immediately if you have difficulty breathing or have chest pain. CERTIFICATION: I certify that the transfer of the above named patient to an Extended Care Facility is necessary for the continuing treatment of the diagnosis listed. The above information is true and accurate reflection of patient's current condition. Confidential - Redisclosure prohibited without a patient's written consent.
[2016-06-03] MEDS ORDERED: Aminoglycoside Consult 1 EACH MC ONE (15:17)
--- NOTE | 2016-06-03 18:58 | Oncology Inp Progress Note ---
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 We made arrangements and notified the patient Oncology: Subj Interval history: Admitted with atrial flutter with ventricular rate around 170 bpm. Currently sinus rhythm with Cardiazem. Cardiology involved Vital signs stable. He had a port placement the right internal jugular by interventional radiology 06/02/2016. He is ready to proceed with chemotherapy - Constitutional Vitals: Vital Signs Temp Pulse Resp BP Pulse Ox 06/03/16 11:42 18 94 L 06/03/16 11:28 98.0 F 104 22 129/78 95 06/03/16 11:00 107 06/03/16 08:15 18 93 L 06/03/16 07:52 98 06/03/16 07:39 98.1 F 105 20 132/86 93 L 06/03/16 04:08 98.2 F 101 16 122/72 92 L 06/03/16 04:00 103 06/03/16 03:50 18 90 L 06/03/16 02:00 92 L 06/03/16 00:50 16 92 L 06/03/16 00:00 98.6 F 97 24 108/66 93 L 06/02/16 20:25 18 92 L 06/02/16 20:00 97 F L 119 18 151/93 92 L Intake and Output 06/03/16 06/03/16 06/03/16 07:59 15:59 23:59 Intake Total 350 / 350 194 / 194 Output Total 1225 / 1225 Balance -875 / -875 194 / 194 Intake: IV Fluids 350 / 350 194 / 194 Magnesium Sulfate 1 GM In 94 / 94 Dextrose 5% 100 ML @ 100 mls/hr IVPB ONCE ONE Rx# :[id number] Zosyn 3.375 GM In 100 / 100 100 / 100 Dextrose 5% (Minibag+) 100 ML 100 ML @ 25 mls/hr IVPB Q8HR MICHEL Rx#: [id number] Vancocin 750 MG In 250 / 250 Dextrose 5% 250 ML @ 250 mls/hr IVPB Q12H MICHEL Rx#: [id number] Output: Urine 1075 / 1075 Catheter 150 / 150 Other: Weight 56.8 kg Patient Weight 06/03/16 23:59 Weight 56.8 kg Exam: GENERAL: Alert and oriented, well appearing. Mental Status: Affect appropriate for circumstances HEENT: Sclerae anicteric. No mucositis or thrush. No other oral or pharyngeal lesions or erythema. Skin: No rashes or petechiae. No evidence of skin malignancy Lymph nodes: No cervical, supraclavicular, axillary, or inguinal adenopathy. Lungs: Clear to auscultation and percussion bilaterally. Cardiovascular: Regular rate and rhythm. No gallops, murmurs, or rubs. Abdomen: Soft, nontender; no organomegaly or masses palpable. Extremities: No edema. No calf swelling or tenderness. No joint deformity. Neurologic: Alert, cranial nerves II-XII intact; normal gait; no focal weakness or sensory abnormalities. Oncology: Obj Data - Labs CBC & Chem 7: 06/03/16 05:04 06/03/16 05:04 Labs: Laboratory Results - last 24 hr 06/03/16 06/03/16 05:04 05:04 WBC 9.4 RBC 4.51 Hgb 14.2 D Hct 39.8 MCV 88.2 MCH 31.5 MCHC 35.7 H RDW 12.9 Plt Count 229 MPV 10.4 Immature Gran % 0.5 Seg Neutrophils % 93.4 Lymphocytes % 2.2 Monocytes % 3.8 Eosinophils % 0.0 Basophils % 0.1 Neutrophils # 8.8 Lymphocytes # 0.2 L Monocytes # 0.4 Eosinophils # 0.0 Basophils # 0.0 Sodium 136 Potassium 3.1 L Chloride 98 Carbon Dioxide 23 BUN 11 D Creatinine 0.85 Est GFR ( Amer) > 60 Est GFR (Non-Af Amer) > 60 BUN/Creatinine Ratio 13 Glucose 200 H Calculated Osmolality 287 Calcium 8.0 L Phosphorus 1.6 L Magnesium 1.5 L - ABG Interpretation ABG results: PT/INR, D-dimer PT 12.6 Seconds (9.4-12.1) H 05/30/16 12:07 Consult Discharge Plan - Plan Instructions: Atrial Flutter (DC), Pneumonia (DC) Additional Instructions: Please follow up with your primary care physician within one week after your discharge from the hospital. Please follow up with your oncologist within five days after your discharge from the hospital. Please continue oral antibiotics and steroids as prescribed. Please continue to take cardizem for Heart RAte control as prescribed. Please take all your home medications as prescribed by your primary care physician. Please continue to use Oxygen therapy as needed. Goal O2 saturation>89%. Please seek medical help immediately if you have difficulty breathing or have chest pain. Referrals: Stephane Sherman MD [Partnered Physician] - 06/07/16 9:30 am Bonita Xavier MD [Primary Care Provider] - 06/23/16 10:30 am Prescriptions: GuaiFENesin/Codeine [ROBITUSSIN w/CODEINE] 5 ml PO Q6HR PRN #30 udc PRN Reason: Cough Alprazolam [Xanax 0.25 MG Tablet] 0.25 mg PO HS PRN #20 tablet PRN Reason: Anxiety HYDROcodone/Acet 5/325 mg [[place] 5-325 mg] 1 tab PO Q6H PRN #20 tablet PRN Reason: Pain Levofloxacin [Levaquin] 500 mg PO DAILY #5 tablet MOM Conc [Milk of Magnesia Conc] 10 ml PO DAILY PRN #30 mls PRN Reason: Constipation PredniSONE 40 mg PO DAILY #7 tablet
== END 2016-06-03 15:18 | DRG 308 ==
LOC: 2NENU 10:56 → EMEROO 10:56 → 2NNU 15:22 → SUATTDRO 16:59
PROVIDERS: ADMIT Internal Medicine; ATTEND Internal Medicine

== ENCOUNTER 2016-07-21 12:05 | Observation (INO) ==
--- NOTE | 2016-07-21 12:49 | Emergency Department Note ---
Disposition Clinical Impression: Weakness, Protein-calorie malnutrition, Small cell carcinoma of right lung Disposition: Admitted As Inpatient General Adult HPI - General Chief complaint: ED Weakness Stated complaint: side effects from chemo Time Seen by Provider: 07/21/16 12:25 Source: patient Limitations: no limitations - History of Present Illness HPI Narrative: 70-year-old male with history of small cell lung cancer, devious hemorrhagic stroke presents with chief complaint of chemotherapy side effects. Patient daughter says that he has been more confused in the last 24 hours, with left abdominal pain, nausea. Patient also had episode of possible vision loss as he was stated to not being able to see his daughter in front of him. Currently patient is alert and oriented 3 and not in distress. Denies syncope, denies facial droop, denies numbness. Patient has had 6 weeks of chemotherapy on cisplatin, etopaside. He also states he has had a cough productive of white sputum that started 1 week ago. Patient's hemorrhagic stroke was in 2014 and was repaired with a coil. Recent MRI does not show any brain metastasis of small cell lung cancer however his recent PET scan showed metastasis to the liver. He is on palliative chemotherapy. PET scan also showed a 5.5 x 5.5 centimeter aortic abdominal aneurysm. Vitals are stable on presentation. Pain Scale: 0 - Related Data Home Medications Medication Instructions Recorded Confirmed Atorvastatin [Lipitor] 40 mg PO DAILY 12/02/14 07/21/16 BuPROPion SR (12 HR) [Wellbutrin 300 mg PO DAILY 05/15/16 07/21/16 SR] Diltiazem CD (24hr) [Cardizem CD] 120 mg PO DAILY 07/13/16 07/21/16 Ipratropium/Albuterol Neb [Duoneb] 3 ml IH [id number] PRN 07/21/16 07/21/16 Previous Rx's Medication Instructions Recorded Amlodipine [Norvasc] 5 mg PO DAILY #30 tablet 05/19/16 Lidocaine/Prilocaine CREAM [Emla] 1 appl TP PRN PRN #1 tube 05/27/16 Omeprazole [PriLOSEC] 20 mg PO DAILY #30 cap 05/27/16 Ondansetron HCl [Zofran] 4 mg PO Q6H PRN #30 tablet 05/27/16 Prochlorperazine Maleate 10 mg PO Q6HR PRN #60 tablet 05/27/16 [Compazine] Acetaminophen [Tylenol] 650 mg PO Q6HR PRN #0 tablet 06/03/16 Alprazolam [Xanax 0.25 MG Tablet] 0.25 mg PO HS PRN #20 tablet 06/03/16 Aspirin 81 mg PO DAILY tab.chew 06/03/16 MOM Conc [Milk of Magnesia Conc] 10 ml PO DAILY PRN #30 mls 06/03/16 Polyethylene Glycol 3350 [MiraLAX 1 scoop PO DAILY #510 gm 06/14/16 Powder Bulk 17.9 Oz] Oxycodone HCl [Oxaydo] 5 mg PO Q4H PRN #84 tablet.orl 07/06/16 Allopurinol [Zyloprim 300 MG] 300 mg PO DAILY #30 tablet 07/11/16 Megestrol Acetate [Megace] 10 ml PO DAILY #300 mls 07/11/16 Silver Sulfadiazine [Silvadene] 1 appl TP BID #1 cream..g. 07/13/16 Allergies Allergy/AdvReac Type Severity Reaction Status Date / Time No Known Allergies Allergy Verified 07/13/16 08:41 Review of Systems: Constitutional: Denies fever, chills, reports confusion, weakness HEENT: Denies headache, reports possible vision loss, Heart: Denies chest pain palpitations Lungs: Denies shortness of breath cough Abdomen: Reports abdominal pain, nausea denies vomiting diarrhea Extremities: Denies swelling, pain Neuro: Denies numbness, and tingling Past Medical History - Past Medical History Medical history: Reports: cancer, CVA, hyperlipidemia, hypertension Psychiatric history: Reports: depression - Social History Smoking Status: Current every day smoker Smokeless Tobacco Status: No Alcohol use: Reports: none Drug use: Reports: none Physical Exam General: Alert and oriented to place time and situation. Without distress HEENT: Head atraumatic, normocephalic, EOMI, PERRLA, neck nontender to palpation , Lymphadenopathy, Moist Mucous Membranes, absent temporal tenderness to palpation Heart: Regular rate and rhythm with no murmur Lungs: Clear to auscultation bilaterally Abdomen: Soft nontender, nondistended positive bowel sounds Extremities: Absent pedal edema, Neuro: Cranial nerves II through XII intact, sensation equal bilaterally, strength upper and lower extremity 4/5 bilaterally, alert oriented 3, patient not able to stand on his own. Vascular: Pedal and radialpulses 2 out of 4 - General Limitations: no limitations General appearance: alert, in no apparent distress Course Course Narrative: CT HEAD, CBC, BMP, URINALYSIS, AMMONIA, HEPATIC PANEL - Reevaluation(s) Reevaluation #1: Patient's white blood cell count is 26.7. Hemoglobin is 11.0 stable from before. Potassium 4.6. Serum creatinine within normal limits. Elevation of total bilirubin 1.8. Normal ammonia level. Elevation of AST and ALT. Head CT negative for bleed, acute changes. Chest x-ray shows interval progression of metastatic lung cancer. Reevaluation #2: Talk to her oncologist and his practitioner Ed who stated to admit the patient for weakness and protein calorie malnutrition. Patient is on his third cycle of chemotherapy and in between is getting infusions of normal saline. He has poor nutrition and has been steadily losing weight. We will contact hospice for admission. Time: 15:05 Vital Signs Temperature 98.1 F 07/21/16 12:08 Pulse Rate 118 07/21/16 12:08 Respiratory Rate 20 07/21/16 12:08 Blood Pressure 117/81 07/21/16 12:08 O2 Sat by Pulse Oximetry 95 07/21/16 12:08 Temperature 98.1 F 07/21/16 12:08 Pulse Rate 110 07/21/16 15:09 Respiratory Rate 20 07/21/16 15:09 Blood Pressure 121/94 07/21/16 15:09 O2 Sat by Pulse Oximetry 94 07/21/16 15:09 Oxygen Delivery Oxygen Delivery Room Air Medical Decision Making - [facility] Narrative Medical decision making narrative: 70-year-old male presents with chief complaint of chemotherapy side effects. He is followed by Dr. Sherman outpatient for small cell lung cancer. Patient' s on third cycle of chemotherapy with infusions of normal saline between cycles. He will be admitted for weakness and protein calorie malnutrition. Oncology has been consulted. - Medical Records Medical records reviewed: Yes I reviewed the patient's medical records. - Lab Data Lab results reviewed: Yes I reviewed the patient's lab results. Result diagrams: 07/21/16 13:18 07/21/16 13:18 Lab Results 07/21/16 07/21/16 07/21/16 Range/Units 13:18 13:18 13:18 WBC 26.7 H D (4.3-11.1) K/mcL RBC 3.45 L (4.19-5.50) M/mcL Hgb 11.0 L (12.9-16.9) g/dL Hct 32.1 L (37.5-50.1) % MCV 93.0 (83.0-100.0) fL MCH 31.9 (28.0-33.3) pg MCHC 34.3 (31.6-35.5) g/dL RDW 18.6 H (11.5-14.5) % Plt Count 298 (140-400) K/mcL MPV 10.0 (9.4-12.4) fL Immature Gran % 1.3 (0-4) % Seg Neutrophils % 89.6 % Lymphocytes % 6.2 % Monocytes % 2.8 % Eosinophils % 0.0 % Basophils % 0.1 % Neutrophils # 23.9 H (1.6-8.9) K/mcL Lymphocytes # 1.7 (0.6-4.6) K/mcL Monocytes # 0.8 (0.0-1.3) K/mcL Eosinophils # 0.0 (0.0-0.6) K/mcL Basophils # 0.0 (0.0-0.2) K/mcL Platelet Estimate Normal (Normal) Sodium 136 (136-145) mEq/L Potassium 4.6 H D (3.5-4.5) mEq/L Chloride 96 L (98-109) mEq/L Carbon Dioxide 24 (19-29) mEq/L BUN 29 H D (8-26) mg/dL Creatinine 0.92 (0.72-1.25) mg/dL Est GFR ( Amer) > 60 (> 60) Est GFR (Non-Af Amer) > 60 (> 60) BUN/Creatinine Ratio 32 H (6-26) Glucose 70 (70-99) mg/dL Calculated Osmolality 286 (280-300) Calcium 9.0 (8.6-10.8) mg/dL Total Bilirubin 1.8 H D (0.2-1.2) mg/dL Direct Bilirubin 1.0 H (0.0-0.5) mg/dL Indirect Bilirubin 0.8 (0.0-1.2) mg/dL AST 130 H (5-34) Units/L ALT 68 H (0-55) Units/L Alkaline Phosphatase 302 H (38-126) Units/L Ammonia 35 (18-72) mcmol/L Serum Total Protein 6.6 (6.0-8.3) g/dL Albumin 3.0 L (3.5-5.0) g/dL Globulin 3.6 H (2.4-3.5) g/dL Albumin/Globulin Ratio 0.8 L (1.1-2.2)
[2016-07-21 13:28] LABS: Basophils % 0.1 %; Immature Granulocytes % 1.3 % (0-4); Lymphocytes % 6.2 %; Monocytes % 2.8 %; Segmented Neutrophils % 89.6 %
[2016-07-21 13:30] LABS: Hematocrit 32.1 % (37.5-50.1); Lymphocytes # 1.7 K/mcL (0.6-4.6); Mean Corpuscular HGB Conc 34.3 g/dL (31.6-35.5); Mean Corpuscular Hemoglobin 31.9 pg (28.0-33.3); Platelet Count 298 K/mcL (140-400); Red Blood Count 3.45 M/mcL (4.19-5.50); Red Cell Distribution Width 18.6 % (11.5-14.5)
[2016-07-21 13:39] LABS: Monocytes # 0.8 K/mcL (0.0-1.3); Neutrophils # 23.9 K/mcL (1.6-8.9)
[2016-07-21 13:41] LABS: Alanine Aminotransferase 68 Units/L (0-55); Albumin/Globulin Ratio 0.8 (1.1-2.2); Alkaline Phosphatase 302 Units/L (38-126); Aspartate Amino Transferase 130 Units/L (5-34); BUN/Creatinine Ratio 32 (6-26); Bilirubin,Indirect 0.8 mg/dL (0.0-1.2); Carbon Dioxide 24 mEq/L (19-29); Chloride 96 mEq/L (98-109); Globulin 3.6 g/dL (2.4-3.5); Glucose 70 mg/dL (70-99); Osmolality,Calculated 286 (280-300); Sodium 136 mEq/L (136-145); Total Protein 6.6 g/dL (6.0-8.3); eGFR For African Americans > 60 (> 60); eGFR For Non-African Americans > 60 (> 60)
[2016-07-21 13:42] LABS: Bilirubin,Total 1.8 mg/dL (0.2-1.2); Blood Urea Nitrogen 29 mg/dL (8-26); Potassium 4.6 mEq/L (3.5-4.5)
[2016-07-21 13:54] LABS: Platelet Estimate Normal (Normal)
[2016-07-21] MEDS ORDERED: 0.9 % Sodium Chloride 1,000 ML IVC ONE (14:36)
[2016-07-21] MEDS ORDERED: Acetaminophen 325 MG TABLET PO PRN (16:50)
[2016-07-21] MEDS ORDERED: Naloxone 0.4 MG/ML INJ IVP PRN (16:50)
--- NOTE | 2016-07-21 18:05 | Internal Med History&Physical ---
Date of Encounter: 07/21/16 Time of Encounter: 18:03 Assessment and Plan (1) Weakness Current visit: Yes Status: Acute Patient presenting with generalized weakness related to dehydration and chemotherapy. place the patient in hospital for observation. Hydrate intravenously. Monitor vital signs closely. Physical therapy evaluation. (2) Dehydration Current visit: Yes Status: Acute Related to chemotherapy. We will hydrate intravenously. (3) Small cell carcinoma of right lung Current visit: Yes Status: Chronic Follow-up with oncology. Supportive care. Pain medications as needed. O2 supplementation as needed. Chest x-ray shows increase in the size of the right infrahilar mass and increasing size of the paratracheal lesion. (4) Leukocytosis Current visit: Yes Status: Acute Patient has leukocytosis but this appears to be chronic and related to his cancer chemotherapy regimen along with the use of Neulasta. No acute signs of infection at this time. Will monitor for now. Qualifiers: Leukocytosis type: other Qualified Code(s): D72.828 - Other elevated white blood cell count (5) Anemia Current visit: Yes Status: Acute Patient has anemia likely related to chemotherapy. We will monitor blood counts closely. Qualifiers: Anemia type: other cause Other causes of anemia: antineoplastic chemotherapy Qualified Code(s): D64.81 - Anemia due to antineoplastic chemotherapy Internal Medicine - H&P: HPI Chief complaint: Generalized weakness Admitted From: Emergency Dept Plans for Post Hospital Care: Home History of present illness: Mr. Wilburn is a 71 year old male patient with history of lung cancer who is receiving chemotherapy presented to the ER with complaints of generalized weakness. Patient received 2 cycles of chemotherapy this week and has been feeling more weak than usual after his treatments. According to his daughter was present at the bedside and patient has also been feeling very dehydrated. He has been having cough with some sputum production that is unchanged from before. He denies any hemoptysis. He does complain of some abdominal pain and according to his daughter had some chest pain earlier today. No fever or chills or night sweats reported. Patient has been receiving Neulasta in between his chemotherapy regimens. The patient's daughter also reports that the patient was confused last night. No other neurologic symptoms reported. Past Med Surg Social Fam HX - Past Medical History Attestation: Yes The following information was validated with the patient. Source: patient, old records reviewed Medical history: cancer, CVA, hyperlipidemia, hypertension Psychiatric history: depression - Social History Smoking Status: Former smoker Smokeless Tobacco Status: No Alcohol use: none Drug use: none - Additional Family History Additional family history: Reviewed and found to be noncontributory at this time Internal Medicine - H&P: Meds Atorvastatin [Lipitor] 40 mg PO DAILY 12/02/14 [History] BuPROPion SR (12 HR) [Wellbutrin SR] 300 mg PO DAILY 05/15/16 [History] Amlodipine [Norvasc] 5 mg PO DAILY #30 tablet 05/19/16 [Rx] Lidocaine/Prilocaine CREAM [Emla] 1 appl TP PRN PRN #1 tube 05/27/16 [Rx] Omeprazole [PriLOSEC] 20 mg PO DAILY #30 cap 05/27/16 [Rx] Ondansetron HCl [Zofran] 4 mg PO Q6H PRN #30 tablet 05/27/16 [Rx] Prochlorperazine Maleate [Compazine] 10 mg PO Q6HR PRN #60 tablet 05/27/16 [Rx] Acetaminophen [Tylenol] 650 mg PO Q6HR PRN #0 tablet 06/03/16 [Rx] Alprazolam [Xanax 0.25 MG Tablet] 0.25 mg PO HS PRN #20 tablet 06/03/16 [Rx] Aspirin 81 mg PO DAILY tab.chew 06/03/16 [Rx] MOM Conc [Milk of Magnesia Conc] 10 ml PO DAILY PRN #30 mls 06/03/16 [Rx] Polyethylene Glycol 3350 [MiraLAX Powder Bulk 17.9 Oz] 1 scoop PO DAILY #510 gm 06/14/16 [Rx] Oxycodone HCl [Oxaydo] 5 mg PO Q4H PRN #84 tablet.orl 07/06/16 [Rx] Allopurinol [Zyloprim 300 MG] 300 mg PO DAILY #30 tablet 07/11/16 [Rx] Megestrol Acetate [Megace] 10 ml PO DAILY #300 mls 07/11/16 [Rx] Diltiazem CD (24hr) [Cardizem CD] 120 mg PO DAILY 07/13/16 [History] Silver Sulfadiazine [Silvadene] 1 appl TP BID #1 cream..g. 07/13/16 [Rx] Ipratropium/Albuterol Neb [Duoneb] 3 ml IH [id number] PRN 07/21/16 [History] Allergies No Known Allergies Allergy (Verified 07/13/16 08:41) All Systems PM: A 10-system review of systems was performed and is negative for pertinent findings except as documented above in the HPI. - Constitutional Constitutional: fatigue, malaise, no chills, no fever(s), no night sweats - EENT Eyes: no change in vision, no discharge, no pain, no photophobia Ears: no ear discharge, no ear pain, no tinnitus Nose, mouth and throat: no dysphagia, no nasal discharge, no neck pain, no sore throat - Cardiovascular Cardiovascular ROS IM: no chest pain, no diaphoresis, no dyspnea, no lightheadedness, no palpitations, no syncope - Respiratory Respiratory: cough, no dyspnea, no wheezing, no excessive phlegm production - Gastrointestinal Gastrointestinal: no abdominal pain, no diarrhea, no hematemesis, no hematochezia, no melena, no nausea, no vomiting - Musculoskeletal Musculoskeletal ROS IM: no numbness, no tingling - Integumentary Integumentary IM: no rash, no unusual bruising - Neurological Neurological ROS: no confusion, no convulsions, no focal weakness, no numbness, no tingling, no tremor(s) - Hematologic/Lymphatic Hematologic/Lymphatic: no easy bruising - Constitutional Vitals: Temp Pulse Resp BP Pulse Ox 97.7 F 111 16 144/102 95 07/21/16 17:27 07/21/16 17:27 07/21/16 17:27 07/21/16 17:27 07/21/16 17:27 General appearance: Present: cooperative, A&O X 3, pleasant, underweight, answers questions appropriately - Eye Eye exam: Present: EOMI, PERRL, conjuntiva pink, sclera anicteric - Neck Neck exam general surgery: Present: supple, trachea midline. Absent: lymphadenopathy - Respiratory Respiratory exam: Absent: accessory muscle use, rales, rhonchi, wheezes Additional comments: Coarse breath sounds over the right lung - Cardiovascular Cardiovascular exam: Present: RRR, +S1, +S2. Absent: diastolic murmur, gallop, rubs, systolic murmur - GI/Abdominal GI/Abdominal exam: Present: normal bowel sounds, soft, no peritoneal signs. Absent: distended, tenderness - Extremities Exam Extremities exam: Present: warm, radial pulses palpable and symetrical. Absent : calf tenderness, cyanotic, pedal edema - Neurological Exam Neurological exam: Present: CN II-XII intact, oriented X3, no focal deficits. Absent: facial droop, speech deficit - Skin Skin exam: Present: dry, intact Internal Med - H&P Results - Labs CBC & Chem 7: 07/21/16 13:18 07/21/16 13:18 - Impressions Impressions Head CT 07/21/16 12:27 IMPRESSION: No acute intracranial abnormality. D/ / Buster Parikh MD / Buster Parikh MD Interpreting Provider: Buster Parikh MD Chest X-Ray 07/21/16 12:38 IMPRESSION: Increasing size of the large right infrahilar mass and right paratracheal prominence suggesting progression of primary malignancy and progression of metastatic lymphadenopathy compared to prior examination. D/ / Herson Kincaid MD / Herson Kincaid MD Interpreting Provider: Herson Kincaid MD - Attending Attestation This document has been at least partially created by [employer] recognition technology by Dr. Whitmore. Errors in grammar, wording or other phrases may exist. If errors are found after the documentation is signed, they will be addressed individually in the addendum section of this document when appropriate.
--- NOTE | 2016-07-21 18:15 | Oncology Inp Consult Note ---
<Mitchel Alonzo Jr - Last Filed: 07/21/16 18:21> Date of Encounter: 07/21/16 Time of Encounter: 17:15 Assessment and Plan (1) Small cell carcinoma of right lung Status: Chronic Assessment and plan: This is a 71 year old male, well known to [facility] cared for by Dr Stephane Sherman. Metatstaic small cell lung cancer to the liver. Treatment is palliative with cisplatin 60 mg/m day 1 and etoposide 60 mg/m day 1-3 with Neulasta day 4. First cycle of chemo 06/08/16, 2 days of chemotherapy etoposide to minimize tumor lysis syndrome. Started allopurinol 300 mg by mouth at bedtime for 30 days. Cycle 2 was 06/28/16, and he received all 3 days of treatment. Neulasta day 4. Patient wants aggressive treatment and not hospice on last visit. Last seen by me at [facility] on 07/13/18. He needs supportive care between chemo treatments. IV fluids and gse mechanic support. He has 2 decubitus ulcers treated at this last appointment with [facility]. Stage 1-2 on sacrum and right buttock. He comes in with increasing weakness, altered mental status and confusion. This could be related to chemo brain syndrome, or his severe protein malnutrition. We should consider toxic metabolic encephelopathy due to infection. Oncology Recommendations: IV fluids IV rocephin to cover skin infection. Blood cultures, UA reflexive. Home oxycodone pain medication for now. Wound consult Nutrition consult with ensure clear. He does not like ensure, boost, glucerna Palliative care consult for symptom management of constipation and pain. Goals of care discussion. Specialty air mattress due to cachexia and skin breakdown Pastoral consult Miralax as directed. Dr Sherman vocational education teacher, and agrees with plan. He will assess patient as well. We will follow along (2) Metastatic small cell carcinoma to liver Status: Acute (3) Weakness Status: Acute (4) Constipation by delayed colonic transit Status: Acute (5) Nutrient intake below expected requirement Status: Acute (6) Protein-calorie malnutrition Status: Acute - Data of Consult Requesting Physician: Yaron Christiansen MD Primary Care Provider: Bonita Mayberry-Fis - Consult Narrative Reason for consult: lung cancer on chemo with AMS and weakness History of present illness: Mr. Wilburn is a 71 year old male well known to [facility] with a diagnosis of Metastatic small cell lung cancer, T4, N3, M1 stage IV with right lung mass and bilateral supraclavicular and mediastinal adenopathy. He has widespread liver metastasis. Diffuse bony metastasis He is seen by Dr Sherman. History of present illness: Mr. Wilburn is a 70 year old male treated with nausea and vomiting. 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 Otherwise negative CT chest on 05/15/2016 showed right suprahilar mass posteriorly located 6.5 cm craniocaudal by 4 cm. There are some adjoining satellite nodule close to the mass. Left Hilar adenopathy. The mass does constrict the pulmonary artery left side Diffuse thickening left adrenal gland. Also palpable right supraclavicular lymph node Bronchoscopy biopsy of right upper lobe on 05/18/2016 showed small cell lung cancer CK 7 positive. TTF-1 and negative. Synaptophysin focally positive. CAM 5.2 positive He is fairly asymptomatic with no shortness of breath, but generalized weakness Hospitalized with a atrial flutter rapid ventricular rate. He went back to sinus rhythm discharge 06/02/2016 to [facility]. Treatment is palliative with cisplatin 60 mg/m day 1 and etoposide 60 mg/m day 1-3 with Neulasta day 4. First cycle of chemo 06/08/16, 2 days of chemotherapy etoposide to minimize tumor lysis syndrome. Started allopurinol 300 mg by mouth at bedtime for 30 days. Cycle 2 was 06/28/16, and he received all 3 days of treatment. Neulasta day 4. Last seen at [facility] on 07/13/16. At that time, he had 5lb weight loss and generalized weakness. He was given IV fluids, 1 liter NS over 2 hours and seen by gse mechanic will see him today during IV fluid infusion. He had skin ulcers on right buttock and sacrum and was prescribed allevyn and silvadene cream. He went to ER on 07/21/16 for weakness and altered mental status. Oncology consulted for recommendations. Past Med Surg Social Fam HX - Past Medical History Medical history: cancer, CVA, hyperlipidemia, hypertension Psychiatric history: depression - Social History Smoking Status: Former smoker Smokeless Tobacco Status: No Alcohol use: none Drug use: none Medications and Allergies Atorvastatin [Lipitor] 40 mg PO DAILY 12/02/14 [History] BuPROPion SR (12 HR) [Wellbutrin SR] 300 mg PO DAILY 05/15/16 [History] Amlodipine [Norvasc] 5 mg PO DAILY #30 tablet 05/19/16 [Rx] Lidocaine/Prilocaine CREAM [Emla] 1 appl TP PRN PRN #1 tube 05/27/16 [Rx] Omeprazole [PriLOSEC] 20 mg PO DAILY #30 cap 05/27/16 [Rx] Ondansetron HCl [Zofran] 4 mg PO Q6H PRN #30 tablet 05/27/16 [Rx] Prochlorperazine Maleate [Compazine] 10 mg PO Q6HR PRN #60 tablet 05/27/16 [Rx] Acetaminophen [Tylenol] 650 mg PO Q6HR PRN #0 tablet 06/03/16 [Rx] Alprazolam [Xanax 0.25 MG Tablet] 0.25 mg PO HS PRN #20 tablet 06/03/16 [Rx] Aspirin 81 mg PO DAILY tab.chew 06/03/16 [Rx] MOM Conc [Milk of Magnesia Conc] 10 ml PO DAILY PRN #30 mls 06/03/16 [Rx] Polyethylene Glycol 3350 [MiraLAX Powder Bulk 17.9 Oz] 1 scoop PO DAILY #510 gm 06/14/16 [Rx] Oxycodone HCl [Oxaydo] 5 mg PO Q4H PRN #84 tablet.orl 07/06/16 [Rx] Allopurinol [Zyloprim 300 MG] 300 mg PO DAILY #30 tablet 07/11/16 [Rx] Megestrol Acetate [Megace] 10 ml PO DAILY #300 mls 07/11/16 [Rx] Diltiazem CD (24hr) [Cardizem CD] 120 mg PO DAILY 07/13/16 [History] Silver Sulfadiazine [Silvadene] 1 appl TP BID #1 cream..g. 07/13/16 [Rx] Ipratropium/Albuterol Neb [Duoneb] 3 ml IH [id number] PRN 07/21/16 [History] Allergies No Known Allergies Allergy (Verified 07/13/16 08:41) All systems: reviewed and no additional remarkable complaints except as stated Constitutional: Present: anorexia, daytime sleepiness, fatigue, lethargy, malaise Integumentary: Present: dry skin, non-healing lesions, skin ulcer (buttock and sacrum) Neurological: Present: abnormal gait, confusion, lack of coordination, weakness Oncology - Exam - Constitutional Vitals: Temp Pulse Resp BP Pulse Ox 97.7 F 111 16 144/102 95 07/21/16 17:27 07/21/16 17:27 07/21/16 17:27 07/21/16 17:27 07/21/16 17:27 General appearance: cooperative, mild distress (from skin ulcer pain and back pain) - Head Head exam: Present: atraumatic, normal inspection - Eye Eye exam: Present: normal appearance, PERRL - ENT ENT exam: Present: mucous membranes dry - Neck Neck exam: Present: full ROM, normal inspection - Respiratory Respiratory exam: Present: CTAB - Cardiovascular Cardiovascular exam: Present: RRR, +S1, +S2 - GI/Abdominal GI/Abdominal exam: Present: hypoactive bowel sounds, soft - Extremities Exam Extremities exam: Present: full ROM, normal inspection - Back Exam Back exam: Present: tenderness - Neurological Exam Neurological exam: Present: alert, oriented X3, no focal deficits - Psychiatric Psychiatric exam: Present: anxious - Skin Skin exam: Present: abrasion (sacral ulcer and right buttock ulcer 1 cm or less , stage 2), dry, warm Consult Discharge Plan - Plan Referrals: Bonita Xavier MD [Primary Care Provider] - 07/29/16 2:00 pm <Stephane Sherman S - Last Filed: 07/22/16 19:45> Date of Encounter: 07/22/16 - Data of Consult Requesting Physician: Yaron Christiansen MD Primary Care Provider: Bonita Thomson - Consult Narrative History of present illness: Mr. Wilburn is a 71 year old male Oncology - Exam - Constitutional Vitals: Temp Pulse Resp BP Pulse Ox 98.0 F 105 18 138/88 96 07/22/16 19:38 07/22/16 19:38 07/22/16 19:38 07/22/16 19:38 07/22/16 19:38 Oncology - Results - Labs Labs: Short CBC 07/22/16 Range/Units 03:31 WBC 21.3 H (4.3-11.1) K/mcL Hgb 9.2 L D (12.9-16.9) g/dL Hct 27.2 L (37.5-50.1) % Plt Count 278 (140-400) K/mcL Neutrophils # 19.1 H (1.6-8.9) K/mcL BMP 07/22/16 03:31 Sodium 136 Potassium 3.6 D Chloride 98 Carbon Dioxide 25 BUN 23 Creatinine 0.68 L Glucose 49 L Calcium 8.0 L Urine 07/22/16 Range/Units 02:15 Urine Color Yellow (Yellow) Urine Clarity Clear (Clear) Urine pH 6.5 (5.0-8.0) pH Units Ur Specific [place] 1.012 (1.010-1.025) Urine Protein Trace (Neg-Trace) mg/dL Urine Glucose (UA) Normal (Normal) mg/dL - Attending Attestation 1. Stage IV small cell carcinoma with metastasis to liver Status post 2 cycles of chemotherapy as mentioned. With Neulasta support 2. Persistent leukocytosis. Unlikely from Neulasta. Grade with antibiotic coverage. Currently on cefepime IV and vancomycin IV Dates of blood cultures negative Has grade 2 decubitus ulcer 3. Anemia, (hemoglobin 9.2) from chemotherapy 4. Dehydration improved with IV fluids
[2016-07-21] MEDS: 0.9 % Sodium Chloride 1,000 ML IVC SCH (18:42)
[2016-07-21] MEDS ORDERED: Ondansetron 4 MG/2 ML VIAL IVP PRN (18:46)
[2016-07-21] MEDS: ALPRAZolam 0.25 MG TABLET PO PRN (21:29)
[2016-07-22 02:42] LABS: Bilirubin,Urine Negative (Negative); Blood,Urine Trace (Negative); Clarity,Urine Clear (Clear); Color,Urine Yellow (Yellow); Glucose,Urine (UA) Normal (Normal); Ketones,Urine Negative (Negative); Leukocyte Esterase,Urine Negative (Negative); Nitrite,Urine Negative (Negative); PH,Urine 6.5 pH Units (5.0-8.0); Protein,Urine Trace mg/dL (Neg-Trace); Specific Gravity,Urine 1.012 (1.010-1.025); Urobilinogen,Urine Normal (Normal)
[2016-07-22 02:45] LABS: Bacteria,Urine None Seen per hpf (None-Few); Hyaline Casts,Urine None Seen per lpf (None-Few); RBC,Urine 0-3 per hpf (0-3); Squamous Epithelial Cell,Urine Few per lpf (None-Few); WBC,Urine 0-3 per hpf (0-3)
[2016-07-22] MEDS: *HR* OxyCODONE Immed Rel 5 MG TABLET PO PRN ×2 (03:50→20:47)
[2016-07-22 04:48] LABS: Basophils % 0.1 %; Hematocrit 27.2 % (37.5-50.1); Hemoglobin 9.2 g/dL (12.9-16.9); Lymphocytes # 1.6 K/mcL (0.6-4.6); Lymphocytes % 7.5 %; Mean Corpuscular HGB Conc 33.8 g/dL (31.6-35.5); Mean Corpuscular Hemoglobin 31.7 pg (28.0-33.3); Mean Corpuscular Volume 93.8 fL (83.0-100.0); Mean Platelet Volume 10.3 fL (9.4-12.4); Monocytes # 0.4 K/mcL (0.0-1.3); Monocytes % 1.8 %; Neutrophils # 19.1 K/mcL (1.6-8.9); Platelet Count 278 K/mcL (140-400); Red Cell Distribution Width 18.3 % (11.5-14.5); Segmented Neutrophils % 89.6 %
[2016-07-22 04:57] LABS: BUN/Creatinine Ratio 34 (6-26); Blood Urea Nitrogen 23 mg/dL (8-26); Carbon Dioxide 25 mEq/L (19-29); Chloride 98 mEq/L (98-109); Glucose 49 mg/dL (70-99); Osmolality,Calculated 283 (280-300); Potassium 3.6 mEq/L (3.5-4.5); Sodium 136 mEq/L (136-145); eGFR For African Americans > 60 (> 60); eGFR For Non-African Americans > 60 (> 60)
--- NOTE | 2016-07-22 10:31 | Internal Med Progress Note ---
<Adrian Galicia - Last Filed: 07/22/16 10:32> Date of Encounter: 07/22/16 Time of Encounter: 10:24 - Assessment and plan (1) Sepsis Current Visit: Yes Status: Acute Assessment and plan: Possible sepsis. Denita presents with Leukocytosis and tachycardia. Afebrile. However he was dehydrated which may account for the tachycardia. Leukocytosis could possibly be from neulasta. However with a half life of 15-80 hours and last dose appears to have been given on 07/01/16. Possible sources would include skin as he has sacral wounds. Would also consider abdominal source as he is having some LLQ pain. Blood cultures and cultures from port were sent. I have ordered a lactic acid. Will consider broadening coverage as he is a frail patient on chemotherapy and at higher risk. we can deescalate once we have more culture data and CT scan results. I will discuss with my attending. Currently hemodynamically stable. Looks uncomfortable but not overtly toxic, continue IV fluids. Qualifiers: Qualified Code(s): A41.9 - Sepsis, unspecified organism (2) Small cell lung cancer Current Visit: Yes Status: Acute Assessment and plan: currently on chemotherapy Oncology following. (3) Leukocytosis Current Visit: Yes Status: Acute Assessment and plan: as stated above (4) Abdominal pain Current Visit: Yes Status: Acute Assessment and plan: concerning with possible sepsis and history of AAA. CT of the abdomen and pelvis ordered stat. (5) Abdominal aortic aneurysm (AAA) 3.0 cm to 5.5 cm in diameter in male Current Visit: Yes Status: Acute Assessment and plan: 5.5 cm on PET scan will reevaluate with CT abdomen. (6) Constipation Current Visit: Yes Status: Acute Assessment and plan: hold off on adding anything until after CT results. (7) Dehydration Current Visit: Yes Status: Acute Assessment and plan: continue IVF (8) Metabolic encephalopathy Current Visit: Yes Status: Acute Assessment and plan: resolved. (9) Paroxysmal a-fib Current Visit: Yes Status: Acute Assessment and plan: currently above goal. 90-s to low 100s. However should have just received his cardizem. Will continue to monitor. No AC as he has history of intracranial bleed and is a fall risk. (10) DVT prophylaxis Current Visit: Yes Status: Acute Assessment and plan: High risk I will put him on lovenox - Subjective Interval history: Mr. Wilburn is a 71 y.o. 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 Currently on chemotherapy with cisplatin and etopisode. He was admitted overnight for dehydration, FTT, and confusion. Today Mr. Johnson is alert and fully orientated. He repeats multiple times that he just feels unwell. He complain of abdominal pain. He states he has not had a bowel movement for over a week. HE denies cough, wheeze, dyspnea, hemoptysis. He denies any other complaints or concerns at this time. - Constitutional Vitals: Temp Pulse Resp BP Pulse Ox 97.8 F 114 16 146/82 94 07/22/16 07:47 07/22/16 07:47 07/22/16 07:47 07/22/16 07:47 07/22/16 07:47 General appearance: Present: cooperative, A&O X 3, pleasant, underweight, answers questions appropriately - Head Head exam: Present: atraumatic, normal inspection, normocephalic - Eye Eye exam: Present: PERRL, conjuntiva pink, sclera anicteric Pupils: Present: PERRL - ENT ENT exam: Present: mucous membranes dry - Neck Neck exam general surgery: Present: supple, trachea midline. Absent: lymphadenopathy - Respiratory Respiratory exam: Present: CTAB, wheezes (mild expiratory wheezes on the left ) . Absent: accessory muscle use, rales, rhonchi - Cardiovascular Cardiovascular exam: Present: RRR, +S1, +S2, tachycardia (mild rate 90-low 100s while in room. ). Absent: diastolic murmur, gallop, rubs, systolic murmur - GI/Abdominal GI/Abdominal exam: Present: normal bowel sounds, soft, tenderness (LLQ), no peritoneal signs. Absent: distended - Extremities Exam Extremities exam: Present: warm, radial pulses palpable and symetrical. Absent : calf tenderness, cyanotic, pedal edema - Skin Skin exam: Present: dry, intact Internal Medicine: Result - Labs CBC & Chem 7: 07/22/16 03:31 07/22/16 03:31 Labs: Short CBC 07/22/16 Range/Units 03:31 WBC 21.3 H (4.3-11.1) K/mcL Hgb 9.2 L D (12.9-16.9) g/dL Hct 27.2 L (37.5-50.1) % Plt Count 278 (140-400) K/mcL Neutrophils # 19.1 H (1.6-8.9) K/mcL [facility] 07/22/16 03:31 Sodium 136 Potassium 3.6 D Chloride 98 Carbon Dioxide 25 BUN 23 Creatinine 0.68 L Glucose 49 L Calcium 8.0 L Urine 07/22/16 Range/Units 02:15 Urine Color Yellow (Yellow) Urine Clarity Clear (Clear) Urine pH 6.5 (5.0-8.0) pH Units Ur Specific [place] 1.012 (1.010-1.025) Urine Protein Trace (Neg-Trace) mg/dL Urine Glucose (UA) Normal (Normal) mg/dL Consult Discharge Plan - Plan Referrals: Bonita Xavier MD [Primary Care Provider] - 07/29/16 2:00 pm <Yaron Christiansen - Last Filed: 07/22/16 19:15> Date of Encounter: 07/22/16 - Constitutional Vitals: Temp Pulse Resp BP Pulse Ox 97.3 F L 111 18 148/76 97 07/22/16 14:52 07/22/16 14:52 07/22/16 14:52 07/22/16 14:52 07/22/16 14:52 Internal Medicine: Result - Labs CBC & Chem 7: 07/22/16 03:31 07/22/16 03:31 Labs: Short CBC 07/22/16 Range/Units 03:31 WBC 21.3 H (4.3-11.1) K/mcL Hgb 9.2 L D (12.9-16.9) g/dL Hct 27.2 L (37.5-50.1) % Plt Count 278 (140-400) K/mcL Neutrophils # 19.1 H (1.6-8.9) K/mcL [facility] 07/22/16 03:31 Sodium 136 Potassium 3.6 D Chloride 98 Carbon Dioxide 25 BUN 23 Creatinine 0.68 L Glucose 49 L Calcium 8.0 L Urine 07/22/16 Range/Units 02:15 Urine Color Yellow (Yellow) Urine Clarity Clear (Clear) Urine pH 6.5 (5.0-8.0) pH Units Ur Specific [place] 1.012 (1.010-1.025) Urine Protein Trace (Neg-Trace) mg/dL Urine Glucose (UA) Normal (Normal) mg/dL - Impressions Impressions Abdomen/Pelvis CT 07/22/16 09:59 IMPRESSION: 1. Interval progression of intrahepatic metastatic disease. 2. Interval development of a new mild amount of ascites within the perihepatic space extending along the right pericolic gutter into the pelvis. The ascites is somewhat high in attenuation and may be hemorrhagic. This could reflect malignant ascites. 3. Small right pleural effusion with persistent bulky metastatic right hilar lymphadenopathy, partially visualized. There are stable nodular densities within the anterior right lung base, also consistent with intrapulmonary metastatic disease. 4. Stable small pericardial effusion. 5. New nonspecific 1.2 x 0.7 cm exophytic nodule off the posterior aspect of the left kidney lower pole. Suggest initial characterization of this abnormality with a follow-up renal ultrasound, with further workup pending ultrasound results. 6. Stable metastatic rena hepatic lymphadenopathy. 7. Stable 5.5 cm infrarenal AAA, without evidence of rupture. Further follow-up of this abnormality is as suggested below. 8. Stable osseous metastatic disease. RECOMMENDATIONS: Managing Abdominal Aortic Aneurysms Greater than or equal to 5.5 cm: Referral to vascular surgeon. Reference: Adeline et al. The care of patients with an abdominal aortic aneurysm: The Society of Vascular Surgery practice guidelines. Journal of Vascular Surgery. Vol 50, Number 85. Oskar et al. Managing Incidental Findings on Abdominal and Pelvic CT and MRI, Part 2: White Paper of the ACR Incidental Findings Committee II on Vascular Findings. J Am Lisa Radiol 2013;10:789-794 D/ / 07/22/2016 11:31:56 Leonid Gu MD / Radha Valle Interpreting Provider: Leonid Gu MD - Attending Attestation I examined this patient and my medical decision-making was reviewed with the Resident Physician. I agree with the documented findings, disposition and treatment plan as described except to the extent set forth below. Patient reports cough and shortness of breath. He has had chronic constipation. On exam he is a frail ill-appearing elderly man in no acute distress. Heart is irregular S1 and S2. Lungs with coarse breath sounds bilaterally. We will continue with cefepime and vancomycin. Follow-up cultures. De- escalate if negative.
[2016-07-22] MEDS: 0.9 % Sodium Chloride 1,000 ML IVC SCH ×2 (11:03→22:45)
[2016-07-22] MEDS: Diltiazem CD (24hr) 120 MG CAPSULE PO SCH (11:03)
[2016-07-22] MEDS ORDERED: Vancomycin 750 MG in D5% in Water 250 ML IVPB SCH (12:00)
[2016-07-22] MEDS: Vancomycin 750 MG in D5% in Water 250 ML IVPB SCH (13:53)
[2016-07-22] MEDS: Silver Sulfadiazine 50 GM TUBE TP SCH (13:56)
[2016-07-22] MEDS: Cefepime HCl 1,000 MG in D5% in Water (Mini-Bag+) 100 ML IVPB SCH (16:44)
[2016-07-22] MEDS: Sennosides/Docusate Sodium TABLET PO SCH (20:45)
[2016-07-23] MEDS: Cefepime HCl 1,000 MG in D5% in Water (Mini-Bag+) 100 ML IVPB SCH ×3 (01:01→17:43)
[2016-07-23 03:52] LABS: Basophils % 0.1 %; Hematocrit 26.2 % (37.5-50.1); Immature Granulocytes % 0.9 % (0-4); Immature Reticulocyte % 6.1 % (11.0-38.0); Lymphocytes # 1.3 K/mcL (0.6-4.6); Lymphocytes % 6.4 %; Mean Corpuscular HGB Conc 34.4 g/dL (31.6-35.5); Mean Corpuscular Hemoglobin 31.7 pg (28.0-33.3); Mean Corpuscular Volume 92.3 fL (83.0-100.0); Mean Platelet Volume 9.5 fL (9.4-12.4); Monocytes # 0.2 K/mcL (0.0-1.3); Neutrophils # 18.1 K/mcL (1.6-8.9); Platelet Count 209 K/mcL (140-400); Red Blood Count 2.84 M/mcL (4.19-5.50); Red Cell Distribution Width 17.5 % (11.5-14.5); Retculocyte # 0.01 M/mcL (0.05-0.10); Reticulocyte % 0.5 % (1.6-2.8); Segmented Neutrophils % 91.6 %
[2016-07-23 04:02] LABS: % Iron Saturation 93 % (20-55); BUN/Creatinine Ratio 29 (6-26); Blood Urea Nitrogen 18 mg/dL (8-26); Calcium 7.9 mg/dL (8.6-10.8); Carbon Dioxide 24 mEq/L (19-29); Chloride 96 mEq/L (98-109); Glucose 64 mg/dL (70-99); Iron 137 mcg/dL (65-175); Osmolality,Calculated 278 (280-300); Sodium 134 mEq/L (136-145); Transferrin 105 mg/dL (174-364); eGFR For African Americans > 60 (> 60); eGFR For Non-African Americans > 60 (> 60)
[2016-07-23 04:37] LABS: Folate 5.8 ng/mL (7.0-31.4)
[2016-07-23 04:55] LABS: Ferritin 4891 ng/ml (22-275)
[2016-07-23] MEDS: *HR* Enoxaparin 30 MG/0.3 ML SYRINGE SQ SCH (06:54)
[2016-07-23] MEDS: Diltiazem CD (24hr) 120 MG CAPSULE PO SCH (07:44)
[2016-07-23] MEDS: Sennosides/Docusate Sodium TABLET PO SCH ×2 (07:44→20:55)
[2016-07-23] MEDS: 0.9 % Sodium Chloride 1,000 ML IVC SCH ×2 (07:46→17:42)
[2016-07-23] MEDS ORDERED: *HR* Metoprolol 5 MG/5 ML VIAL IVP PRN (07:55)
[2016-07-23] MEDS ORDERED: Dextrose Gel 15 GM PO PRN ×2 (07:58)
[2016-07-23] MEDS ORDERED: D5% in Water 1,000 ML IVC PRN (07:58)
[2016-07-23] MEDS ORDERED: *HR* Dextrose 50 % in Water (Syg) 50 ML SYRINGE IVP PRN (07:58)
[2016-07-23] MEDS: Silver Sulfadiazine 50 GM TUBE TP SCH (09:00)
[2016-07-23] MEDS ORDERED: Aminoglycoside Consult 1 EACH MC ONE (09:23)
[2016-07-23] MEDS: Potassium Chloride Elixir 20 MEQ/15 ML UDC PO SCH ×2 (10:19→20:56)
[2016-07-23] MEDS: ALPRAZolam 0.25 MG TABLET PO PRN ×2 (10:19→23:00)
[2016-07-23] MEDS: Vancomycin 750 MG in D5% in Water 250 ML IVPB SCH (16:11)
[2016-07-23] MEDS: *HR* OxyCODONE Immed Rel 5 MG TABLET PO PRN (16:12)
--- NOTE | 2016-07-23 17:33 | Internal Med Progress Note ---
<Adrian Galicia - Last Filed: 07/23/16 17:29> Date of Encounter: 07/23/16 Time of Encounter: 11:15 - Assessment and plan (1) Sepsis Current Visit: Yes Status: Acute Assessment and plan: Possible sepsis. Denita presents with Leukocytosis and tachycardia. Afebrile. However he was dehydrated which may account for the tachycardia. Leukocytosis could possibly be from neulasta. However with a half life of 15-80 hours and last dose appears to have been given on 07/01/16. Possible sources would include skin as he has sacral wounds. Would also consider abdominal source as he is having some LLQ pain. Blood cultures and cultures from port were sent. I have ordered a lactic acid. Will consider broadening coverage as he is a frail patient on chemotherapy and at higher risk. we can deescalate once we have more culture data and CT scan results. I will discuss with my attending. Currently hemodynamically stable. Looks uncomfortable but not overtly toxic, continue IV fluids. 07/23/16 patient appears to be improving clinically. CT was negative for source of infection. WBC trending down. appreciate Oncologies input on Neulasta. Leukocytosis is likely not from Neulasta. Source is likely from Stage 2 sacral decubitus ulcer. Continue the patient on broad spectrum antibiotics with Vancomycin and Cefepime. If no growth tomorrow and the patient continues to improve we will consider deescalating. Qualifiers: Qualified Code(s): A41.9 - Sepsis, unspecified organism (2) Small cell lung cancer Current Visit: Yes Status: Acute Assessment and plan: currently on chemotherapy Oncology following. (3) Leukocytosis Current Visit: Yes Status: Acute Assessment and plan: as stated above (4) Abdominal pain Current Visit: Yes Status: Resolved Assessment and plan: resolved. (5) Abdominal aortic aneurysm (AAA) 3.0 cm to 5.5 cm in diameter in male Current Visit: Yes Status: Acute Assessment and plan: Infrarenal 5.5 cm AAA. stable Asymptomatic at this time. Given the patients malignancy may consider no repair versus possible EVAR. Currently he is asymptomatic. Additionally patient is septic. Would recommend outpatient Vascular surgical consultation to discuss patients options. (6) Constipation Current Visit: Yes Status: Resolved Assessment and plan: Resolved (7) Dehydration Current Visit: Yes Status: Acute Assessment and plan: continue IVF (8) Metabolic encephalopathy Current Visit: Yes Status: Acute Assessment and plan: Likely from a combination of chemotherapy, infection, and dehydration. Only mild confusion at this time. continue to treat underlying causes. May consider further imaging if he worsens. He is scheduled for repeat PET scan next week per his Daughter. (9) Paroxysmal a-fib Current Visit: Yes Status: Acute Assessment and plan: currently above goal. 90-s to low 100s. Continue cardizem. i have added a PRN beta bc. Will continue to monitor. No anticoagulation as he has history of intracranial bleed and is a fall risk. (10) DVT prophylaxis Current Visit: Yes Status: Acute Assessment and plan: High risk I will continue him on lovenox (11) Anemia Current Visit: Yes Status: Acute Assessment and plan: likely from chemotherapy. continue to monitor Replace folate. (12) Hypomagnesemia Current Visit: Yes Status: Acute Assessment and plan: replace (13) Hypokalemia Current Visit: Yes Status: Acute Assessment and plan: replace. - Subjective Interval history: Mr. Wilburn is a an exceptionally poleassant 71 y.o. 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 Currently on chemotherapy with cisplatin and etopisode. He was admitted overnight for dehydration, FTT, and confusion. I had the pleasure of seeing him today and also speaking with his daughter who was at bedside. Today Mr. Johnson is alert and fully orientated. However he has had some confusion this AM. The daughter stated that he called her this AM and was confused when on the phone. He states that he is feeling better but feels that he is still "Ill" He had relief of his abdominal pain and as had a formed bowel movement this AMHE denies cough, wheeze, dyspnea, hemoptysis. He states that he feels that his feet are starting to swell. He denies any other complaints or concerns at this time. - Constitutional Vitals: Temp Pulse Resp BP Pulse Ox 99.0 F 110 18 119/62 95 07/23/16 15:00 07/23/16 15:00 07/23/16 15:00 07/23/16 15:00 07/23/16 15:00 General appearance: Present: cachectic, cooperative, A&O X 3, pleasant, underweight, answers questions appropriately - Head Head exam: Present: atraumatic, normal inspection, normocephalic - Eye Eye exam: Present: PERRL, conjuntiva pink, sclera anicteric Pupils: Present: PERRL - ENT ENT exam: Present: mucous membranes moist, normal exam, normal oropharynx - Neck Neck exam general surgery: Present: supple, trachea midline. Absent: lymphadenopathy - Respiratory Respiratory exam: Present: CTAB. Absent: accessory muscle use, rales, rhonchi, wheezes Additional comments: port in place right anterior chest wall. - Cardiovascular Cardiovascular exam: Present: RRR, +S1, +S2, tachycardia. Absent: diastolic murmur, gallop, rubs, systolic murmur - GI/Abdominal GI/Abdominal exam: Present: normal bowel sounds, soft, no peritoneal signs. Absent: distended, tenderness - Extremities Exam Extremities exam: Present: pedal edema (minimal), warm, radial pulses palpable and symetrical. Absent: calf tenderness, cyanotic - Skin Skin exam: Present: dry, intact Internal Medicine: Result - Labs CBC & Chem 7: 07/23/16 03:30 07/23/16 03:30 Labs: Short CBC 07/23/16 Range/Units 03:30 WBC 19.7 H (4.3-11.1) K/mcL Hgb 9.0 L (12.9-16.9) g/dL Hct 26.2 L (37.5-50.1) % Plt Count 209 (140-400) K/mcL Neutrophils # 18.1 H (1.6-8.9) K/mcL BMP 07/23/16 03:30 Sodium 134 L Potassium 3.0 L Chloride 96 L Carbon Dioxide 24 BUN 18 Creatinine 0.62 L Glucose 64 L Calcium 7.9 L - Impressions Impressions Abdomen/Pelvis CT 07/22/16 09:59 IMPRESSION: 1. Interval progression of intrahepatic metastatic disease. 2. Interval development of a new mild amount of ascites within the perihepatic space extending along the right pericolic gutter and into the pelvis. The ascites is somewhat high in attenuation and may be hemorrhagic. This could reflect malignant ascites. 3. Small right pleural effusion with persistent bulky metastatic right hilar lymphadenopathy, partially visualized. There are stable nodular densities within the anterior right lung base, also consistent with intrapulmonary metastatic disease. 4. Stable small pericardial effusion. 5. New nonspecific 1.2 x 0.7 cm exophytic nodule off the posterior aspect of the left kidney lower pole. Suggest initial characterization of this abnormality with a follow-up renal ultrasound, with further workup pending ultrasound results. 6. Stable metastatic rena hepatic lymphadenopathy. 7. Stable 5.5 cm infrarenal AAA, without evidence of rupture. Further follow-up of this abnormality is as suggested below. 8. Stable osseous metastatic disease. RECOMMENDATIONS: Managing Abdominal Aortic Aneurysms Greater than or equal to 5.5 cm: Referral to vascular surgeon. Reference: Adeline et al. The care of patients with an abdominal aortic aneurysm: The Society of Vascular Surgery practice guidelines. Journal of Vascular Surgery. Vol 50, Number 85. Oskar et al. Managing Incidental Findings on Abdominal and Pelvic CT and MRI, Part 2: White Paper of the ACR Incidental Findings Committee II on Vascular Findings. J Am Lisa Radiol 2013;10:789-794 D/ / 07/22/2016 11:31:56 Leonid Gu MD / Radha Valle Interpreting Provider: Leonid Gu MD Consult Discharge Plan - Plan Referrals: Bonita Xavier MD [Primary Care Provider] - 07/29/16 2:00 pm <Yaron Christiansen - Last Filed: 07/23/16 18:31> Date of Encounter: 07/23/16 - Constitutional Vitals: Temp Pulse Resp BP Pulse Ox 99.0 F 110 18 119/62 95 07/23/16 15:00 07/23/16 15:00 07/23/16 15:00 07/23/16 15:00 07/23/16 15:00 Internal Medicine: Result - Labs CBC & Chem 7: 07/23/16 03:30 07/23/16 03:30 Labs: Short CBC 07/23/16 Range/Units 03:30 WBC 19.7 H (4.3-11.1) K/mcL Hgb 9.0 L (12.9-16.9) g/dL Hct 26.2 L (37.5-50.1) % Plt Count 209 (140-400) K/mcL Neutrophils # 18.1 H (1.6-8.9) K/mcL BMP 07/23/16 03:30 Sodium 134 L Potassium 3.0 L Chloride 96 L Carbon Dioxide 24 BUN 18 Creatinine 0.62 L Glucose 64 L Calcium 7.9 L - Impressions Impressions Abdomen/Pelvis CT 07/22/16 09:59 IMPRESSION: 1. Interval progression of intrahepatic metastatic disease. 2. Interval development of a new mild amount of ascites within the perihepatic space extending along the right pericolic gutter and into the pelvis. The ascites is somewhat high in attenuation and may be hemorrhagic. This could reflect malignant ascites. 3. Small right pleural effusion with persistent bulky metastatic right hilar lymphadenopathy, partially visualized. There are stable nodular densities within the anterior right lung base, also consistent with intrapulmonary metastatic disease. 4. Stable small pericardial effusion. 5. New nonspecific 1.2 x 0.7 cm exophytic nodule off the posterior aspect of the left kidney lower pole. Suggest initial characterization of this abnormality with a follow-up renal ultrasound, with further workup pending ultrasound results. 6. Stable metastatic rena hepatic lymphadenopathy. 7. Stable 5.5 cm infrarenal AAA, without evidence of rupture. Further follow-up of this abnormality is as suggested below. 8. Stable osseous metastatic disease. RECOMMENDATIONS: Managing Abdominal Aortic Aneurysms Greater than or equal to 5.5 cm: Referral to vascular surgeon. Reference: Adeline et al. The care of patients with an abdominal aortic aneurysm: The Society of Vascular Surgery practice guidelines. Journal of Vascular Surgery. Vol 50, Number 85. Oskar et al. Managing Incidental Findings on Abdominal and Pelvic CT and MRI, Part 2: White Paper of the ACR Incidental Findings Committee II on Vascular Findings. J Am Lisa Radiol 2013;10:789-794 D/ / 07/22/2016 11:31:56 Leonid Gu MD / Radha Valle Interpreting Provider: Leonid Gu MD - Attending Attestation I examined this patient and my medical decision-making was reviewed with the Resident Physician, Dr. Galicia. I agree with the documented findings, disposition and treatment plan as described except to the extent set forth below. This is an ill-appearing elderly man appears malnourished and lethargic. He is in no acute distress. Heart exam reveals regular S1-S2 lungs are diminished bilaterally. Abdomen is soft. Plan: Continue broad-spectrum IV antibiotics. Consult palliative care service for end of life and goals of care discussion given the patient has advanced cancer and is and a severe malnourished state. Diagnosis: Severe protein calorie malnutrition, we will consult nutrition for dietary supplements.
[2016-07-23] MEDS ORDERED: Magnesium Sulfate 2 GM in D5% in Water 100 ML IVPB ONE (17:48)
[2016-07-23] MEDS: Folic Acid 1 MG TABLET PO SCH (18:07)
[2016-07-24] MEDS: Cefepime HCl 1,000 MG in D5% in Water (Mini-Bag+) 100 ML IVPB SCH ×2 (00:51→08:26)
[2016-07-24 05:16] LABS: Basophils % 0.1 %; Eosinophils % 0.1 %; Hematocrit 25.1 % (37.5-50.1); Hemoglobin 8.9 g/dL (12.9-16.9); Immature Granulocytes % 0.9 % (0-4); Lymphocytes # 1.2 K/mcL (0.6-4.6); Lymphocytes % 6.7 %; Mean Corpuscular HGB Conc 35.5 g/dL (31.6-35.5); Mean Corpuscular Hemoglobin 31.9 pg (28.0-33.3); Mean Platelet Volume 9.5 fL (9.4-12.4); Monocytes # 0.2 K/mcL (0.0-1.3); Monocytes % 0.9 %; Neutrophils # 16.1 K/mcL (1.6-8.9); Platelet Count 194 K/mcL (140-400); Red Blood Count 2.79 M/mcL (4.19-5.50); Red Cell Distribution Width 17.2 % (11.5-14.5); Segmented Neutrophils % 91.3 %
[2016-07-24 05:31] LABS: Large Platelets Present (Not Present); Platelet Estimate Normal (Normal); Toxic Granulation Present (Not Present)
[2016-07-24 05:34] LABS: BUN/Creatinine Ratio 21 (6-26); Blood Urea Nitrogen 12 mg/dL (8-26); Calcium 7.8 mg/dL (8.6-10.8); Carbon Dioxide 29 mEq/L (19-29); Chloride 96 mEq/L (98-109); Glucose 71 mg/dL (70-99); Magnesium 1.5 mg/dL (1.6-2.6); Osmolality,Calculated 278 (280-300); Potassium 2.7 mEq/L (3.5-4.5); Sodium 135 mEq/L (136-145); eGFR For African Americans > 60 (> 60); eGFR For Non-African Americans > 60 (> 60)
[2016-07-24] MEDS: *HR* Enoxaparin 30 MG/0.3 ML SYRINGE SQ SCH (06:49)
[2016-07-24] MEDS ORDERED: Magnesium Sulfate 2 GM in D5% in Water 100 ML IVPB ONE (08:04)
[2016-07-24] MEDS: Sennosides/Docusate Sodium TABLET PO SCH ×2 (08:25→21:36)
[2016-07-24] MEDS: Diltiazem CD (24hr) 120 MG CAPSULE PO SCH (08:25)
[2016-07-24] MEDS: *HR* OxyCODONE Immed Rel 5 MG TABLET PO PRN ×2 (08:26→18:48)
[2016-07-24] MEDS: Folic Acid 1 MG TABLET PO SCH (08:26)
[2016-07-24] MEDS: Potassium Chloride Elixir 20 MEQ/15 ML UDC PO SCH ×3 (08:26→21:36)
[2016-07-24] MEDS: Silver Sulfadiazine 50 GM TUBE TP SCH (08:27)
--- NOTE | 2016-07-24 10:07 | Palliative - Consult Note ---
Date of Encounter: 07/24/16 Time of Encounter: 09:15 - Assessment and Plan (1) Goals of care, counseling/discussion Current Visit: Yes Status: Acute Assessment and plan: Family meeting with , and two daughters. Dr. Christiansen attended and discussed recent CT scan with hepatic mets. Discussed patients failing nutritional status and poor outcome for any additional chemo. Family agrees to change in code status [id number]-A, DNI and agrees to transition to hospice care. Patient desires to be comfortable and be surrounded by family. Will discuss case with SS to plan for DC om Monday. (2) Abdominal pain Current Visit: No Status: Resolved Assessment and plan: Patient reports abdominal discomfort that comes and goes. Denies pain at present. Reports that it is cramping and generalized across anterior abdomen. Patient with PRN oxycodone. Will monitor. Qualifiers: Abdominal location: generalized Qualified Code(s): R10.84 - Generalized abdominal pain (3) Constipation Current Visit: No Status: Resolved Assessment and plan: Patient receiving miralax and senna. Last BM this AM. Will monitor. Qualifiers: Constipation type: slow transit constipation Qualified Code(s): K59.01 - Slow transit constipation (4) Nutrient intake below expected requirement Current Visit: Yes Status: Acute Assessment and plan: BMI 17.9. Patient s/p chemo and has loss of appetite and metastatic CA. Dietary following. Palliative-CN HPI - Data of Consult Patient: known to practice within the last 3 years Consult date: 07/24/16 Requesting Physician: Yaron Christiansen MD Primary Care Provider: [facility] - Consult Narrative Palliative Care/Comfort Measures: Palliative care Reason for consult: Goals of Care History of present illness: Mr. Wilburn is a 71 year old male with history of metastatic right small cell lung cancer to liver and bone. He recently completed a cycle of palliative chemotherapy on 06/28/16 and was admitted on 07/21/16 with dehydration, confusion and FTT. This palliative care consult is for goals of care discussion. The patient reports weight loss, loss of appetite and weakness. He is alert and oriented. Vital signs are stable and he denies any pain. He reports that his is in [facility] for rehab and that his daughter Abby is engaged in his care. Abby contact info is [phone]. She is planning to pick-up the patients from rehab and visit later this morning. A family meeting had been set-up for this afternoon. CC: Yaron Christiansen MD Past Med Surg Social Fam HX - Past Medical History Source: patient, old records reviewed Medical history: aortic aneurysm, cancer, COPD, CVA, hyperlipidemia, hypertension Psychiatric history: anxiety, depression - Social History Smoking Status: Former smoker Smokeless Tobacco Status: No Alcohol use: none Drug use: none Occupational status: retired Current living situation: With Family Activity Level: Independent ambulation Recent Out of Country Travel Within the Last 8 Weeks: No Exposure or Possible Exposure to Illness During Travel: No Medications and Allergies Atorvastatin [Lipitor] 40 mg PO DAILY 12/02/14 [History] BuPROPion SR (12 HR) [Wellbutrin SR] 300 mg PO DAILY 05/15/16 [History] Amlodipine [Norvasc] 5 mg PO DAILY #30 tablet 05/19/16 [Rx] Lidocaine/Prilocaine CREAM [Emla] 1 appl TP PRN PRN #1 tube 05/27/16 [Rx] Omeprazole [PriLOSEC] 20 mg PO DAILY #30 cap 05/27/16 [Rx] Ondansetron HCl [Zofran] 4 mg PO Q6H PRN #30 tablet 05/27/16 [Rx] Prochlorperazine Maleate [Compazine] 10 mg PO Q6HR PRN #60 tablet 05/27/16 [Rx] Acetaminophen [Tylenol] 650 mg PO Q6HR PRN #0 tablet 06/03/16 [Rx] Alprazolam [Xanax 0.25 MG Tablet] 0.25 mg PO HS PRN #20 tablet 06/03/16 [Rx] Aspirin 81 mg PO DAILY tab.chew 06/03/16 [Rx] MOM Conc [Milk of Magnesia Conc] 10 ml PO DAILY PRN #30 mls 06/03/16 [Rx] Polyethylene Glycol 3350 [MiraLAX Powder Bulk 17.9 Oz] 1 scoop PO DAILY #510 gm 06/14/16 [Rx] Oxycodone HCl [Oxaydo] 5 mg PO Q4H PRN #84 tablet.orl 07/06/16 [Rx] Allopurinol [Zyloprim 300 MG] 300 mg PO DAILY #30 tablet 07/11/16 [Rx] Megestrol Acetate [Megace] 10 ml PO DAILY #300 mls 07/11/16 [Rx] Diltiazem CD (24hr) [Cardizem CD] 120 mg PO DAILY 07/13/16 [History] Silver Sulfadiazine [Silvadene] 1 appl TP BID #1 cream..g. 07/13/16 [Rx] Ipratropium/Albuterol Neb [Duoneb] 3 ml IH [id number] PRN 07/21/16 [History] Allergies No Known Allergies Allergy (Verified 07/13/16 08:41) Review of systems: weakness, loss of appetite, occasional nausea and weight loss. - Constitutional Constitutional ROS PAL: decreased appetite, weight loss - EENT Eyes: requires corrective lenses - Gastrointestinal Gastrointestinal: constipation (complaints of constipation on admit but now daily BMs) - Genitourinary Genitourinary ROS male: urinary incontinence - Musculoskeletal Musculoskeletal ROS IM: arthralgias (histpry of chronic back pain), muscle weakness - Integumentary ROS Integumentary: skin ulcer (Sacral stage 1 to coccyx and stage 1 to right buttock) - Psychiatric Psychiatric general PM: as per HPI Palliative Care-Exam - Constitutional Vitals: Temp Pulse Resp BP Pulse Ox 98.2 F 102 20 132/82 94 07/24/16 07:24 07/24/16 07:24 07/24/16 07:24 07/24/16 07:24 07/24/16 07:24 General appearance: Present: cooperative, mild distress (from skin ulcer pain and back pain) - Head Head Exam: Present: atraumatic, normal inspection, normocephalic - Eye Eye exam: Present: PERRL Pupils: Present: PERRL - ENT ENT exam: Present: mucous membranes moist - Expanded ENT Exam Mouth Exam: Present: moist - Neck Neck exam: Present: full ROM - Respiratory Respiratory exam: Present: decreased breath sounds - Expanded Respiratory Exam Location: decreased breath sounds: Left, Right, Lower - Cardiovascular Cardiovascular exam: Present: RRR, +S1, +S2 - Expanded Cardiovascular Exam Peripheral pulses: 1+: Femoral (L) PM, Femoral (R) PM, Posterior Tibialis (L), Posterior Tibialis (R), 2+: Carotid (L) PM, Carotid (R) PM, Radial (L), Radial ( R), Dorsalis Pedis (L) PM, Dorsalis Pedis (R) PM - GI/Abdominal Exam GI/Abdominal exam: Present: normal bowel sounds, soft - Rectal Rectal Exam: Present: deferred - Additional comments: Wears attends, occasional incontinence - Extremities Exam Extremities exam: Present: full ROM - Expanded Upper Extremities Exam Shoulder exam: Present: full ROM Upper Arm exam: Present: full ROM Elbow exam: Present: full ROM Forearm wrist exam: Present: full ROM Hand wrist exam: Present: full ROM - Expanded Lower Extremities Exam Hip exam: Present: full ROM - Back Exam Back exam: Present: tenderness - Neurological Exam Neurological exam: Present: alert, oriented X3 - Psychiatric Psychiatric exam: Present: normal affect - Skin Skin exam: Present: pallor, warm (Stage I decib to coccyx - Dressing CDI) Internal Medicine - CN: Reslt - Labs CBC & Chem 7: 07/24/16 05:05 07/24/16 05:05 Labs: Short CBC 07/24/16 Range/Units 05:05 WBC 17.6 H (4.3-11.1) K/mcL Hgb 8.9 L (12.9-16.9) g/dL Hct 25.1 L (37.5-50.1) % Plt Count 194 (140-400) K/mcL Neutrophils # 16.1 H (1.6-8.9) K/mcL BMP 07/24/16 05:05 Sodium 135 L Potassium 2.7 L Chloride 96 L Carbon Dioxide 29 BUN 12 Creatinine 0.58 L Glucose 71 Calcium 7.8 L - Impressions Impressions Abdomen/Pelvis CT 07/22/16 09:59 IMPRESSION: 1. Interval progression of intrahepatic metastatic disease. 2. Interval development of a new mild amount of ascites within the perihepatic space extending along the right pericolic gutter and into the pelvis. The ascites is somewhat high in attenuation and may be hemorrhagic. This could reflect malignant ascites. 3. Small right pleural effusion with persistent bulky metastatic right hilar lymphadenopathy, partially visualized. There are stable nodular densities within the anterior right lung base, also consistent with intrapulmonary metastatic disease. 4. Stable small pericardial effusion. 5. New nonspecific 1.2 x 0.7 cm exophytic nodule off the posterior aspect of the left kidney lower pole. Suggest initial characterization of this abnormality with a follow-up renal ultrasound, with further workup pending ultrasound results. 6. Stable metastatic rena hepatic lymphadenopathy. 7. Stable 5.5 cm infrarenal AAA, without evidence of rupture. Further follow-up of this abnormality is as suggested below. 8. Stable osseous metastatic disease. RECOMMENDATIONS: Managing Abdominal Aortic Aneurysms Greater than or equal to 5.5 cm: Referral to vascular surgeon. Reference: Adeline et al. The care of patients with an abdominal aortic aneurysm: The Society of Vascular Surgery practice guidelines. Journal of Vascular Surgery. Vol 50, Number 85. Oskar et al. Managing Incidental Findings on Abdominal and Pelvic CT and MRI, Part 2: White Paper of the ACR Incidental Findings Committee II on Vascular Findings. J Am Lisa Radiol 2013;10:789-794 D/ / 07/22/2016 11:31:56 Leonid Gu MD / Radha Valle Interpreting Provider: Leonid Gu MD Consult Discharge Plan - Plan Referrals: Bonita Xavier MD [Primary Care Provider] - 07/29/16 2:00 pm Palliative Quality Palliative Quality: Screen for Code Status: Yes, Screen for Goals of Care: Yes, Screen for Pain: Yes, If Pain Regimen Started, Initiate Bowel Regimen: Yes, Screen for Nausea/Vomitting: Yes Code Status: 07/21/16 16:50 Resuscitation Status: Active [RES] Routine Comment: Resuscitation Status: Full Code
--- NOTE | 2016-07-24 11:32 | Internal Med Progress Note ---
<Adrian Galicia - Last Filed: 07/24/16 14:39> Date of Encounter: 07/24/16 Time of Encounter: 10:35 - Assessment and plan (1) Sepsis Current Visit: Yes Status: Acute Assessment and plan: Possible sepsis. Denita presents with Leukocytosis and tachycardia. Afebrile. However he was dehydrated which may account for the tachycardia. Leukocytosis could possibly be from neulasta. However with a half life of 15-80 hours and last dose appears to have been given on 07/01/16. Possible sources would include skin as he has sacral wounds. Would also consider abdominal source as he is having some LLQ pain. Blood cultures and cultures from port were sent. I have ordered a lactic acid. Will consider broadening coverage as he is a frail patient on chemotherapy and at higher risk. we can deescalate once we have more culture data and CT scan results. I will discuss with my attending. Currently hemodynamically stable. Looks uncomfortable but not overtly toxic, continue IV fluids. 07/23/16 patient appears to be improving clinically. CT was negative for source of infection. WBC trending down. appreciate Oncologies input on Neulasta. Leukocytosis is likely not from Neulasta. Source is likely from Stage 2 sacral decubitus ulcer. Continue the patient on broad spectrum antibiotics with Vancomycin and Cefepime. If no growth tomorrow and the patient continues to improve we will consider deescalating. 07/24/16 Blood cultures show no growth to date. Leukocytosis is trending down. There is currently no identifiable source of infection. Other than possible stage II decubitus ulcers. However these are unimpressive. We will stop antibiotics and observe him clinically. Currently he is stable. If leukocytosis trends up or if he develops fever in the next 24 hours would recommend resuming antibiotics after tucker culturing the patient again. (2) Small cell lung cancer Current Visit: Yes Status: Acute Assessment and plan: currently on chemotherapy Oncology following. (3) Leukocytosis Current Visit: Yes Status: Acute Assessment and plan: as stated above (4) Abdominal pain Current Visit: No Status: Resolved Assessment and plan: resolved. Qualifiers: Abdominal location: generalized Qualified Code(s): R10.84 - Generalized abdominal pain (5) Abdominal aortic aneurysm (AAA) 3.0 cm to 5.5 cm in diameter in male Current Visit: Yes Status: Acute Assessment and plan: Infrarenal 5.5 cm AAA. stable Asymptomatic at this time. Given the patients malignancy may consider no repair versus possible EVAR. Currently he is asymptomatic. Would recommend outpatient Vascular surgical consultation to discuss patients options. (6) Constipation Current Visit: No Status: Resolved Assessment and plan: Resolved Qualifiers: Constipation type: slow transit constipation Qualified Code(s): K59.01 - Slow transit constipation (7) Dehydration Current Visit: Yes Status: Acute Assessment and plan: continue IVF (8) Metabolic encephalopathy Current Visit: Yes Status: Acute Assessment and plan: Likely from a combination of chemotherapy, infection, and dehydration. Only mild confusion at this time. continue to treat underlying causes. May consider further imaging if he worsens. He is scheduled for repeat PET scan next week per his Daughter. (9) Paroxysmal a-fib Current Visit: Yes Status: Acute Assessment and plan: Heart rate below 110. averaging low 100s. Continue cardizem. PRN beta bc. Will continue to monitor. No anticoagulation as he has history of intracranial bleed and is a fall risk. (10) DVT prophylaxis Current Visit: Yes Status: Acute Assessment and plan: High risk I will continue him on lovenox (11) Anemia Current Visit: Yes Status: Acute Assessment and plan: likely from chemotherapy. continue to monitor Replace folate. (12) Hypomagnesemia Current Visit: Yes Status: Acute Assessment and plan: replace (13) Hypokalemia Current Visit: Yes Status: Acute Assessment and plan: replace. (14) Elevated lactic acid level Current Visit: Yes Status: Acute Assessment and plan: likely from dehydration doubt severe sepsis given clinical picture. We are holding antibiotics but would have low threshold to resume should the patient clinically worsen. - Subjective Interval history: Today Mr. Wilburn states that he is feeling better. He denies any pain or discomfort. He denies any dyspnea, cough, wheeze or hemoptysis. He has no further complaints or concerns at this time. - Constitutional Vitals: Temp Pulse Resp BP Pulse Ox 98.0 F 102 19 103/54 93 07/24/16 10:56 07/24/16 10:56 07/24/16 10:56 07/24/16 10:56 07/24/16 10:56 General appearance: Present: cachectic, cooperative, A&O X 3, pleasant, underweight, answers questions appropriately - Head Head exam: Present: atraumatic, normocephalic - Eye Eye exam: Present: PERRL, conjuntiva pink, sclera anicteric Pupils: Present: PERRL - ENT ENT exam: Present: mucous membranes moist - Neck Neck exam general surgery: Present: supple, trachea midline. Absent: lymphadenopathy - Respiratory Respiratory exam: Present: CTAB. Absent: accessory muscle use, rales, rhonchi, wheezes - Cardiovascular Cardiovascular exam: Present: +S1, +S2, tachycardia. Absent: diastolic murmur, gallop, rubs, systolic murmur - GI/Abdominal GI/Abdominal exam: Present: normal bowel sounds, soft, no peritoneal signs. Absent: distended, tenderness - Extremities Exam Extremities exam: Present: warm, radial pulses palpable and symetrical. Absent : calf tenderness, cyanotic, pedal edema Internal Medicine: Result - Labs CBC & Chem 7: 07/24/16 05:05 07/24/16 05:05 Labs: Short CBC 07/24/16 Range/Units 05:05 WBC 17.6 H (4.3-11.1) K/mcL Hgb 8.9 L (12.9-16.9) g/dL Hct 25.1 L (37.5-50.1) % Plt Count 194 (140-400) K/mcL Neutrophils # 16.1 H (1.6-8.9) K/mcL BMP 07/24/16 05:05 Sodium 135 L Potassium 2.7 L Chloride 96 L Carbon Dioxide 29 BUN 12 Creatinine 0.58 L Glucose 71 Calcium 7.8 L - Impressions Impressions Abdomen/Pelvis CT 07/22/16 09:59 IMPRESSION: 1. Interval progression of intrahepatic metastatic disease. 2. Interval development of a new mild amount of ascites within the perihepatic space extending along the right pericolic gutter and into the pelvis. The ascites is somewhat high in attenuation and may be hemorrhagic. This could reflect malignant ascites. 3. Small right pleural effusion with persistent bulky metastatic right hilar lymphadenopathy, partially visualized. There are stable nodular densities within the anterior right lung base, also consistent with intrapulmonary metastatic disease. 4. Stable small pericardial effusion. 5. New nonspecific 1.2 x 0.7 cm exophytic nodule off the posterior aspect of the left kidney lower pole. Suggest initial characterization of this abnormality with a follow-up renal ultrasound, with further workup pending ultrasound results. 6. Stable metastatic rena hepatic lymphadenopathy. 7. Stable 5.5 cm infrarenal AAA, without evidence of rupture. Further follow-up of this abnormality is as suggested below. 8. Stable osseous metastatic disease. RECOMMENDATIONS: Managing Abdominal Aortic Aneurysms Greater than or equal to 5.5 cm: Referral to vascular surgeon. Reference: Adeline et al. The care of patients with an abdominal aortic aneurysm: The Society of Vascular Surgery practice guidelines. Journal of Vascular Surgery. Vol 50, Number 85. Oskar et al. Managing Incidental Findings on Abdominal and Pelvic CT and MRI, Part 2: White Paper of the ACR Incidental Findings Committee II on Vascular Findings. J Am Lisa Radiol 2013;10:789-794 D/ / 07/22/2016 11:31:56 Leonid Gu MD / Radha Valle Interpreting Provider: Leonid Gu MD Consult Discharge Plan - Plan Referrals: Bonita Xavier MD [Primary Care Provider] - 07/29/16 2:00 pm <Yaron Christiansen - Last Filed: 07/24/16 17:14> Date of Encounter: 07/24/16 - Constitutional Vitals: Temp Pulse Resp BP Pulse Ox 98.1 F 63 18 110/66 95 07/24/16 14:32 07/24/16 14:32 07/24/16 14:32 07/24/16 14:32 07/24/16 14:32 Internal Medicine: Result - Labs CBC & Chem 7: 07/24/16 05:05 07/24/16 05:05 Labs: Short CBC 07/24/16 Range/Units 05:05 WBC 17.6 H (4.3-11.1) K/mcL Hgb 8.9 L (12.9-16.9) g/dL Hct 25.1 L (37.5-50.1) % Plt Count 194 (140-400) K/mcL Neutrophils # 16.1 H (1.6-8.9) K/mcL BMP 07/24/16 05:05 Sodium 135 L Potassium 2.7 L Chloride 96 L Carbon Dioxide 29 BUN 12 Creatinine 0.58 L Glucose 71 Calcium 7.8 L - Attending Attestation I examined this patient and my medical decision-making was reviewed with the Resident Physician, Dr. Galicia. I agree with the documented findings, disposition and treatment plan as described except to the extent set forth below. Patient is in no acute distress lying in position, he appears withdrawn. Skin examination revealed reveals multiple scabbed wounds and britney sacral stage II decubitus ulcer measuring 4 cm in the largest diameter. I have discussed the prognosis and plan of care with the patient and his family including the patient's and 2 daughters at the bedside. The patient and family understand that he has advanced stage metastatic cancer for which chemotherapy even palliative is a very unlikely option at this point due to poor functional status and poor nutritional status. The patient and family opted for DNR comfort care. At this point all cultures are negative and he has no sign of infection. White blood cell count is still elevated, likely secondary to malignancy and not infectious. Sepsis has been ruled out. I will stop antibiotics and monitor the patient clinically. He is at high risk for morbidity and mortality and complications due to de- escalation of care to DNR CC.
[2016-07-24] MEDS: 0.9 % Sodium Chloride 1,000 ML IVC SCH (14:20)
[2016-07-25 03:56] VITALS: BP 143/84
[2016-07-25 04:11] LABS: Basophils % 0.1 %; Hematocrit 25.4 % (37.5-50.1); Hemoglobin 8.9 g/dL (12.9-16.9); Lymphocytes # 1.2 K/mcL (0.6-4.6); Mean Corpuscular Volume 91.4 fL (83.0-100.0); Mean Platelet Volume 9.3 fL (9.4-12.4); Monocytes # 0.2 K/mcL (0.0-1.3); Monocytes % 1.3 %; Neutrophils # 12.9 K/mcL (1.6-8.9); Platelet Count 188 K/mcL (140-400); Red Blood Count 2.78 M/mcL (4.19-5.50); Red Cell Distribution Width 17.2 % (11.5-14.5); Segmented Neutrophils % 89.6 %
[2016-07-25 04:29] LABS: BUN/Creatinine Ratio 22 (6-26); Blood Urea Nitrogen 12 mg/dL (8-26); Calcium 7.9 mg/dL (8.6-10.8); Carbon Dioxide 28 mEq/L (19-29); Chloride 97 mEq/L (98-109); Glucose 61 mg/dL (70-99); Magnesium 1.5 mg/dL (1.6-2.6); Osmolality,Calculated 282 (280-300); Potassium 2.6 mEq/L (3.5-4.5); Sodium 137 mEq/L (136-145); eGFR For African Americans > 60 (> 60); eGFR For Non-African Americans > 60 (> 60)
[2016-07-25] MEDS ORDERED: *HR* Enoxaparin 40 MG/0.4 ML SYRINGE SQ SCH (06:00)
[2016-07-25] MEDS: Diltiazem CD (24hr) 120 MG CAPSULE PO SCH (08:11)
[2016-07-25] MEDS: Folic Acid 1 MG TABLET PO SCH (08:20)
[2016-07-25] MEDS: Sennosides/Docusate Sodium TABLET PO SCH (08:20)
[2016-07-25] MEDS ORDERED: Magnesium Sulfate 2 GM in D5% in Water 100 ML IVPB ONE (08:29)
[2016-07-25] MEDS ORDERED: Potassium Chloride Elixir 20 MEQ/15 ML UDC PO SCH (09:00)
--- NOTE | 2016-07-25 09:19 | Palliative Progress Note ---
<Chris Armando - Last Filed: 07/25/16 09:34> Date of Encounter: 07/25/16 Time of Encounter: 09:17 - Assessment and plan (1) Goals of care, counseling/discussion Status: Acute Assessment and plan: Pt desires to be comfortable and wishes to be around family. Questions regarding DNR-CC vs DNR-CCA/I will be discussed with daughter later today to clarify any confusion within the notes. The patient currently not wanting chest compressions or intubation and biggest goal of care being "to be comfortable". Pt not wanting aggressive treatment at this time. (2) Protein-calorie malnutrition Status: Acute Assessment and plan: Pt continues to have decreased oral intake. Pt states appetite is there but that he doesn't like the food and doesn't have family and people to help him eat. The patient appears to have some aspect of depression that is contributing. 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 Oncology following. Recently treated/started on palliative chemo. (4) Sepsis Status: Acute Assessment and plan: Pt with possible sepsis (tachycardia, leukocytosis) being treated with ABX per primary team - Time Spent With Patient Total time spent is greater than 50% in coordination of care (as documented) at patient's floor/unit and/or counseling patient: - Subjective Interval history: Pt today with complaints of feeling like his kids owe him to come and see him more. He feels like no once cares and is more of a burden than anything. No current pain, cough, fevers or complaints other than that stated above. - Constitutional Vitals: Abnormal lab results WBC 14.4 K/mcL (4.3-11.1) H 07/25/16 03:58 RBC 2.78 M/mcL (4.19-5.50) L 07/25/16 03:58 Hgb 8.9 g/dL (12.9-16.9) L 07/25/16 03:58 Hct 25.4 % (37.5-50.1) L 07/25/16 03:58 RDW 17.2 % (11.5-14.5) H 07/25/16 03:58 MPV 9.3 fL (9.4-12.4) L 07/25/16 03:58 Reticulocyte # 0.01 M/mcL (0.05-0.10) L 07/23/16 03:30 Neutrophils # 12.9 K/mcL (1.6-8.9) H 07/25/16 03:58 Toxic Granulation Present (Not Present) A 07/24/16 05:05 Large Platelets Present (Not Present) A 07/24/16 05:05 Percent Retic 0.5 % (1.6-2.8) L 07/23/16 03:30 Immature Retic Fraction 6.1 % (11.0-38.0) L 07/23/16 03:30 Retic Hgb Equivalent 40.5 pg (28.61-36.33) H 07/23/16 03:30 Potassium 2.6 mEq/L (3.5-4.5) L 07/25/16 03:58 Chloride 97 mEq/L (98-109) L 07/25/16 03:58 Creatinine 0.55 mg/dL (0.72-1.25) L 07/25/16 03:58 Glucose 61 mg/dL (70-99) L 07/25/16 03:58 Calcium 7.9 mg/dL (8.6-10.8) L 07/25/16 03:58 Magnesium 1.5 mg/dL (1.6-2.6) L 07/25/16 03:58 % Saturation 93 % (20-55) H 07/23/16 03:30 Transferrin 105 mg/dL (174-364) L 07/23/16 03:30 Ferritin 4891 ng/ml (22-275) H 07/23/16 03:30 Total Bilirubin 1.8 mg/dL (0.2-1.2) H D 07/21/16 13:18 Direct Bilirubin 1.0 mg/dL (0.0-0.5) H 07/21/16 13:18 AST 130 Units/L (5-34) H 07/21/16 13:18 ALT 68 Units/L (0-55) H 07/21/16 13:18 Alkaline Phosphatase 302 Units/L (38-126) H 07/21/16 13:18 Albumin 3.0 g/dL (3.5-5.0) L 07/21/16 13:18 Globulin 3.6 g/dL (2.4-3.5) H 07/21/16 13:18 Albumin/Globulin Ratio 0.8 (1.1-2.2) L 07/21/16 13:18 Vitamin B12 1326 pg/mL (213-816) H 07/23/16 03:30 Folate 5.8 ng/mL (7.0-31.4) L 07/23/16 03:30 Urine Blood Trace (Negative) H 07/22/16 02:15 Vancomycin Trough 4.4 mcg/mL (10-20) L 07/24/16 13:00 - Head Head exam: Present: atraumatic, normal inspection - Eye Eye exam: Absent: conjunctival injection, scleral icterus, sclera anicteric - ENT ENT exam: Present: mucous membranes dry - Neck Neck exam: Present: normal inspection - Respiratory Respiratory exam: Absent: accessory muscle use, respiratory distress - GI/Abdominal GI/Abdominal exam: Present: soft. Absent: tenderness - Extremities Exam Extremities exam: Absent: pedal edema Additional comments: chronic dry skin changes to lower extremities - Neurological Exam Neurological exam: Present: alert. Absent: no focal deficits, facial droop, speech deficit - Psychiatric Psychiatric exam: Present: depressed - Skin Skin exam: Present: dry, warm. Absent: abrasion, rash Palliative Quality Palliative Quality: Screen for Code Status: Yes, Screen for Goals of Care: Yes, Screen for Pain: Yes, If Pain Regimen Started, Initiate Bowel Regimen: Yes, Screen for Nausea/Vomitting: Yes Code Status: 07/21/16 16:50 Resuscitation Status: Active [RES] Routine Comment: Resuscitation Status: Full Code 07/24/16 12:06 DNR [Resuscitation Status: Active] [RES] Routine Comment: Resuscitation Status: [id number] 07/24/16 12:16 DNR [Resuscitation Status: Active] [RES] Routine Comment: Resuscitation Status: DNR-Comfort Care - Labs CBC & Chem 7: 07/25/16 03:58 07/25/16 03:58 Labs: Laboratory Results - last 24 hr 07/24/16 07/24/16 07/25/16 13:00 14:50 03:58 WBC 14.4 H RBC 2.78 L Hgb 8.9 L Hct 25.4 L MCV 91.4 MCH 32.0 MCHC 35.0 RDW 17.2 H Plt Count 188 MPV 9.3 L Immature Gran % 1.0 Seg Neutrophils % 89.6 Lymphocytes % 8.0 Monocytes % 1.3 Eosinophils % 0.0 Basophils % 0.1 Neutrophils # 12.9 H Lymphocytes # 1.2 Monocytes # 0.2 Eosinophils # 0.0 Basophils # 0.0 Sodium Potassium Chloride Carbon Dioxide BUN Creatinine Est GFR ( Amer) Est GFR (Non-Af Amer) BUN/Creatinine Ratio Glucose Calculated Osmolality Lactic Acid 2.2 Calcium Magnesium Vancomycin Trough 4.4 L 07/25/16 03:58 WBC RBC Hgb Hct MCV MCH MCHC RDW Plt Count MPV Immature Gran % Seg Neutrophils % Lymphocytes % Monocytes % Eosinophils % Basophils % Neutrophils # Lymphocytes # Monocytes # Eosinophils # Basophils # Sodium 137 Potassium 2.6 L Chloride 97 L Carbon Dioxide 28 BUN 12 Creatinine 0.55 L Est GFR ( Amer) > 60 Est GFR (Non-Af Amer) > 60 BUN/Creatinine Ratio 22 Glucose 61 L Calculated Osmolality 282 Lactic Acid Calcium 7.9 L Magnesium 1.5 L Vancomycin Trough Consult Discharge Plan - Plan Referrals: Bonita Xavier MD [Primary Care Provider] - 07/29/16 2:00 pm Prescriptions: Folic Acid 1 mg PO DAILY 30 Days Megestrol Acetate [Megace] 10 ml PO DAILY 30 Days Mirtazapine [Remeron] 15 mg PO HS 30 Days Sennosides/Docusate Sodium [Senna Plus] 2 each PO BID 30 Days <Dimitry Mcintosh L - Last Filed: 07/26/16 07:22> Date of Encounter: 07/26/16 - Time Spent With Patient Total time spent is greater than 50% in coordination of care (as documented) at patient's floor/unit and/or counseling patient: - Constitutional Vitals: Abnormal lab results WBC 14.4 K/mcL (4.3-11.1) H 07/25/16 03:58 RBC 2.78 M/mcL (4.19-5.50) L 07/25/16 03:58 Hgb 8.9 g/dL (12.9-16.9) L 07/25/16 03:58 Hct 25.4 % (37.5-50.1) L 07/25/16 03:58 RDW 17.2 % (11.5-14.5) H 07/25/16 03:58 MPV 9.3 fL (9.4-12.4) L 07/25/16 03:58 Reticulocyte # 0.01 M/mcL (0.05-0.10) L 07/23/16 03:30 Neutrophils # 12.9 K/mcL (1.6-8.9) H 07/25/16 03:58 Toxic Granulation Present (Not Present) A 07/24/16 05:05 Large Platelets Present (Not Present) A 07/24/16 05:05 Percent Retic 0.5 % (1.6-2.8) L 07/23/16 03:30 Immature Retic Fraction 6.1 % (11.0-38.0) L 07/23/16 03:30 Retic Hgb Equivalent 40.5 pg (28.61-36.33) H 07/23/16 03:30 Potassium 2.6 mEq/L (3.5-4.5) L 07/25/16 03:58 Chloride 97 mEq/L (98-109) L 07/25/16 03:58 Creatinine 0.55 mg/dL (0.72-1.25) L 07/25/16 03:58 Glucose 61 mg/dL (70-99) L 07/25/16 03:58 Calcium 7.9 mg/dL (8.6-10.8) L 07/25/16 03:58 Magnesium 1.5 mg/dL (1.6-2.6) L 07/25/16 03:58 % Saturation 93 % (20-55) H 07/23/16 03:30 Transferrin 105 mg/dL (174-364) L 07/23/16 03:30 Ferritin 4891 ng/ml (22-275) H 07/23/16 03:30 Total Bilirubin 1.8 mg/dL (0.2-1.2) H D 07/21/16 13:18 Direct Bilirubin 1.0 mg/dL (0.0-0.5) H 07/21/16 13:18 AST 130 Units/L (5-34) H 07/21/16 13:18 ALT 68 Units/L (0-55) H 07/21/16 13:18 Alkaline Phosphatase 302 Units/L (38-126) H 07/21/16 13:18 Albumin 3.0 g/dL (3.5-5.0) L 07/21/16 13:18 Globulin 3.6 g/dL (2.4-3.5) H 07/21/16 13:18 Albumin/Globulin Ratio 0.8 (1.1-2.2) L 07/21/16 13:18 Vitamin B12 1326 pg/mL (213-816) H 07/23/16 03:30 Folate 5.8 ng/mL (7.0-31.4) L 07/23/16 03:30 Urine Blood Trace (Negative) H 07/22/16 02:15 Vancomycin Trough 4.4 mcg/mL (10-20) L 07/24/16 13:00 - Attending Attestation I examined this patient and my medical decision-making was reviewed with the Resident Physician. I agree with the documented findings, disposition and treatment plan as described except to the extent set forth below. Palliative Quality Code Status: 07/21/16 16:50 Resuscitation Status: Active [RES] Routine Comment: Resuscitation Status: Full Code 07/24/16 12:06 DNR [Resuscitation Status: Active] [RES] Routine Comment: Resuscitation Status: [id number] 07/24/16 12:16 DNR [Resuscitation Status: Active] [RES] Routine Comment: Resuscitation Status: DNR-Comfort Care - Labs CBC & Chem 7: 07/25/16 03:58 07/25/16 03:58
[2016-07-25] MEDS: 0.9 % Sodium Chloride 1,000 ML IVC SCH (09:27)
[2016-07-25] MEDS: Silver Sulfadiazine 50 GM TUBE TP SCH (09:30)
--- NOTE | 2016-07-25 11:35 | Discharge Summary ---
<FridaAdrian Edtonny - Last Filed: 07/26/16 14:46> Date of Encounter: 07/26/16 Time of Encounter: 11:20 - Discharge Diagnosis (1) Sepsis Priority: Primary Status: Acute Qualifiers: Qualified Code(s): A41.9 - Sepsis, unspecified organism (2) Small cell lung cancer Priority: Secondary Status: Acute Qualifiers: Qualified Code(s): C34.90 - Malignant neoplasm of unspecified part of unspecified bronchus or lung (3) Leukocytosis Priority: Secondary Status: Acute Qualifiers: Qualified Code(s): D72.829 - Elevated white blood cell count, unspecified (4) Abdominal pain Priority: Secondary Status: Resolved Qualifiers: Abdominal location: generalized Qualified Code(s): R10.84 - Generalized abdominal pain (5) Abdominal aortic aneurysm (AAA) 3.0 cm to 5.5 cm in diameter in male Priority: Secondary Status: Acute (6) Constipation Priority: Secondary Status: Resolved Qualifiers: Constipation type: slow transit constipation Qualified Code(s): K59.01 - Slow transit constipation (7) Dehydration Priority: Secondary Status: Acute (8) Metabolic encephalopathy Priority: Secondary Status: Acute (9) Paroxysmal a-fib Priority: Secondary Status: Acute (10) DVT prophylaxis Priority: Secondary Status: Acute (11) Anemia Priority: Secondary Status: Acute Qualifiers: Qualified Code(s): D64.9 - Anemia, unspecified (12) Hypomagnesemia Priority: Secondary Status: Acute (13) Hypokalemia Priority: Secondary Status: Acute (14) Elevated lactic acid level Priority: Secondary Status: Acute - Discharge Medications Prescriptions: Folic Acid 1 mg PO DAILY 30 Days Megestrol Acetate [Megace] 10 ml PO DAILY 30 Days Mirtazapine [Remeron] 15 mg PO HS 30 Days Sennosides/Docusate Sodium [Senna Plus] 2 each PO BID 30 Days Home Medications: Atorvastatin [Lipitor] 40 mg PO DAILY 12/02/14 [History] Amlodipine [Norvasc] 5 mg PO DAILY #30 tablet 05/19/16 [Rx] Lidocaine/Prilocaine CREAM [Emla] 1 appl TP PRN PRN #1 tube 05/27/16 [Rx] Omeprazole [PriLOSEC] 20 mg PO DAILY #30 cap 05/27/16 [Rx] Ondansetron HCl [Zofran] 4 mg PO Q6H PRN #30 tablet 05/27/16 [Rx] Prochlorperazine Maleate [Compazine] 10 mg PO Q6HR PRN #60 tablet 05/27/16 [Rx] Acetaminophen [Tylenol] 650 mg PO Q6HR PRN #0 tablet 06/03/16 [Rx] Alprazolam [Xanax 0.25 MG Tablet] 0.25 mg PO HS PRN #20 tablet 06/03/16 [Rx] MOM Conc [MILK OF MAGNESIA conc] 10 ml PO DAILY PRN #30 mls 06/03/16 [Rx] Polyethylene Glycol 3350 [MiraLAX Powder Bulk 17.9 Oz] 1 scoop PO DAILY #510 gm 06/14/16 [Rx] Oxycodone HCl [Oxaydo] 5 mg PO Q4H PRN #84 tablet.orl 07/06/16 [Rx] Allopurinol [Zyloprim 300 MG] 300 mg PO DAILY #30 tablet 07/11/16 [Rx] Diltiazem CD (24hr) [Cardizem CD] 120 mg PO DAILY 07/13/16 [History] Silver Sulfadiazine [Silvadene] 1 appl TP BID #1 cream..g. 07/13/16 [Rx] Ipratropium/Albuterol Neb [Duoneb] 3 ml IH [id number] PRN 07/21/16 [History] Folic Acid 1 mg PO DAILY 30 Days 07/25/16 [Rx] Megestrol Acetate [Megace] 10 ml PO DAILY 30 Days 07/25/16 [Rx] Mirtazapine [Remeron] 15 mg PO HS 30 Days 07/25/16 [Rx] Sennosides/Docusate Sodium [Senna Plus] 2 each PO BID 30 Days 07/25/16 [Rx] Allergies/Adverse Reactions: Allergies No Known Allergies Allergy (Verified 07/13/16 08:41) Date of admission: 07/21/16 16:06 Primary care physician: Bonita Thomson Consults: 07/21/16 16:52 Consult to Occupational Therapy [CONS] Routine Comment: Evaluate, develop and implement POC Consult to Physical Therapy [CONS] Routine Comment: Evaluate, develop and implement POC Consult to Family Services Manager [CONS] Routine Reason for SW Consult: Discharge planning. d/c with IV ATB at home. PICC line in place. patient family wish to be trained to manage IV administration. 07/21/16 17:31 Consult to Nutrition [CONS] Routine Comment: Consulting Provider: NUTRITION Reason for Dietary Consult: MST Score Consult to Pastoral Services [CONS] Routine Comment: 07/21/16 17:51 Consult to Wound Care [CONS] Routine Reason for Consult: decubitus ulcers stage 1-2, pre exisiting prior to admission Time Notified: 17:51 Call Completed: No 07/23/16 16:42 Consult to Palliative Care [CONS] Routine Comment: metastatic lung CA. FTT cachexia Consulting Provider: Palliative Care [place] Discharging clinician: Adrian Galicia Anticipated date of discharge: 07/25/16 - Patient Status Disposition: Hospice - Home Condition: Fair Functional capacity at discharge: bed bound Overall status at discharge: patient is not back to baseline - Discharge Instructions Follow Up With: Bonita Xavier MD [Primary Care Provider] - 07/29/16 2:00 pm Forms: ED Satisfaction Letter, Work/School Release - Diet and Activity Activity: as per physical therapy Diet: regular diet Hospital course: Mr. Wilburn is a 71 year old male with metastatic small cell carcinoma of the lung. He was admitted with generalized weakness and dehydration. There was conscern for possible infection given the leukocytosis. However we do not have a source. and blood cultures show no growth to date. All Antibiotics were stopped yesterday and he has remained afebrile and Leukocytosis is trending down. Palliative care was also consulted. Family and patient wishes to focus We will discharge him today to go home with home hospice. - Time Spent with Patient Total time spent providing and/or coordinating discharge services: - Constitutional Vitals: Temp Pulse Resp BP Pulse Ox 98.0 F 103 14 143/84 95 07/25/16 03:54 07/25/16 03:54 07/25/16 03:54 07/25/16 03:54 07/25/16 09:37 General appearance: Present: cachectic, cooperative, A&O X 3, pleasant, underweight, answers questions appropriately - Head Head exam: Present: atraumatic, normal inspection, normocephalic - Eye Eye exam: Present: PERRL, conjuntiva pink, sclera anicteric Pupils: Present: PERRL - Neck Neck exam general surgery: Present: supple, trachea midline. Absent: lymphadenopathy - Respiratory Respiratory exam: Present: CTAB. Absent: accessory muscle use, rales, rhonchi, wheezes - Cardiovascular Cardiovascular exam: Present: RRR, +S1, +S2. Absent: diastolic murmur, gallop, rubs, systolic murmur - GI/Abdominal GI/Abdominal exam: Present: normal bowel sounds, soft, no peritoneal signs. Absent: distended, tenderness - Extremities Exam Extremities exam: Present: warm, radial pulses palpable and symetrical. Absent : calf tenderness, cyanotic, pedal edema - Skin Skin exam: Present: dry, intact <Yaron Christiansen - Last Filed: 07/26/16 17:36> Date of Encounter: 07/26/16 Date of admission: 07/21/16 16:06 Primary care physician: Bonita Mayberry-[facility] Consults: 07/21/16 16:52 Consult to Occupational Therapy [CONS] Routine Comment: Evaluate, develop and implement POC Consult to Physical Therapy [CONS] Routine Comment: Evaluate, develop and implement POC Consult to Family Services Manager [CONS] Routine Reason for SW Consult: Discharge planning. d/c with IV ATB at home. PICC line in place. patient family wish to be trained to manage IV administration. 07/21/16 17:31 Consult to Nutrition [CONS] Routine Comment: Consulting Provider: NUTRITION Reason for Dietary Consult: MST Score Consult to Pastoral Services [CONS] Routine Comment: 07/21/16 17:51 Consult to Wound Care [CONS] Routine Reason for Consult: decubitus ulcers stage 1-2, pre exisiting prior to admission Time Notified: 17:51 Call Completed: No 07/23/16 16:42 Consult to Palliative Care [CONS] Routine Comment: metastatic lung CA. FTT cachexia Consulting Provider: Palliative Care [facility] course: Mr. Wilburn is a 71 year old male - Time Spent with Patient Total time spent providing and/or coordinating discharge services: - Constitutional Vitals: Temp Pulse Resp BP Pulse Ox 98.0 F 103 14 143/84 95 07/25/16 03:54 07/25/16 03:54 07/25/16 03:54 07/25/16 03:54 07/25/16 09:37 - Attending Attestation I examined this patient on 07/25/2016 and my medical decision-making was reviewed with the Resident Physician, Dr Galicia. I agree with the documented findings, disposition and treatment plan as described except to the extent set forth below. On exam he appears withdrawn. He appears malnourished. Heart is regular. Lungs are clear bilaterally. Abdomen soft and nontender. 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 Sepsis was ruled out during this admission. He also has severe protein calorie malnutrition. He has very poor prognosis. The family understands the prognosis and would like to focus on comfort. He will be discharged home with hospice.
[2016-07-25] MEDS ORDERED: Mirtazapine 15 MG TABLET PO ONE (12:00)
[2016-07-25] MEDS ORDERED: Potassium Chloride Elixir 20 MEQ/15 ML UDC PO ONE (13:00)
--- NOTE | 2016-07-25 13:40 | Physician Discharge Referral ---
Home Health/Hosp Referral Info Transfer to: Hospice Provider in Charge Post Discharge: PCP - Diagnosis (1) Sepsis Status: Acute (2) Small cell lung cancer Status: Acute (3) Leukocytosis Status: Acute (4) Abdominal aortic aneurysm (AAA) 3.0 cm to 5.5 cm in diameter in male Status: Acute (5) Dehydration Status: Acute (6) Metabolic encephalopathy Status: Acute (7) Paroxysmal a-fib Status: Acute (8) DVT prophylaxis Status: Acute (9) Anemia Status: Acute (10) Hypomagnesemia Status: Acute (11) Hypokalemia Status: Acute (12) Elevated lactic acid level Status: Acute - Respiratory Orders Oxygen / L per min (2L) Smoking Cessation: Smoking cessation has been advised. For more information, call the [employer] Quit Line at 7-592-UQKM-NOW. - Diet/Nutrition Diet/Nutrition Orders: Regular - Activity Activity Orders: Bedrest - Services Needed Following services are medically necessary services: Nursing, Home Health Aide, Physical Therapy, Occupational Therapy - Transfer Medications Prescriptions: Folic Acid 1 mg PO DAILY 30 Days Megestrol Acetate [Megace] 10 ml PO DAILY 30 Days Mirtazapine [Remeron] 15 mg PO HS 30 Days Sennosides/Docusate Sodium [Senna Plus] 2 each PO BID 30 Days Home Medications: Atorvastatin [Lipitor] 40 mg PO DAILY 12/02/14 [History] Amlodipine [Norvasc] 5 mg PO DAILY #30 tablet 05/19/16 [Rx] Lidocaine/Prilocaine CREAM [Emla] 1 appl TP PRN PRN #1 tube 05/27/16 [Rx] Omeprazole [PriLOSEC] 20 mg PO DAILY #30 cap 05/27/16 [Rx] Ondansetron HCl [Zofran] 4 mg PO Q6H PRN #30 tablet 05/27/16 [Rx] Prochlorperazine Maleate [Compazine] 10 mg PO Q6HR PRN #60 tablet 05/27/16 [Rx] Acetaminophen [Tylenol] 650 mg PO Q6HR PRN #0 tablet 06/03/16 [Rx] Alprazolam [Xanax 0.25 MG Tablet] 0.25 mg PO HS PRN #20 tablet 06/03/16 [Rx] MOM Conc [MILK OF MAGNESIA conc] 10 ml PO DAILY PRN #30 mls 06/03/16 [Rx] Polyethylene Glycol 3350 [MiraLAX Powder Bulk 17.9 Oz] 1 scoop PO DAILY #510 gm 06/14/16 [Rx] Oxycodone HCl [Oxaydo] 5 mg PO Q4H PRN #84 tablet.orl 07/06/16 [Rx] Allopurinol [Zyloprim 300 MG] 300 mg PO DAILY #30 tablet 07/11/16 [Rx] Diltiazem CD (24hr) [Cardizem CD] 120 mg PO DAILY 07/13/16 [History] Silver Sulfadiazine [Silvadene] 1 appl TP BID #1 cream..g. 07/13/16 [Rx] Ipratropium/Albuterol Neb [Duoneb] 3 ml IH [id number] PRN 07/21/16 [History] Folic Acid 1 mg PO DAILY 30 Days 07/25/16 [Rx] Megestrol Acetate [Megace] 10 ml PO DAILY 30 Days 07/25/16 [Rx] Mirtazapine [Remeron] 15 mg PO HS 30 Days 07/25/16 [Rx] Sennosides/Docusate Sodium [Senna Plus] 2 each PO BID 30 Days 07/25/16 [Rx] Allergies/Adverse Reactions: Allergies No Known Allergies Allergy (Verified 07/13/16 08:41) Certification: Further, I certify that my clinical findings support that this patient is homebound (i.e. absences from home require considerable and taxing effort and are for medical reasons or anabaptism services or infrequently or short duration when for other reasons) because: Homebound Reason: Leaving home requires considerable and taxing effort due to condition, Severity of cardiac or pulmonary status limits activity tolerance Attestation: My signature below is to certify that this patient is under my care and that I, or nurse practitioner, or a physician's clinical lab assistant working with me, has a face-to -face encounter with this patient.
[2016-07-26] MEDS ORDERED: Mirtazapine 15 MG TABLET PO SCH (21:00)
== END 2016-07-25 14:16 | disposition hospice, home (50) ==
LOC: 3ANU 12:05 → EMEROO 12:05 → 3ANU 16:58
PROVIDERS: ADMIT Internal Medicine; ATTEND Internal Medicine